=== PATIENT | female | born 1940 | race Caucasian/White ===

== ENCOUNTER 2018-12-16 15:41 | Emergency (ER) | payer MEDICARE, OTHER, SELFPAY ==
[2018-12-16 16:06] VITALS: BP 145/57; PULSE 69; RESP 20; TEMP 36.3; O2SAT 97
[2018-12-16 16:14] LABS: Appearance Urine UA SL CLOUDY; Bilirubin Urine UA NEGATIVE (NEGATIVE); Color Urine UA YELLOW; Glucose Urine UA 2+ g/dL (Negative); Ketones Urine UA NEGATIVE (NEGATIVE); Leukocyte Esterase Urine UA 1+ (NEGATIVE); Nitrite Urine UA NEGATIVE (Negative); Occult Blood Urine UA 2+ (Negative); Protein Urine UA NEGATIVE (Negative); Specific Gravity Urine UA 1.015 (1.000-1.035); Urobilinogen Urine UA 0.2 E.U./dL (0.2); pH Urine UA 5.5 (4.5-8.0)
[2018-12-16 16:21] LABS: RBC Urine 1-5/HPF (0-5/HPF); Squamous Epithelial Cell Urine 1-5 /HPF (0-5/HPF); WBC Urine 10-30/HPF (0-5/HPF)
[2018-12-16 16:22] LABS: Amorphous Sediment Urine 1+; Bacteria Urine Many (>30); Culture Indicated Urine Specimen Cultured; Mucus Urine 1+ (Negative)
--- NOTE | 2018-12-16 20:04 | DI.CT.S_ITS ---
PROCEDURE: CT KIDNEY URETER BLADDER (KUB) INDICATIONS: flank pain TECHNIQUE: Noncontrast 5 mm thick sections acquired from the diaphragms to the symphysis. 5 mm thick coronal and sagittal reformats were then performed. For radiation dose reduction, the following was used: automated exposure control, adjustment of mA and/or kV according to patient size. COMPARISON: None. FINDINGS: Image quality: Suboptimal for the evaluation of soft tissues given lack of intravenous contrast. Lung bases: 4 mm noncalcified right lower lobe pulmonary nodule and axial image 6 of series 3. Urinary system: There is a 2 mm nonobstructing nephrolith within the right kidney. No hydronephrosis bilaterally. There is bilateral renal cortical atrophy. No obstructing nephrolithiasis. The distal left ureter inserts on the anterolateral aspect of the bladder, consistent with postsurgical change. The truncated original distal left ureter is identified posterolateral to the bladder with a surgical clip noted. Ureters are otherwise nondilated bilaterally. No bladder calculi are visualized. Other solid organs: There are punctate calcifications within the right hepatic lobe. Cholelithiasis noted. There is tortuosity of the cystic duct. There is asymmetric enlargement of the pancreatic head measuring up to 4 cm in diameter, with coarse internal calcifications. Additional smaller calcified soft tissue nodules are noted adjacent to the pancreatic head, possibly representing calcified lymph nodes. There is diffuse fatty atrophy of the pancreatic body and tail. Peritoneum and bowel: Unenhanced bowel loops demonstrate normal wall thickness and caliber. No free fluid or air. No evidence of bowel obstruction. Appendix is not visualized on this exam, but there are no right lower quadrant inflammatory findings to suggest acute appendicitis. Nodes and vessels: No retroperitoneal or mesenteric adenopathy by size criteria. Aorta and inferior vena cava are normal in caliber. Moderate calcified plaque of the abdominal aorta and branch vessels noted. Abdominal wall: There is an approximately 7.0 cm fat-containing umbilical hernia. Pelvis: No free pelvic fluid. Bones: No suspicious bony lesions. No vertebral body compression fractures. Moderate multilevel degenerative changes of the size IMPRESSION: 1. 2 mm nonobstructing nephrolith in the right kidney. No hydronephrosis bilaterally. Postsurgical changes of the distal left ureter, suboptimally evaluated due to lack of intravenous contrast. 2. Cholelithiasis. 3. Enlarged pancreatic head with coarse internal calcifications, suboptimally evaluated due to lack of intravenous contrast. Adjacent smaller calcified nodules are noted. No comparison exams are available for review at this time. A pancreatic head mass cannot be excluded. Consider MRI for further evaluation. 4. Approximately 7.0 cm fat-containing umbilical hernia. 5. 4 mm noncalcified right lower lobe pulmonary nodule. Consider followup CT of the chest in one year to demonstrate stability if the patient has risk factors for development of lung malignancy (such as a history of smoking). Dictated by: Bradly Lweis M.D. on 12/16/2018 at 22:36 Approved by: Bradly Lewis M.D. on 12/16/2018 at 22:50
[2018-12-16 20:20] LABS: Add Manual Diff / Slide Review NO; Basophils Absolute Auto 0 /uL (0-100); Basophils Percent Auto 0.7 % (0-2); Eosinophils Absolute Auto 100 /uL (0-450); Eosinophils Percent Auto 2.4 % (2-4); Hematocrit 38.4 % (36-46); Hemoglobin 12.9 g/dL (12.0-16.0); Lymphocytes Absolute Auto 1500 /uL (1100-4500); Lymphocytes Percent Auto 25.3 % (25-40); Mean Corpuscular HGB Conc 33.5 % (30-36); Mean Corpuscular Hemoglobin 30.7 PG (26-34); Mean Corpuscular Volume 91.6 fL (80-100); Monocytes Absolute Auto 500 /uL (0-900); Neutrophils Absolute Auto 3600 /uL (1500-7000); Neutrophils Percent Auto 62.6 % (50-75); Platelet Count 215 X10^3/uL (150-400); Red Blood Cell Count 4.19 X10^6/uL (4.0-5.2); White Blood Cell Count 5.8 X10^3/uL (4.5-11.0)
[2018-12-16 20:36] LABS: Lactate (Lactic Acid) 1.3 mmol/L (0.7-2.1)
--- NOTE | 2018-12-16 20:36 | ED.ABDPAIN ---
HPI - Abdominal Pain <LAKISHA Beaver - Last Filed: 12/16/18 23:25> General Chief Complaint: Abdominal Pain Stated Complaint: low back pain/burning with urination x4 weeks Time Seen by Provider: 12/16/18 19:47 Source: patient Mode of arrival: ambulatory Limitations: no limitations History of Present Illness HPI narrative: The patient is a 78-year-old female nonsmoker with history of kidney stones who presents with chief complaint of flank pain, lower abdominal pain as well as dysuria urgency and frequency. She states that she just finished antibiotics for UTI, but does not know what she took. [facility] in [place], who confirms she just finished a prescription of Augmentin. She states she had a CT done 2-3 weeks ago at an outside facility, which found a kidney stone. She states she has very severe history of kidney stones and has had to have surgery multiple times. She states that despite finishing her antibiotics, she continues to have dysuria urgency and frequency. She states she has flank pain on her left side. The patient denies any fevers. She states that since her pain is so bad she vomits. Related Data Previous Rx's Medication Instructions Recorded ciprofloxacin HCl [Cipro] 500 mg PO BID #20 tab 12/16/18 ondansetron 4 mg PO TID PRN 5 Days #20 tab 12/16/18 tamsulosin [Flomax] 0.4 mg PO DAILY #7 cap 12/16/18 Review of Systems <LAKISHA Beaver - Last Filed: 12/16/18 23:25> Review of Systems GENERAL: Denies chills, fatigue, malaise, fever, sweats. HEENT: Denies sinus pain, ear pain, sore throat, difficulty swallowing, dizziness. RESPIRATORY: Denies dyspnea, cough, wheezing, hemoptysis, sputum. CARDIOVASCULAR: Denies chest pain, palpitations, orthopnea, edema, GASTROINTESTINAL: HPI : See HPI MUSCULOSKELETAL: denies weakness, joint pain, or bony pain SKIN: Denies rash, skin lesions, or other NEUROLOGIC: Denies weakness, headache, numbness, change in speech, confusion, seizures, incoordination. PSYCHIATRIC: No concerning psychosocial issues. 12 point review of systems is negative except for those stated above Exam <LAKISHA Beaver - Last Filed: 12/16/18 23:25> Narrative Exam Narrative: GENERAL: This is a well-nourished, well-developed patient, in no acute distress HEAD: Atraumatic. Normocephalic. No temporal or scalp tenderness. EYES: Pupils equal round and reactive. Extraocular motions intact. No scleral icterus. No injection or drainage. ENT: Nose without bleeding, purulent drainage or septal hematoma. Throat without erythema, tonsillar hypertrophy or exudate. Uvula midline. Airway patent. NECK: Trachea midline. No JVD or lymphadenopathy. Supple, nontender, no meningeal signs. CARDIOVASCULAR: Regular rate and rhythm RESPIRATORY: Clear to auscultation. Breath sounds equal bilaterally. No wheezes, rales, or rhonchi. No coughing. No increased respiratory effort and no stridor. No accessory muscle use. GASTROINTESTINAL: Abdomen soft, diffusely tender right lower quadrant, nondistended. No hepato-splenomegaly, or palpable masses. No guarding. Active bowel sounds. EXTREMITIES: No clubbing, cyanosis, or edema. No joint tenderness, effusion, or edema noted. BACK: Nontender without deformity or crepitance. Flank tenderness noted right side Neuro alert and oriented x4 SKIN: No rash or erythema. Initial Vital Signs Initial Vital Signs: Vital Signs Temperature 97.4 F L 12/16/18 16:06 Pulse Rate 69 12/16/18 16:06 Respiratory Rate 20 12/16/18 16:06 Blood Pressure 145/57 H 12/16/18 16:06 Pulse Oximetry 97 12/16/18 16:06 <Jelani Babcock DO - Last Filed: 12/16/18 23:45> Initial Vital Signs Initial Vital Signs: Vital Signs Temperature 97.4 F L 12/16/18 16:06 Pulse Rate 69 12/16/18 16:06 Respiratory Rate 20 12/16/18 16:06 Blood Pressure 145/57 H 12/16/18 16:06 Pulse Oximetry 97 12/16/18 16:06 Course <LAKISHA Beaver - Last Filed: 12/16/18 23:25> Orders Ordered: ED Orders 12/16/18 16:05 Urinalysis and Microscopic Stat Urine Culture Stat 12/16/18 20:00 Amylase Stat Complete Blood Count AUTO DIFF Stat Comprehensive Metabolic Panel Stat Lactate (Lactic Acid) Stat Lipase Stat Procalcitonin Stat 12/16/18 20:04 CT kidney ureter bladder (KUB) Stat Discontinued Medications Ciprofloxacin (Cipro) 500 mg PO NOW ONE Stop: 12/16/18 22:27 Last Admin: 12/16/18 22:51 Dose: 500 mg Vital Signs - 8 hr 12/16/18 16:06 12/16/18 21:00 12/16/18 22:25 Temperature 97.4 F L Pulse Rate 69 62 63 Respiratory Rate 20 15 16 Blood Pressure 145/57 H Blood Pressure [Left Arm] 140/61 148/51 H Pulse Oximetry 97 100 100 <Jelani Babcock DO - Last Filed: 12/16/18 23:45> Orders Ordered: ED Orders 12/16/18 16:05 Urinalysis and Microscopic Stat Urine Culture Stat 12/16/18 20:00 Amylase Stat Complete Blood Count AUTO DIFF Stat Comprehensive Metabolic Panel Stat Lactate (Lactic Acid) Stat Lipase Stat Procalcitonin Stat 12/16/18 20:04 CT kidney ureter bladder (KUB) Stat Discontinued Medications Ciprofloxacin (Cipro) 500 mg PO NOW ONE Stop: 12/16/18 22:27 Last Admin: 12/16/18 22:51 Dose: 500 mg Vital Signs - 8 hr 12/16/18 16:06 12/16/18 21:00 12/16/18 22:25 Temperature 97.4 F L Pulse Rate 69 62 63 Respiratory Rate 20 15 16 Blood Pressure 145/57 H Blood Pressure [Left Arm] 140/61 148/51 H Pulse Oximetry 97 100 100 MDM - Abdominal Pain <LAKISHA Beaver - Last Filed: 12/16/18 23:25> Lab Data Result diagrams: 12/16/18 20:00 12/16/18 20:00 Lab Results 12/16/18 12/16/18 12/16/18 Range/Units 16:05 20:00 20:00 WBC 5.8 (4.5-11.0) X10^3/uL RBC 4.19 (4.0-5.2) X10^6/uL Hgb 12.9 (12.0-16.0) g/dL Hct 38.4 (36-46) % MCV 91.6 (80-100) fL MCH 30.7 (26-34) PG MCHC 33.5 (30-36) % RDW 14.0 (11.6-14.8) % Plt Count 215 (150-400) X10^3/uL Neut % (Auto) 62.6 (50-75) % Lymph % (Auto) 25.3 (25-40) % [place] % (Auto) 9.0 (3-14) % Eos % (Auto) 2.4 (2-4) % Baso % (Auto) 0.7 (0-2) % Neut # (Auto) 3600 (6192-6442) /uL Lymph # (Auto) 1500 (2438-9335) /uL [place] # (Auto) 500 (0-900) /uL Eos # (Auto) 100 (0-450) /uL Baso # (Auto) 0 (0-100) /uL Sodium (137-145) mmol/L Potassium (3.4-5.1) mmol/L Chloride (98-107) mmol/L Carbon Dioxide (22-32) mmol/L BUN (7-17) mg/dL Creatinine (0.52-1.04) mg/dL Estimated GFR (>60) mL/min BUN/Creatinine Ratio (6-22) Glucose (80-110) mg/dL Lactate (0.7-2.1) mmol/L Calcium (8.4-10.2) mg/dL Total Bilirubin (0.2-1.3) mg/dL AST (14-36) IU/L ALT (9-52) IU/L Alkaline Phosphatase (38-126) U/L Total Protein (6.3-8.2) g/dL Albumin (3.5-5.0) g/dL Globulin (1.7-4.1) g/dL Albumin/Globulin Ratio (1.0-2.8) Amylase (30-110) U/L Lipase (23-300) U/L Procalcitonin < 0.05 (<0.5) ng/mL Urine Color Yellow Urine Appearance Sl cloudy Urine pH 5.5 (4.5-8.0) Ur Specific [place] 1.015 (1.000-1.035) Urine Protein Negative (Negative) Urine Glucose (UA) 2+ H (Negative) g/dL Urine Ketones Negative (NEGATIVE) Urine Occult Blood 2+ H (Negative) Urine Nitrate Negative (Negative) Urine Bilirubin Negative (NEGATIVE) Urine Urobilinogen 0.2 (0.2) E.U./dL Ur Leukocyte Esterase 1+ H (NEGATIVE) Urine RBC 1-5/hpf (0-5/HPF) Urine WBC 10-30/hpf H (0-5/HPF) Ur Squamous Epith Cells 1-5 /hpf (0-5/HPF) Amorphous Sediment 1+ Urine Bacteria Many (>30) H (None) Urine Mucus 1+ H (Negative) Ur Culture Indicated? Specimen cultured 12/16/18 12/16/18 Range/Units 20:00 20:00 WBC (4.5-11.0) X10^3/uL RBC (4.0-5.2) X10^6/uL Hgb (12.0-16.0) g/dL Hct (36-46) % MCV (80-100) fL MCH (26-34) PG MCHC (30-36) % RDW (11.6-14.8) % Plt Count (150-400) X10^3/uL Neut % (Auto) (50-75) % Lymph % (Auto) (25-40) % [place] % (Auto) (3-14) % Eos % (Auto) (2-4) % Baso % (Auto) (0-2) % Neut # (Auto) (0904-4121) /uL Lymph # (Auto) (4322-5501) /uL [place] # (Auto) (0-900) /uL Eos # (Auto) (0-450) /uL Baso # (Auto) (0-100) /uL Sodium 139 (137-145) mmol/L Potassium 3.7 (3.4-5.1) mmol/L Chloride 103 (98-107) mmol/L Carbon Dioxide 29 (22-32) mmol/L BUN 25 H (7-17) mg/dL Creatinine 1.10 H (0.52-1.04) mg/dL Estimated GFR 48.2 L (>60) mL/min BUN/Creatinine Ratio 22.7 H (6-22) Glucose 218 H (80-110) mg/dL Lactate 1.3 (0.7-2.1) mmol/L Calcium 8.4 (8.4-10.2) mg/dL Total Bilirubin 0.6 (0.2-1.3) mg/dL AST 32 (14-36) IU/L ALT 34 (9-52) IU/L Alkaline Phosphatase 183 H (38-126) U/L Total Protein 6.6 (6.3-8.2) g/dL Albumin 3.7 (3.5-5.0) g/dL Globulin 2.9 (1.7-4.1) g/dL Albumin/Globulin Ratio 1.3 (1.0-2.8) Amylase 59 (30-110) U/L Lipase 29 (23-300) U/L Procalcitonin (<0.5) ng/mL Urine Color Urine Appearance Urine pH (4.5-8.0) Ur Specific [place] (1.000-1.035) Urine Protein (Negative) Urine Glucose (UA) (Negative) g/dL Urine Ketones (NEGATIVE) Urine Occult Blood (Negative) Urine Nitrate (Negative) Urine Bilirubin (NEGATIVE) Urine Urobilinogen (0.2) E.U./dL Ur Leukocyte Esterase (NEGATIVE) Urine RBC (0-5/HPF) Urine WBC (0-5/HPF) Ur Squamous Epith Cells (0-5/HPF) Amorphous Sediment Urine Bacteria (None) Urine Mucus (Negative) Ur Culture Indicated? MDM Narrative Medical decision making narrative: The patient is a 78-year-old female who presents with continued urinary symptoms. She also has recent history of kidney stones. I did obtain a CT KUB to ensure that she did have any obstructing stones. It appears she did pass her previous 5 mm stone. I did obtain her previous CT records from outside facility. She does not have a white count, does not have an elevated lactate and procalcitonin. She does have a 2 mm stone in her right kidney which should not be causing her distress. Her creatinine is 1.1. I did speak with Dr. Andrew from [facility] regarding the patient given her continued stones, elevated creatinine, and concerns for infection. I did place the patient on Cipro and give her prescriptions of Flomax as well as Zofran. She declined any pain medication. Of note on the patient's CT scan, a pulmonary nodules noted. I discussed this with the patient encourage her to follow up with her primary care provider as soon as possible. She does have a scheduled appointment in the next few days. The patient stated understanding of return precautions including inability keep down fluids, high fever chest pain shortness of breath etc. Discussed at length following up with primary care provider as well as Urology if needed. Patient does not want contact information for [facility] urology as it is too far away. She is hemodynamically stable and afebrile throughout her stay in the emergency department. Discussed monitoring for tendon pain on Cipro. No questions or concerns upon discharge. <Jelani Babcock, DO - Last Filed: 12/16/18 23:45> Lab Data Lab Results 12/16/18 12/16/18 12/16/18 Range/Units 16:05 20:00 20:00 WBC 5.8 (4.5-11.0) X10^3/uL RBC 4.19 (4.0-5.2) X10^6/uL Hgb 12.9 (12.0-16.0) g/dL Hct 38.4 (36-46) % MCV 91.6 (80-100) fL MCH 30.7 (26-34) PG MCHC 33.5 (30-36) % RDW 14.0 (11.6-14.8) % Plt Count 215 (150-400) X10^3/uL Neut % (Auto) 62.6 (50-75) % Lymph % (Auto) 25.3 (25-40) % [place] % (Auto) 9.0 (3-14) % Eos % (Auto) 2.4 (2-4) % Baso % (Auto) 0.7 (0-2) % Neut # (Auto) 3600 (3024-4780) /uL Lymph # (Auto) 1500 (5525-9531) /uL [place] # (Auto) 500 (0-900) /uL Eos # (Auto) 100 (0-450) /uL Baso # (Auto) 0 (0-100) /uL Sodium (137-145) mmol/L Potassium (3.4-5.1) mmol/L Chloride (98-107) mmol/L Carbon Dioxide (22-32) mmol/L BUN (7-17) mg/dL Creatinine (0.52-1.04) mg/dL Estimated GFR (>60) mL/min BUN/Creatinine Ratio (6-22) Glucose (80-110) mg/dL Lactate (0.7-2.1) mmol/L Calcium (8.4-10.2) mg/dL Total Bilirubin (0.2-1.3) mg/dL AST (14-36) IU/L ALT (9-52) IU/L Alkaline Phosphatase (38-126) U/L Total Protein (6.3-8.2) g/dL Albumin (3.5-5.0) g/dL Globulin (1.7-4.1) g/dL Albumin/Globulin Ratio (1.0-2.8) Amylase (30-110) U/L Lipase (23-300) U/L Procalcitonin < 0.05 (<0.5) ng/mL Urine Color Yellow Urine Appearance Sl cloudy Urine pH 5.5 (4.5-8.0) Ur Specific [place] 1.015 (1.000-1.035) Urine Protein Negative (Negative) Urine Glucose (UA) 2+ H (Negative) g/dL Urine Ketones Negative (NEGATIVE) Urine Occult Blood 2+ H (Negative) Urine Nitrate Negative (Negative) Urine Bilirubin Negative (NEGATIVE) Urine Urobilinogen 0.2 (0.2) E.U./dL Ur Leukocyte Esterase 1+ H (NEGATIVE) Urine RBC 1-5/hpf (0-5/HPF) Urine WBC 10-30/hpf H (0-5/HPF) Ur Squamous Epith Cells 1-5 /hpf (0-5/HPF) Amorphous Sediment 1+ Urine Bacteria Many (>30) H (None) Urine Mucus 1+ H (Negative) Ur Culture Indicated? Specimen cultured 12/16/18 12/16/18 Range/Units 20:00 20:00 WBC (4.5-11.0) X10^3/uL RBC (4.0-5.2) X10^6/uL Hgb (12.0-16.0) g/dL Hct (36-46) % MCV (80-100) fL MCH (26-34) PG MCHC (30-36) % RDW (11.6-14.8) % Plt Count (150-400) X10^3/uL Neut % (Auto) (50-75) % Lymph % (Auto) (25-40) % [place] % (Auto) (3-14) % Eos % (Auto) (2-4) % Baso % (Auto) (0-2) % Neut # (Auto) (7992-7327) /uL Lymph # (Auto) (1640-3286) /uL [place] # (Auto) (0-900) /uL Eos # (Auto) (0-450) /uL Baso # (Auto) (0-100) /uL Sodium 139 (137-145) mmol/L Potassium 3.7 (3.4-5.1) mmol/L Chloride 103 (98-107) mmol/L Carbon Dioxide 29 (22-32) mmol/L BUN 25 H (7-17) mg/dL Creatinine 1.10 H (0.52-1.04) mg/dL Estimated GFR 48.2 L (>60) mL/min BUN/Creatinine Ratio 22.7 H (6-22) Glucose 218 H (80-110) mg/dL Lactate 1.3 (0.7-2.1) mmol/L Calcium 8.4 (8.4-10.2) mg/dL Total Bilirubin 0.6 (0.2-1.3) mg/dL AST 32 (14-36) IU/L ALT 34 (9-52) IU/L Alkaline Phosphatase 183 H (38-126) U/L Total Protein 6.6 (6.3-8.2) g/dL Albumin 3.7 (3.5-5.0) g/dL Globulin 2.9 (1.7-4.1) g/dL Albumin/Globulin Ratio 1.3 (1.0-2.8) Amylase 59 (30-110) U/L Lipase 29 (23-300) U/L Procalcitonin (<0.5) ng/mL Urine Color Urine Appearance Urine pH (4.5-8.0) Ur Specific [place] (1.000-1.035) Urine Protein (Negative) Urine Glucose (UA) (Negative) g/dL Urine Ketones (NEGATIVE) Urine Occult Blood (Negative) Urine Nitrate (Negative) Urine Bilirubin (NEGATIVE) Urine Urobilinogen (0.2) E.U./dL Ur Leukocyte Esterase (NEGATIVE) Urine RBC (0-5/HPF) Urine WBC (0-5/HPF) Ur Squamous Epith Cells (0-5/HPF) Amorphous Sediment Urine Bacteria (None) Urine Mucus (Negative) Ur Culture Indicated? Discharge Plan Departure Patient Disposition: Home Clinical Impression: Kidney stone on right side, Acute UTI Discharge Date/Time: 12/16/18 23:20 Interventions: ED Discharge Assessment Last Done: 12/16/18 23:20 Instructions: Kidney Stones -- Adult, DI for Kidney Stones, DI for Urinary Tract Infection (UTI) Activity Restrictions/Additional Instructions: Your urine is infected. I am starting on Cipro which is an antibiotic. We are doing a urine culture to make sure that this takes care of your infection Your 5 mm kidney stone looks like it has passed. You have a small stone in your right kidney, which should not be causing any pain. Your CT also picked up a right lower lobe pulmonary nodule. Please follow up with primary care provider about this finding You can feel free to follow up with the urologist regarding her kidney stones. Please follow up with primary care provider soon as possible. Monitor for fever, inability keep down fluids or any acute concerns come back to the emergency department if necessary Prescriptions: New ciprofloxacin HCl [Cipro] 500 mg tablet 500 mg PO BID Qty: 20 RF: 0 tamsulosin [Flomax] 0.4 mg capsule 0.4 mg PO DAILY Qty: 7 RF: 0 ondansetron 4 mg tablet,disintegrating 4 mg PO TID PRN (Reason: nausea and vomiting) 5 Days Qty: 20 RF: 0 Referrals: Tammie Baum MD [Primary Care Provider] - <Jelani Babcock DO - Last Filed: 12/16/18 23:45> Cosign ED Attending [place] Attestation: I was available for consultation during this patient's emergency department encounter
[2018-12-16 20:37] LABS: Alanine Aminotransferase 34 IU/L (9-52); Albumin 3.7 g/dL (3.5-5.0); Albumin Globulin Ratio 1.3 (1.0-2.8); Alkaline Phosphatase 183 U/L (38-126); Amylase 59 U/L (30-110); Aspartate Aminotransferase 32 IU/L (14-36); BUN Creatinine Ratio 22.7 (6-22); Bilirubin Total 0.6 mg/dL (0.2-1.3); Blood Urea Nitrogen 25 mg/dL (7-17); Calcium 8.4 mg/dL (8.4-10.2); Carbon Dioxide 29 mmol/L (22-32); Chloride 103 mmol/L (98-107); Estimated Glomerular Filt Rate 48.2 mL/min (>60); Globulin 2.9 g/dL (1.7-4.1); Glucose 218 mg/dL (80-110); HEMOLYSIS < 15 (0-50); Lipase 29 U/L (23-300); Potassium 3.7 mmol/L (3.4-5.1); Sodium 139 mmol/L (137-145); Total Protein 6.6 g/dL (6.3-8.2)
[2018-12-16 20:54] LABS: Procalcitonin < 0.05 ng/mL (<0.5)
[2018-12-16 21:00] VITALS: BP 140/61; PULSE 62; RESP 15; O2SAT 100
[2018-12-16 22:25] VITALS: BP 148/51; PULSE 63; RESP 16; O2SAT 100
[2018-12-16] MEDS: CIPROFLOXACIN 500 MG TABLET PO (22:51)
== END 2018-12-16 23:20 | disposition home or self-care (01) ==
PROVIDERS: Emergency Medicine; Emergency Provider Nurse Practitioner Family; PCP Family Medicine
DX: N20.0 Calculus of kidney (principal); N39.0 Urinary tract infection, site not specified
CPT/HCPCS: 36591; 74176; 80053; 81001; 82150; 83605; 83690; 84145; 85025; 87077; 87086; 87186; 99282; 99284

== ENCOUNTER 2020-11-18 16:05 | Emergency (ER) | payer MEDICARE, OTHER, SELFPAY ==
[2020-11-18] VITALS (20 sets, daily range): BP systolic 117–216; BP diastolic 46–82; PULSE 69–102; RESP 0–33; TEMP 37.1; O2SAT 79–99; BMI 37.0
--- NOTE | 2020-11-18 16:10 | DI.RAD.S_ITS ---
PROCEDURE: XR CHEST 1V INDICATIONS: chest pain TECHNIQUE: One view of the chest was acquired. COMPARISON: None. FINDINGS: Surgical changes and devices: Overlying EKG wires. Exam is somewhat limited given patient positioning and body habitus. Lungs and pleura: There is slight hyperinflation. No focal consolidation, pneumothorax, or pleural effusion. Mediastinum: Mediastinal contours appear normal. Heart size is normal. Bones and chest wall: No suspicious bony lesions. Overlying soft tissues appear unremarkable. IMPRESSION: No evidence of an acute cardiopulmonary abnormality within limits of this exam. Dictated by: Kyrie Holliday D.O. on 11/18/2020 at 15:36 Approved by: Kyrie Holliday D.O. on 11/18/2020 at 15:37
--- NOTE | 2020-11-18 17:11 | ED.CHESTPAIN ---
HPI - Chest Pain General Chief Complaint: Abdominal Pain Stated Complaint: Chest pain Time Seen by Provider: 11/18/20 16:10 Source: patient Mode of arrival: Ambulatory Limitations: no limitations Related Data Previous Rx's Medication Instructions Recorded ciprofloxacin HCl [Cipro] 500 mg PO BID #20 tab 12/16/18 tamsulosin [Flomax] 0.4 mg PO DAILY #7 cap 12/16/18 Allergies Allergy/AdvReac Type Severity Reaction Status Date / Time No Known Drug Allergies Allergy Verified 11/18/20 16:24 Patient History Social History Smoking Status: Former smoker Smoking Status: Former smoker alcohol intake frequency: a few times a month Substance Use Type: does not use Exam Initial Vital Signs Initial Vital Signs: Vital Signs Pulse Rate 69 11/18/20 16:24 Respiratory Rate 18 11/18/20 16:24 Blood Pressure 181/76 H 11/18/20 16:24 Pulse Oximetry 99 11/18/20 16:24 Course Orders Ordered: ED Orders 11/18/20 16:10 XR chest 1V Stat Complete Blood Count AUTO DIFF Stat Comprehensive Metabolic Panel Stat Lipase Stat Magnesium Stat Partial Thromboplastin Time Stat Prothrombin Time INR Stat Troponin & CK Cardiac Panel Stat EKG-12 Lead Stat 11/18/20 16:35 Urine Microscopic Stat 11/18/20 16:45 Blood Culture Stat Lactate (Lactic Acid) Stat Vital Signs Vital signs: Vital Signs - 8 hr 11/18/20 16:24 Pulse Rate 69 Respiratory Rate 18 Blood Pressure 181/76 H Pulse Oximetry 99 MDM - Chest Pain Lab Data Attestation: I reviewed the patient's lab results. Labs: Urine Dip Bedside Urine Glucose Negative Bedside Urine Bilirubin - Negative Bedside Urine Ketone - Negative Urine Specific [place] 1.030 Bedside Urine Occult Blood + Bedside Urine pH 6 Bedside Urine Protein + 30 Bedside Urine Urobilinogen 1+ 2mg Bedside Urine Nitrite - Negative Bedside Urine Leukocytes ++ 125 Esterase Imaging Data Chest x-ray: Radiologist's Impression: [address] [id number] ReportSigned Patient: Nelida Mena MMR#: [id number]: [id number]:[id number]/Sex: 80 / FDate of Service: 11/18/20Loc: EDAccession Number: [id number] Procedure: XR chest 1V Ordering Provider: Jesus Lares D.O. PROCEDURE: XR CHEST 1V INDICATIONS: chest pain TECHNIQUE: One view of the chest was acquired. COMPARISON: None. FINDINGS: Surgical changes and devices: Overlying EKG wires. Exam is somewhat limited given patient positioning and body habitus. Lungs and pleura: There is slight hyperinflation. No focal consolidation, pneumothorax, or pleural effusion. Mediastinum: Mediastinal contours appear normal. Heart size is normal. Bones and chest wall: No suspicious bony lesions. Overlying soft tissues appear unremarkable. IMPRESSION: No evidence of an acute cardiopulmonary abnormality within limits of this exam. Dictated by: Kyrie Holliday D.O. on 11/18/2020 at 15:36 Approved by: Kyrie Holliday D.O. on 11/18/2020 at 15:37 ECG Data Attestation: I personally reviewed and interpreted this ECG as follows: Interpretation: Likely sinus rhythm although difficult to discern P waves. Rate 82, P are 146 QRS [address] change. Patient has what appears to be motion artifact obscuring. No prior EKG for comparison. Discharge Plan Departure Prescriptions: No Action ciprofloxacin HCl [Cipro] 500 mg tablet 500 mg PO BID Qty: 20 RF: 0 tamsulosin [Flomax] 0.4 mg capsule 0.4 mg PO DAILY Qty: 7 RF: 0
[2020-11-18 17:32] LABS: Lactate (Lactic Acid) 3.7 mmol/L (0.7-2.1)
[2020-11-18 17:34] LABS: Alanine Aminotransferase 112 IU/L (<35); Albumin 4.4 g/dL (3.5-5.0); Albumin Globulin Ratio 1.2 (1.0-2.8); Alkaline Phosphatase 596 U/L (38-126); Aspartate Aminotransferase 304 IU/L (14-36); BUN Creatinine Ratio 24.1 (6-22); Blood Urea Nitrogen 26 mg/dL (7-17); Calcium 9.3 mg/dL (8.4-10.2); Carbon Dioxide 24 mmol/L (22-32); Chloride 100 mmol/L (98-107); Creatine Kinase 95 U/L (30-135); Estimated Glomerular Filt Rate 48.9 mL/min (>60); Globulin 3.6 g/dL (1.7-4.1); Glucose 181 mg/dL (80-110); HEMOLYSIS 45 (0-50); Magnesium 1.7 mg/dL (1.6-2.3); Potassium 3.8 mmol/L (3.4-5.1); Sodium 138 mmol/L (137-145)
[2020-11-18 17:42] LABS: Lipase 2860 U/L (23-300)
[2020-11-18 17:45] LABS: Troponin I < 0.012 ng/mL (0.01-0.034)
[2020-11-18 17:47] LABS: RBC Urine 5-10/HPF (0-5/HPF); WBC Urine 10-30/HPF (0-5/HPF)
[2020-11-18 17:48] LABS: Bacteria Urine Many (>30); Culture Indicated Urine Specimen Cultured; Mucus Urine 1+ (Negative); Squamous Epithelial Cell Urine 1-5 /HPF (0-5/HPF)
--- NOTE | 2020-11-18 17:51 | DI.CT.S_ITS ---
PROCEDURE: CT ABDOMEN PELVIS W CON INDICATIONS: abdominal pain, elevated LFTs. TECHNIQUE: After the administration of intravenous contrast, 5 mm thick sections acquired from the diaphragm to the symphysis. 5 mm coronal and sagittal reformats were acquired. For radiation dose reduction, the following was used: automated exposure control, adjustment of mA and/or kV according to patient size. COMPARISON: , , ABDOMEN LIMITED, 11/18/2020, 18:06. FINDINGS: Image quality: Reduced by absence of oral contrast.. ABDOMEN: Lung bases: Lung bases are clear. Heart size is normal. Solid organs: Liver is normal in size and enhancement but there is moderate intrahepatic biliary distension.. Gallbladder is mildly distended as noted during ultrasound scanning earlier today, and there are 2 small calcified gallstones within the gallbladder lumen that are nonobstructive. The common bile duct extends inferiorly towards the duodenal lumen, but is impinged upon by a partially calcified pancreatic head mass which measures up to 4.0 cm AP and 3.9 cm transverse. The common duct itself measures up to 1.6 cm. Partially calcified adjacent lymph nodes are noted just at the midline anterior to the aorta level, mid renal anatomic localization. There may be noncalcified nodes extending anteriorly towards the ligament of Treitz, but these may represent unopacified bowel loops given the absence of oral contrast. A small calcified lymph node lies immediately anterior to the inferior vena cava seen on series 2, image 25. The epicenter of the pancreatic mass is series 2, image 31. Biliary system is non dilated. Pancreas enhances abnormally from the pancreatic head mass leftward, hypoenhancing, with an appearance of generalized pancreatic body and tail atrophy.. Spleen is normal in size and enhancement. No adrenal nodules. Kidneys demonstrate normal size and enhancement, without hydronephrosis. Peritoneum and bowel: Bowel loops demonstrate normal wall thickness and caliber. No free fluid or air. Nodes and vessels: No retroperitoneal or mesenteric adenopathy by size criteria. Aorta and inferior vena cava are normal in size. Miscellaneous: No ventral hernias. PELVIS: Genitourinary: Bladder wall thickness is normal. Miscellaneous: No inguinal hernias or adenopathy. Bones: No suspicious bony lesions. No vertebral body compression fractures. IMPRESSION: Abnormal distension of the common bile duct is secondary to a pancreatic head mass with internal calcifications. Several small lymph nodes contain calcifications also immediately adjacent. What may be unopacified small bowel loops extend forward from the mass area to the ligament of Treitz area, and the absence of oral contrast disallows differentiating between unopacified bowel loops and noncalcified lymph nodes in that area. Intrahepatic biliary distension is present, associated with the obstructive influence by the pancreatic head mass. The pancreatic parenchyma is relatively atrophic from the pancreatic head mass area leftward. Dictated by: Rick Alvarenga M.D. on 11/18/2020 at 19:13 Approved by: Rick lAvarenga M.D. on 11/18/2020 at 19:37
--- NOTE | 2020-11-18 17:56 | DI.US.S_ITS ---
PROCEDURE: US ABDOMEN LIMITED INDICATIONS: RIGHT UPPER QUADRANT PAIN TECHNIQUE: Real-time focused scanning was performed of the abdomen, with image documentation. COMPARISON: CT KUB 12/16/18. FINDINGS: The liver is normal in size and echotexture, and demonstrates no intrahepatic biliary distension. The gallbladder contains stones measuring approximately 8 mm in diameter, and the gallbladder is abnormally enlarged at 2.8 x 3.4 x 8.2 cm. The common hepatic duct is abnormally dilated at 10.1 cm and the common bile duct more distally measures 13.9 cm. Pancreas is poorly visualized due to bowel gas. IMPRESSION: Gallstones within the gallbladder lumen. Abnormal biliary ductal distension. MR cholangiogram may be warranted for accurate assessment of distal common duct stone. Dictated by: Rick Alvarenga M.D. on 11/18/2020 at 18:44 Approved by: Rick Alvarenga M.D. on 11/18/2020 at 18:46
[2020-11-18] MEDS: ONDANSETRON 4 MG/2 ML INJ IV (18:05)
[2020-11-18] MEDS: MORPHINE 4 MG/ML INJ IV ×2 (18:05→22:09)
[2020-11-18] MEDS: SODIUM CHLORIDE 0.9% 1,000 ML 1000 ML IV (18:06)
--- NOTE | 2020-11-18 18:25 | ED_ITS ---
HPI - Abdominal Pain General Chief Complaint: Abdominal Pain Stated Complaint: Chest pain Time Seen by Provider: 11/18/20 18:25 Source: patient Mode of arrival: Ambulatory Limitations: no limitations History of Present Illness HPI narrative: Patient is a 80-year-old female with history of pancreatic cancer presenting with abdominal pain and chest pain. She says it started last evening around 9:00 p.m. but got worse after she had lunch today of aches. She is quite tender in her right upper quadrant. She does have radiation into her chest at times. She feels nauseous. She is being treated for pancreatic cancer in [place]. She denies a fever but is having quite a lot of chills and can not seem to get warm. MD complaint: abdominal pain Onset (ago): day(s) (1) Pain Consistency: constant Location: RUQ and epigastric Severity: moderate Severity scale (1-10): 7 Quality: sharp Related Data Home Medications Medication Instructions Recorded Confirmed atorvastatin 40 mg PO DAILY 11/18/20 11/18/20 cholecalciferol (vitamin D3) 1,250 mcg PO QWEEK 11/18/20 11/18/20 diphenoxylate-atropine tab 11/18/20 11/18/20 hydrochlorothiazide 25 mg 11/18/20 insulin aspart U-100 unit SUBCUT 11/18/20 11/18/20 insulin aspart U-100 [Novolog unit SUBCUT 11/18/20 11/18/20 Flexpen U-100 Insulin] lisinopril 20 mg 11/18/20 omeprazole 40 mg PO BID 11/18/20 11/18/20 sertraline 100 mg PO DAILY 11/18/20 11/18/20 solifenacin 10 mg PO 11/18/20 Allergies Allergy/AdvReac Type Severity Reaction Status Date / Time No Known Drug Allergies Allergy Verified 11/18/20 16:24 Review of Systems Review of Systems ROS Unobtainable: All systems reviewed & are unremarkable except as noted in HPI and below Constitutional Constitutional: Reports chills, Denies fever(s), Denies frequent falls and Denies poor appetite ENT Ears, Nose, Mouth, and Throat: Denies change in voice, Denies dizziness, Denies neck pain and Denies sore throat Cardiovascular Cardiovascular: Reports chest pain, Denies irregular heart rhythm, Denies lightheadedness, Denies palpitations, Denies dyspnea, Denies dyspnea on exertion and Denies orthopnea Respiratory Respiratory: Denies cough, Denies dyspnea, Denies dyspnea on exertion and Denies wheezing Gastrointestinal Gastrointestinal: Reports as per HPI, Reports abdominal pain and Reports nausea Genitourinary Genitourinary: Denies urinary hesitancy and Denies urinary incontinence Genitourinary: Denies urinary incontinence and Denies urinary hesitancy Musculoskeletal Musculoskeletal: Denies back pain, Denies myalgias, Denies neck pain and Denies numbness Integumentary/Breasts Skin/Breast: Denies pruritus, Denies erythema, Denies rash and Denies wounds Neurologic Neurologic: Denies behavioral changes, Denies confusion, Denies dizziness, Denies frequent falls and Denies numbness Psychiatric Psychiatric: Denies behavioral changes and Denies confusion Endocrine Endocrine: Denies palpitations Allergic/Immunologic Allergic/Immunologic: Denies wheezing Patient History Medical History (Updated 11/18/20 @ 21:48 by Megan Almanza DO) Kidney stone on left side Pancreatic cancer Social History Smoking Status: Former smoker Smoking Status: Former smoker alcohol intake frequency: a few times a month Substance Use Type: does not use Exam Initial Vital Signs Initial Vital Signs: Vital Signs Pulse Rate 72 11/18/20 16:21 Respiratory Rate 14 11/18/20 16:21 Pulse Oximetry 94 11/18/20 16:21 GENERAL: Alert 80-year-old female BMI 37 appears uncomfortable HEENT: Head atraumatic,EOMI, pupils reactive, face symmetric, moist mucous membranes CARDIOVASCULAR: Regular rate and rhythm without murmurs, rubs or gallops. RESPIRATORY: Breath sounds equal bilaterally, no wheezes rales or rhonchi. ABDOMEN: Soft, tender right upper quadrant epigastric positive Thomas sign EXTREMITIES: Normal range of motion, no clubbing or edema. Neurovascularly intact NEUROLOGICAL: Alert and oriented x4.Normal gait and speech. Cranial nerves II through XII grossly intact. SKIN: Warm, dry, no laceration, no petechiae, no rashes or lesions. Course Orders Ordered: ED Orders 11/18/20 17:51 CT abdomen pelvis w con Stat 11/18/20 17:56 US abdomen limited Stat 11/18/20 18:35 Complete Blood Count AUTO DIFF Stat Partial Thromboplastin Time Stat Prothrombin Time INR Stat Discontinued Medications Sodium Chloride (Normal Saline 0.9%) 1,000 mls @ 1,000 mls/hr IV BOLUS ONE Stop: 11/18/20 18:50 Last Infusion: 11/18/20 19:54 Dose: 0 mls/hr Documented by: Admin: 11/18/20 18:06 Dose: 1,000 mls/hr Documented by: TE Piperacillin/Tazobactam/Dextrose (Zosyn) 4.5 gm in 100 mls @ 200 mls/hr IV NOW AYSHA Piperacillin/Tazobactam/Dextrose (Zosyn) 4.5 gm in 100 mls @ 200 mls/hr IV NOW AYSHA Piperacillin Sod/Tazobactam (Sod 4.5 gm/ Sodium Chloride) 100 mls @ 100 mls/hr IV NOW ONE Stop: 11/18/20 21:44 Last Infusion: 11/18/20 22:10 Dose: 0 mls/hr Documented by: Admin: 11/18/20 21:16 Dose: 100 mls/hr Documented by: TE Morphine Sulfate (Morphine 4 Mg/Ml Inj) 4 mg IV NOW ONE Stop: 11/18/20 17:52 Last Admin: 11/18/20 18:05 Dose: 4 mg Documented by: TE Morphine Sulfate (Morphine 4 Mg/Ml Inj) 4 mg IV NOW ONE Stop: 11/18/20 22:07 Last Admin: 11/18/20 22:09 Dose: 4 mg Documented by: TE Ondansetron HCl (Ondansetron 4 Mg/2 Ml Inj) 4 mg IV NOW ONE Stop: 11/18/20 17:52 Last Admin: 11/18/20 18:05 Dose: 4 mg Documented by: TE Vital Signs Vital signs: Vital Signs - 8 hr 11/18/20 19:11 11/18/20 19:13 11/18/20 19:30 Pulse Rate 102 H 101 H 101 H Respiratory Rate 21 20 24 Blood Pressure 197/75 H 184/79 H Pulse Oximetry 92 11/18/20 20:00 11/18/20 20:30 11/18/20 20:31 Pulse Rate 100 H 97 H 97 H Respiratory Rate 21 19 15 Blood Pressure 184/75 H 169/67 H Pulse Oximetry 93 94 91 11/18/20 21:06 11/18/20 21:09 11/18/20 21:30 Pulse Rate 99 H 98 H 99 H Respiratory Rate 18 17 Blood Pressure 117/46 L 118/48 L Pulse Oximetry 95 93 96 11/18/20 22:00 Pulse Rate 97 H Respiratory Rate 18 Blood Pressure 133/60 Pulse Oximetry 94 MDM - Abdominal Pain Lab Data Attestation: I reviewed the patient's lab results. Result diagrams: 11/18/20 18:35 11/18/20 17:00 Labs: Lab Results 11/18/20 11/18/20 11/18/20 Range/Units 16:22 17:00 17:00 WBC (4.5-11.0) X10^3/uL RBC (4.0-5.2) X10^6/uL Hgb (12.0-16.0) g/dL Hct (36-46) % MCV (80-100) fL MCH (26-34) PG MCHC (30-36) % RDW (11.6-14.8) % Plt Count (150-400) X10^3/uL Neut % (Auto) (50-75) % Lymph % (Auto) (25-40) % [place] % (Auto) (3-14) % Eos % (Auto) (2-4) % Baso % (Auto) (0-2) % Neut # (Auto) (2659-5891) /uL Lymph # (Auto) (4144-1743) /uL [place] # (Auto) (0-900) /uL Eos # (Auto) (0-450) /uL Baso # (Auto) (0-100) /uL PT (10.1-12.7) SECONDS INR (0.9-1.3) APTT (26.4-36.2) SECONDS Sodium 138 (137-145) mmol/L Potassium 3.8 (3.4-5.1) mmol/L Chloride 100 (98-107) mmol/L Carbon Dioxide 24 (22-32) mmol/L BUN 26 H (7-17) mg/dL Creatinine 1.08 H (0.52-1.04) mg/dL Estimated GFR 48.9 L (>60) mL/min BUN/Creatinine Ratio 24.1 H (6-22) Glucose 181 H (80-110) mg/dL Lactate 3.7 H (0.7-2.1) mmol/L Calcium 9.3 (8.4-10.2) mg/dL Magnesium 1.7 (1.6-2.3) mg/dL Total Bilirubin 3.0 H (0.2-1.3) mg/dL AST 304 H (14-36) IU/L ALT 112 H (<35) IU/L Alkaline Phosphatase 596 H (38-126) U/L Total Creatine Kinase 95 (30-135) U/L CK-MB (CK-2) TNP CK-MB (CK-2) Rel Index TNP Troponin I < 0.012 (0.01-0.034) ng/mL Total Protein 8.0 (6.3-8.2) g/dL Albumin 4.4 (3.5-5.0) g/dL Globulin 3.6 (1.7-4.1) g/dL Albumin/Globulin Ratio 1.2 (1.0-2.8) Lipase 2860 H (23-300) U/L Urine RBC 5-10/hpf H (0-5/HPF) Urine WBC 10-30/hpf H (0-5/HPF) Ur Squamous Epith Cells 1-5 /hpf (0-5/HPF) Urine Bacteria Many (>30) H (None) Urine Mucus 1+ H (Negative) Ur Culture Indicated? Specimen cultured SARS-CoV-2 (PCR) (Negative) 11/18/20 11/18/20 11/18/20 Range/Units 17:08 18:35 18:35 WBC 10.4 (4.5-11.0) X10^3/uL RBC 4.16 (4.0-5.2) X10^6/uL Hgb 13.1 (12.0-16.0) g/dL Hct 39.3 (36-46) % MCV 94.5 (80-100) fL MCH 31.5 (26-34) PG MCHC 33.4 (30-36) % RDW 14.4 (11.6-14.8) % Plt Count 176 (150-400) X10^3/uL Neut % (Auto) 95.9 H (50-75) % Lymph % (Auto) 2.3 L (25-40) % [place] % (Auto) 1.6 L (3-14) % Eos % (Auto) 0.1 L (2-4) % Baso % (Auto) 0.1 (0-2) % Neut # (Auto) 58848 H (2312-2540) /uL Lymph # (Auto) 200 L (2470-5149) /uL [place] # (Auto) 200 (0-900) /uL Eos # (Auto) 0 (0-450) /uL Baso # (Auto) 0 (0-100) /uL PT 12.7 (10.1-12.7) SECONDS INR 1.1 (0.9-1.3) APTT 29 (26.4-36.2) SECONDS Sodium (137-145) mmol/L Potassium (3.4-5.1) mmol/L Chloride (98-107) mmol/L Carbon Dioxide (22-32) mmol/L BUN (7-17) mg/dL Creatinine (0.52-1.04) mg/dL Estimated GFR (>60) mL/min BUN/Creatinine Ratio (6-22) Glucose (80-110) mg/dL Lactate (0.7-2.1) mmol/L Calcium (8.4-10.2) mg/dL Magnesium (1.6-2.3) mg/dL Total Bilirubin (0.2-1.3) mg/dL AST (14-36) IU/L ALT (<35) IU/L Alkaline Phosphatase (38-126) U/L Total Creatine Kinase (30-135) U/L CK-MB (CK-2) CK-MB (CK-2) Rel Index Troponin I (0.01-0.034) ng/mL Total Protein (6.3-8.2) g/dL Albumin (3.5-5.0) g/dL Globulin (1.7-4.1) g/dL Albumin/Globulin Ratio (1.0-2.8) Lipase (23-300) U/L Urine RBC (0-5/HPF) Urine WBC (0-5/HPF) Ur Squamous Epith Cells (0-5/HPF) Urine Bacteria (None) Urine Mucus (Negative) Ur Culture Indicated? SARS-CoV-2 (PCR) Negative (Negative) 11/18/20 Range/Units 19:40 WBC (4.5-11.0) X10^3/uL RBC (4.0-5.2) X10^6/uL Hgb (12.0-16.0) g/dL Hct (36-46) % MCV (80-100) fL MCH (26-34) PG MCHC (30-36) % RDW (11.6-14.8) % Plt Count (150-400) X10^3/uL Neut % (Auto) (50-75) % Lymph % (Auto) (25-40) % [place] % (Auto) (3-14) % Eos % (Auto) (2-4) % Baso % (Auto) (0-2) % Neut # (Auto) (6010-0772) /uL Lymph # (Auto) (5131-6235) /uL [place] # (Auto) (0-900) /uL Eos # (Auto) (0-450) /uL Baso # (Auto) (0-100) /uL PT (10.1-12.7) SECONDS INR (0.9-1.3) APTT (26.4-36.2) SECONDS Sodium (137-145) mmol/L Potassium (3.4-5.1) mmol/L Chloride (98-107) mmol/L Carbon Dioxide (22-32) mmol/L BUN (7-17) mg/dL Creatinine (0.52-1.04) mg/dL Estimated GFR (>60) mL/min BUN/Creatinine Ratio (6-22) Glucose (80-110) mg/dL Lactate 2.1 (0.7-2.1) mmol/L Calcium (8.4-10.2) mg/dL Magnesium (1.6-2.3) mg/dL Total Bilirubin (0.2-1.3) mg/dL AST (14-36) IU/L ALT (<35) IU/L Alkaline Phosphatase (38-126) U/L Total Creatine Kinase (30-135) U/L CK-MB (CK-2) CK-MB (CK-2) Rel Index Troponin I (0.01-0.034) ng/mL Total Protein (6.3-8.2) g/dL Albumin (3.5-5.0) g/dL Globulin (1.7-4.1) g/dL Albumin/Globulin Ratio (1.0-2.8) Lipase (23-300) U/L Urine RBC (0-5/HPF) Urine WBC (0-5/HPF) Ur Squamous Epith Cells (0-5/HPF) Urine Bacteria (None) Urine Mucus (Negative) Ur Culture Indicated? SARS-CoV-2 (PCR) (Negative) Point of care testing: Urine Dip Bedside Urine Glucose Negative Bedside Urine Bilirubin - Negative Bedside Urine Ketone - Negative Urine Specific [place] 1.030 Bedside Urine Occult Blood + Bedside Urine pH 6 Bedside Urine Protein + 30 Bedside Urine Urobilinogen 1+ 2mg Bedside Urine Nitrite - Negative Bedside Urine Leukocytes ++ [address] scan - abdomen/pelvis: Radiologist's Impression: PROCEDURE: CT ABDOMEN PELVIS W CON INDICATIONS: abdominal pain, elevated LFTs. TECHNIQUE: After the administration of intravenous contrast, 5 mm thick sections acquired from the diaphragm to the symphysis. 5 mm coronal and sagittal reformats were acquired. For radiation dose reduction, the following was used: automated exposure control, adjustment of mA and/or kV according to patient size. COMPARISON: [facility], , ABDOMEN LIMITED, 11/18/2020, 18:06. FINDINGS: Image quality: Reduced by absence of oral contrast.. ABDOMEN: Lung bases: Lung bases are clear. Heart size is normal. Solid organs: Liver is normal in size and enhancement but there is moderate intrahepatic biliary distension.. Gallbladder is mildly distended as noted during ultrasound scanning earlier today, and there are 2 small calcified gallstones within the gallbladder lumen that are nonobstructive. The common bile duct extends inferiorly towards the duodenal lumen, but is impinged upon by a partially calcified pancreatic head mass which measures up to 4.0 cm AP and 3.9 cm transverse. The common duct itself measures up to 1.6 cm. Partially calcified adjacent lymph nodes are noted just at the midline anterior to the aorta level, mid renal anatomic localization. There may be noncalcified nodes extending anteriorly towards the ligament of Treitz, but these may represent unopacified bowel loops given the absence of oral contrast. A small calcified lymph node lies immediately anterior to the inferior vena cava seen on series 2, image 25. The epicenter of the pancreatic mass is series 2, image 31. Biliary system is non dilated. Pancreas enhances abnormally from the pancreatic head mass leftward, hypoenhancing, with an appearance of generalized pancreatic body and tail atrophy.. Spleen is normal in size and enhancement. No adrenal nodules. Kidneys demonstrate normal size and enhancement, without hydronephrosis. Peritoneum and bowel: Bowel loops demonstrate normal wall thickness and caliber. No free fluid or air. Nodes and vessels: No retroperitoneal or mesenteric adenopathy by size criteria. Aorta and inferior vena cava are normal in size. Miscellaneous: No ventral hernias. PELVIS: Genitourinary: Bladder wall thickness is normal. Miscellaneous: No inguinal hernias or adenopathy. Bones: No suspicious bony lesions. No vertebral body compression fractures. IMPRESSION: Abnormal distension of the common bile duct is secondary to a pancreatic head mass with internal calcifications. Several small lymph nodes contain calcifications also immediately adjacent. What may be unopacified small bowel loops extend forward from the mass area to the ligament of Treitz area, and the absence of oral contrast disallows differentiating between unopacified bowel loops and noncalcified lymph nodes in that area. Intrahepatic biliary distension is present, associated with the obstructive influence by the pancreatic head mass. The pancreatic parenchyma is relatively atrophic from the pancreatic head mass area leftward. Dictated by: Rick Alvarenga M.D. on 11/18/2020 at 19:13 US - abdomen: Radiologist's Impression: PROCEDURE: US ABDOMEN LIMITED INDICATIONS: RIGHT UPPER QUADRANT PAIN TECHNIQUE: Real-time focused scanning was performed of the abdomen, with image documentation. COMPARISON: CT KUB 12/16/18. FINDINGS: The liver is normal in size and echotexture, and demonstrates no intrahepatic biliary distension. The gallbladder contains stones measuring approximately 8 mm in diameter, and the gallbladder is abnormally enlarged at 2.8 x 3.4 x 8.2 cm. The common hepatic duct is abnormally dilated at 10.1 cm and the common bile duct more distally measures 13.9 cm. Pancreas is poorly visualized due to bowel gas. IMPRESSION: Gallstones within the gallbladder lumen. Abnormal biliary ductal distension. MR cholangiogram may be warranted for accurate assessment of distal common duct stone. Dictated by: Rick Alvarenga M.D. on 11/18/2020 at 18:44 ECG Data Attestation: I personally reviewed and interpreted this ECG as follows: Prior ECG tracings: not available for review Interpretation: Normal sinus rhythm rate [address] changes MDM Narrative Medical decision making narrative: Patient has elevated lipase and bilirubin concern for choledocholithiasis. Ultrasound does show dilated common bile duct at 13.9 at its maximum with golf. She is afebrile without leukocytosis but does have elevated lactic acid she is given Zosyn empirically. She is followed at [facility] for her pancreatic cancer 2009-Dr. Scott hospitalist at [place] happily accepts patient for transfer [id number] Dr. Gloria has been updated patient's symptoms test results and agrees with admission to hospitalist Discharge Plan Departure Patient Disposition: [facility] Clinical Impression: Choledocholithiasis Prescriptions: No Action atorvastatin 40 mg tablet 40 mg PO DAILY RF: 0 lisinopril 20 mg Tablet 20 mg RF: 0 sertraline 100 mg Tablet 100 mg PO DAILY RF: 0 diphenoxylate-atropine 2.5-0.025 mg tablet RF: 0 omeprazole 20 mg capsule,delayed release(DR/EC) 40 mg PO BID RF: 0 hydrochlorothiazide 25 mg tablet 25 mg RF: 0 insulin aspart U-100 [Novolog Flexpen U-100 Insulin] 100 unit/mL (3 mL) insulin pen SUBCUT RF: 0 insulin aspart U-100 100 unit/mL (3 mL) insulin pen SUBCUT RF: 0 solifenacin 10 mg tablet 10 mg PO RF: 0 cholecalciferol (vitamin D3) 1,250 mcg (50,000 unit) Tablet 1,250 mcg PO QWEEK RF: 0 Referrals: Tammie Baum MD [Primary Care Provider] -
[2020-11-18 19:00] LABS: Add Manual Diff / Slide Review NO; Basophils Absolute Auto 0 /uL (0-100); Basophils Percent Auto 0.1 % (0-2); Eosinophils Absolute Auto 0 /uL (0-450); Eosinophils Percent Auto 0.1 % (2-4); Hematocrit 39.3 % (36-46); Hemoglobin 13.1 g/dL (12.0-16.0); INR 1.1 (0.9-1.3); Lymphocytes Absolute Auto 200 /uL (1100-4500); Lymphocytes Percent Auto 2.3 % (25-40); Mean Corpuscular HGB Conc 33.4 % (30-36); Mean Corpuscular Hemoglobin 31.5 PG (26-34); Mean Corpuscular Volume 94.5 fL (80-100); Monocytes Absolute Auto 200 /uL (0-900); Monocytes Percent Auto 1.6 % (3-14); Neutrophils Absolute Auto 10000 /uL (1500-7000); Neutrophils Percent Auto 95.9 % (50-75); Platelet Count 176 X10^3/uL (150-400); Prothrombin Time 12.7 SECONDS (10.1-12.7); Red Blood Cell Count 4.16 X10^6/uL (4.0-5.2); Red Cell Distribution Width 14.4 % (11.6-14.8); White Blood Cell Count 10.4 X10^3/uL (4.5-11.0)
[2020-11-18 19:03] LABS: PTT Partial Thromboplastin Tim 29 SECONDS (26.4-36.2)
[2020-11-18 19:10] LABS: COVID19 - ADMIT (NP swab/PCR) Negative (Negative)
[2020-11-18 19:24] LABS: Reflexed Lactate in 2 Hours Y
[2020-11-18 20:00] LABS: Lactate 2HR (Lactic Acid Rflx) 2.1 mmol/L (0.7-2.1)
[2020-11-18] MEDS: PIPERACILLIN/TAZO 4.5 GM in SODIUM CHLORIDE 0.9% 100 ML IV (21:16)
== END 2020-11-18 22:24 | disposition short-term general hospital (02) ==
PROVIDERS: Emergency Medicine; Emergency Provider Emergency Medicine; PCP Family Medicine
DX: K80.50 Calculus of bile duct without cholangitis or cholecystitis without obstruction (principal); R10.9 Unspecified abdominal pain; Z20.822 Contact with and (suspected) exposure to COVID-19
CPT/HCPCS: 36415; 71045; 74177; 76705; 80053; 81003; 81015; 82550; 83605; 83690; 83735; 84484; 85025; 85610; 85730; 87040; 87077; 87086; 87186; 87635; 93005; 96361; 96365; 96375; 96376; 99284; C9803; J2270; J2405; J2543; Q9967

== ENCOUNTER → 2021-02-14 11:54 | Outpatient (CLI) | payer MEDICARE, OTHER, SELFPAY ==
--- NOTE | 2021-02-14 13:36 | DI.MRI.S_ITS ---
PROCEDURE: MR ABDOMEN WO CON INDICATIONS: Abnormal levels of other serum enzymes TECHNIQUE: Coronal HASTE through the abdomen, axial 2-D FLASH in- and [id number], and breath-hold T2 FSE with fat saturation through the biliary system and pancreas. Oblique coronal and axial thin-slice HASTE, radial thick-slab HASTE centered on the extrahepatic bile ducts. Intravenous secretin: Not requested. COMPARISON: [facility], CT, CT ABDOMEN PELVIS W CON, 11/18/2020, 18:47. FINDINGS: Image quality: Excellent. Pancreas and biliary system: Mild dilatation of the left lobe intrahepatic bile ducts centrally. There appear to be a few strictures in the segment III duct. The gallbladder is surgically absent. The extrahepatic common duct is smoothly prominent measuring about 9 mm. It tapers gradually in the pancreatic head. No intrinsic filling defects are present. Body and tail of the pancreas are diminutive demonstrating occasional cystic prominence of few side branch ducts. The pancreatic head and uncinate process are enlarged secondary to a heterogeneous solid mass with central cystic components/dilated ducts measuring about 3.4 x 3.6 x 3.8 cm. . The main pancreatic duct in the neck is normal caliber at 3 mm. There is one short segment of pancreatic duct which appears to be slightly compressed by the mass, however the distal pancreatic duct near the ampulla is seen and is of normal caliber. Other solid organs: Liver is normal in size. Spleen is normal in size. No adrenal nodules. Moderate irregular cortical thinning of the left kidney. Cortical cyst in the lower pole. Mild dilatation of the left extrarenal pelvis and proximal ureter. Right kidney demonstrates mild overall cortical thinning and slight extrarenal prominence. Nodes and vessels: No retroperitoneal or mesenteric adenopathy by size criteria. Aorta and inferior vena cava are normal in size. Bowel and peritoneum: Unenhanced bowel loops are normal in caliber. No free fluid. Lung bases: No basal pleural effusions. Heart size is normal. Bones and soft tissues: No ventral hernias. Bone marrow is of normal overall signal. IMPRESSION: 1. Mild intra and extrahepatic biliary prominence, within the rim of normal post cholecystectomy. 2. Mild irregular left intrahepatic ductal dilatation with stricture in may be scarring secondary to history of cholangitis. 3. Heterogeneous solid pancreatic head and uncinate process mass without significant obstruction of the pancreatic duct. 4. Mild left hydroureteronephrosis and moderate cortical atrophy. Dictated by: Hannah Geller M.D. on 02/14/2021 at 14:44 Approved by: Hannah Geller M.D. on 02/14/2021 at 15:03
== END ==
PROVIDERS: PCP Internal Medicine; Referring Provider Internal Medicine; Visit Provider Internal Medicine
DX: R74.8 Abnormal levels of other serum enzymes (principal); K86.9 Disease of pancreas, unspecified; K83.8 Other specified diseases of biliary tract; N13.30 Unspecified hydronephrosis; Z90.49 Acquired absence of other specified parts of digestive tract
CPT/HCPCS: 74181

== ENCOUNTER 2023-11-19 21:23 | Emergency (ER) | payer MEDICARE, OTHER, SELFPAY ==
[2023-11-19] VITALS (7 sets, daily range): BP systolic 135–171; BP diastolic 60–69; PULSE 64–78; RESP 16–44; TEMP 36.3; O2SAT 98–99; BMI 35.2
[2023-11-19 22:06] LABS: Add Manual Diff / Slide Review NO; Basophils Absolute Auto 0 /uL (0-100); Basophils Percent Auto 0.5 % (0-2); Eosinophils Absolute Auto 100 /uL (0-450); Eosinophils Percent Auto 0.9 % (2-4); Hematocrit 35.3 % (36-46); Hemoglobin 11.8 g/dL (12.0-16.0); Lymphocytes Absolute Auto 600 /uL (1100-4500); Lymphocytes Percent Auto 10.5 % (25-40); Mean Corpuscular HGB Conc 33.5 % (30-36); Mean Corpuscular Hemoglobin 31.7 PG (26-34); Mean Corpuscular Volume 94.8 fL (80-100); Monocytes Absolute Auto 400 /uL (0-900); Monocytes Percent Auto 8.1 % (3-14); Neutrophils Absolute Auto 4300 /uL (1500-7000); Platelet Count 159 X10^3/uL (150-400); Red Blood Cell Count 3.72 X10^6/uL (4.0-5.2); Red Cell Distribution Width 14.3 % (11.6-14.8); White Blood Cell Count 5.4 X10^3/uL (4.5-11.0)
[2023-11-19 22:20] LABS: Alanine Aminotransferase 37 IU/L (<35); Albumin 3.6 g/dL (3.5-5.0); Albumin Globulin Ratio 1.4 (1.0-2.8); Alkaline Phosphatase 133 U/L (38-126); Aspartate Aminotransferase 46 IU/L (14-36); BUN Creatinine Ratio 21.2 (6-22); Bilirubin Total 0.5 mg/dL (0.2-1.3); Blood Urea Nitrogen 25 mg/dL (7-17); Calcium 8.2 mg/dL (8.4-10.2); Carbon Dioxide 29 mmol/L (22-32); Chloride 103 mmol/L (98-107); Estimated Glomerular Filt Rate 46 mL/min (>60); Globulin 2.5 g/dL (1.7-4.1); Glucose 71 mg/dL (80-110); HEMOLYSIS < 15 (0-50); Sodium 136 mmol/L (137-145); Total Protein 6.1 g/dL (6.3-8.2)
--- NOTE | 2023-11-19 22:28 | ED_ITS ---
HPI - Recheck/Abnormal Lab/Rx General Chief Complaint: Recheck/Abnormal Lab/Rx Stated Complaint: low blood sugar Time Seen by Provider: 11/19/23 21:48 Source: family Mode of arrival: Wheelchair History of Present Illness HPI narrative: 83-year-old female with history of insulin-dependent diabetes, pancreas tumor (stable for years), presents for low blood glucose at home. Family states that patient seemed to be ?loopy? at dinner but they did not think very much of it. While watching TV later in the evening she continued to seem out of it and so they checked her blood sugar. They found that it was in the low 50s. They gave her glucose tablets and fed her additional snacks, but when they rechecked it it was only 69. She continued to seem somewhat loopy and they decided to bring her in for evaluation. Patient states she took her usual amount of insulin today. She has been on a stable dose of insulin for many years. Family states that a similar incident happened several months ago where the patient's son came to check on her and she was slumped over in the bed with low glucose. They were able to correct her sugars quickly, however, and did not bring her in for evaluation at that time. Related Data Home Medications Medication Instructions Recorded Confirmed atorvastatin 40 mg tablet 40 mg PO DAILY 11/18/20 11/18/20 cholecalciferol (vitamin D3) 1,250 1,250 mcg PO QWEEK 11/18/20 11/18/20 mcg (50,000 unit) tablet diphenoxylate-atropine 2.5 tab 11/18/20 11/18/20 mg-0.025 mg tablet hydrochlorothiazide 25 mg tablet 25 mg 11/18/20 insulin aspart U-100 100 unit/mL unit SUBCUT 11/18/20 11/18/20 (3 mL) subcutaneous pen insulin aspart U-100 100 unit/mL unit SUBCUT 11/18/20 11/18/20 (3 mL) subcutaneous pen (Novolog FlexPen U-100 Insulin aspart) lisinopril 20 mg tablet 20 mg 11/18/20 omeprazole 20 mg capsule,delayed 40 mg PO BID 11/18/20 11/18/20 release sertraline 100 mg tablet 100 mg PO DAILY 11/18/20 11/18/20 solifenacin 10 mg tablet 10 mg PO 11/18/20 Previous Rx's Medication Instructions Recorded cefpodoxime 200 mg tablet 200 mg PO Q12H #14 tabs 11/20/23 Allergies Allergy/AdvReac Type Severity Reaction Status Date / Time No Known Drug Allergies Allergy Verified 11/18/20 16:24 Review of Systems Review of Systems Narrative: See HPI Patient History Medical History Kidney stone on left side Pancreatic cancer Social History Smoking Status: Former smoker Smoking Status: Former smoker alcohol intake frequency: a few times a month Substance Use Type: does not use Exam Initial Vital Signs Initial Vital Signs: Vital Signs Temperature 97.4 F L 11/19/23 21:30 Pulse Rate 74 11/19/23 21:30 Respiratory Rate 16 11/19/23 21:30 Blood Pressure 135/62 11/19/23 21:30 Pulse Oximetry 99 11/19/23 21:30 Oxygen Delivery Method Room Air 11/19/23 21:30 Const: Awake, alert, no acute distress, nontoxic appearing Cardiac: regular rate, regular rhythm RESP: unlabored, clear bilaterally, no wheezing GI: Soft, nontender, nondistended, no rebound, no guarding Skin: Warm, Dry, intact, no rashes Neuro: AO x3, CN II-XII grossly intact, moves all extremities Course Orders Ordered: ED Orders 11/19/23 21:57 CBC Auto Diff [Complete Blood Count AUTO DIFF] Stat CMP [Comprehensive Metabolic Panel] Stat 11/19/23 22:36 UA Complete [Urinalysis and Microscopic] Stat Urine Culture Stat Vital Signs Vital signs: Vital Signs - 8 hr 11/19/23 22:00 11/19/23 22:00 11/19/23 22:40 Pulse Rate 68 78 Respiratory Rate 16 44 H Blood Pressure 143/63 H Pulse Oximetry 99 98 Oxygen Delivery Method Room Air 11/19/23 23:00 11/19/23 23:00 11/19/23 23:30 Pulse Rate 64 Respiratory Rate 16 Blood Pressure 139/60 152/67 H Pulse Oximetry 98 Oxygen Delivery Method 11/19/23 23:30 11/20/23 00:00 11/20/23 00:00 Pulse Rate 66 67 Respiratory Rate 17 17 Blood Pressure 156/65 H Pulse Oximetry 98 97 Oxygen Delivery Method 11/20/23 00:30 11/20/23 00:30 11/20/23 01:00 Pulse Rate 68 69 Respiratory Rate Blood Pressure 162/70 H Pulse Oximetry 97 98 Oxygen Delivery Method 11/20/23 01:00 11/20/23 01:10 Pulse Rate 70 Respiratory Rate 16 Blood Pressure 175/71 H 175/71 H Pulse Oximetry 97 Oxygen Delivery Method Room Air MDM - Recheck/Abnormal Lab/Rx Differential Diagnosis Differential diagnosis: Likely encounter for medication refill, encounter for wound recheck and encounter for recheck of burn Lab Data 11/19/23 21:57 11/19/23 21:57 Labs: Lab Results 11/19/23 11/19/23 Range/Units 21:57 22:36 WBC 5.4 (4.5-11.0) X10^3/uL RBC 3.72 L (4.0-5.2) X10^6/uL Hgb 11.8 L (12.0-16.0) g/dL Hct 35.3 L (36-46) % MCV 94.8 (80-100) fL MCH 31.7 (26-34) PG MCHC 33.5 (30-36) % RDW 14.3 (11.6-14.8) % Plt Count 159 (150-400) X10^3/uL Neut % (Auto) 80.0 H (50-75) % Lymph % (Auto) 10.5 L (25-40) % [place] % (Auto) 8.1 (3-14) % Eos % (Auto) 0.9 L (2-4) % Baso % (Auto) 0.5 (0-2) % Neut # (Auto) 4300 (5138-8278) /uL Lymph # (Auto) 600 L (1561-8400) /uL [place] # (Auto) 400 (0-900) /uL Eos # (Auto) 100 (0-450) /uL Baso # (Auto) 0 (0-100) /uL Sodium 136 L (137-145) mmol/L Potassium 4.0 (3.4-5.1) mmol/L Chloride 103 (98-107) mmol/L Carbon Dioxide 29 (22-32) mmol/L BUN 25 H (7-17) mg/dL Creatinine 1.18 H (0.52-1.04) mg/dL Estimated GFR 46 L (>60) mL/min BUN/Creatinine Ratio 21.2 (6-22) Glucose 71 L (80-110) mg/dL Calcium 8.2 L (8.4-10.2) mg/dL Total Bilirubin 0.5 (0.2-1.3) mg/dL AST 46 H (14-36) IU/L ALT 37 H (<35) IU/L Alkaline Phosphatase 133 H (38-126) U/L Total Protein 6.1 L (6.3-8.2) g/dL Albumin 3.6 (3.5-5.0) g/dL Globulin 2.5 (1.7-4.1) g/dL Albumin/Globulin Ratio 1.4 (1.0-2.8) Urine Color Yellow Urine Appearance Clear Urine pH 6.0 (4.5-8.0) Ur Specific [place] <=1.005 (1.000-1.035) Urine Protein Negative (Negative) Urine Glucose (UA) Negative (Negative) g/dL Urine Ketones Negative (NEGATIVE) Urine Occult Blood Negative (Negative) Urine Nitrate Negative (Negative) Urine Bilirubin Negative (NEGATIVE) Urine Urobilinogen 0.2 (0.2) E.U./dL Ur Leukocyte Esterase 1+ H (NEGATIVE) Urine RBC None seen (0-5/HPF) Urine WBC 5-10/hpf H (0-5/HPF) Ur Squamous Epith Cells 1-5 /hpf (0-5/HPF) Urine Bacteria Few (2-10) H (None) Ur Culture Indicated? Specimen cultured Vol Urine Centrifuged 10ml (spun) Point of Care Testing Glucose POC 105 MDM Narrative Medical decision making narrative: Hypoglycemia at home leading to altered mental status. Patient is currently awake, alert, oriented, resting comfortably in bed, back to her baseline mental status confirmed by daughter at bedside. Patient states that she ate much less than usual today, starting by accidentally skipping breakfast in order to make a morning appointment, which she did not tell her family about until just now. This is quite likely the source of her hypoglycemia. Since she has been in the emergency department her glucoses has been stable. We will order blood work, urinalysis, and we will monitor glucoses. Patient has had multiple glucose checks that are within normal limits. She has no additional complaints and continues to be at her baseline mental status. Laboratory work shows WBC count 5.4, hemoglobin 11.8, platelets a 159, sodium 136, potassium 4.0, creatinine 1.18 (baseline). Daughter requested that a urinalysis be obtained because patient has a history of urinary tract infections and has begun to complain of burning with urination and frequency. Urinalysis shows WBCs and bacteria present with leukocyte esterase and culture sent to lab. Last culture on record is from 2020 that showed pansensitive E coli. Family states they are comfortable taking patient home and we will continue to monitor the patient for signs of low glucose. I recommended talking with the patient's primary care physician about potentially adjusting her insulin regimen since this is the 2nd event in a short amount of time where patient's blood glucoses have dropped. Antibiotic sent to pharmacy of choice. Discharge Plan Departure Patient Disposition: Home Clinical Impression: Hypoglycemia, Acute UTI Instructions: DI for Urinary Tract Infection (UTI), DI for Hypoglycemia Activity Restrictions/Additional Instructions: Follow up with your doctor as you may need your insulin readjusted. Continue to monitor your glucoses closely and make sure that you eat meals to avoid drops in your glucose. Antibiotics have been sent to your pharmacy, please take them as prescribed and follow up with your primary care physician. Prescriptions: New cefpodoxime 200 mg tablet 200 mg PO Q12H Qty: 14 0RF Rx Instructions: must administer with a meal/food No Action atorvastatin 40 mg tablet 40 mg PO DAILY lisinopril 20 mg Tablet 20 mg sertraline 100 mg Tablet 100 mg PO DAILY diphenoxylate-atropine 2.5-0.025 mg tablet Patient Comments: TAKE TWO TABLETS BY MOUTH EVERY FOUR HOURS NEEDED FOR DIARRHEA, UPTO 8 TABLETS PER DAY omeprazole 20 mg capsule,delayed release(DR/EC) 40 mg PO BID hydrochlorothiazide 25 mg tablet 25 mg insulin aspart U-100 [Novolog FlexPen U-100 Insulin] 100 unit/mL (3 mL) insulin pen SUBCUT insulin aspart U-100 100 unit/mL (3 mL) insulin pen SUBCUT solifenacin 10 mg tablet 10 mg PO cholecalciferol (vitamin D3) 1,250 mcg (50,000 unit) Tablet 1,250 mcg PO QWEEK Referrals: Juan Ren MD [Primary Care Provider] - Stand Alone Forms: Patient Portal/API
--- NOTE | 2023-11-19 22:33 | PC.NURSE ---
Pt given 4 oz juice and 2 packets of bianka crackers
--- NOTE | 2023-11-19 22:45 | PC.NURSE ---
4 oz oj, cheese given at this time
[2023-11-19 22:57] LABS: Appearance Urine UA CLEAR; Bilirubin Urine UA NEGATIVE (NEGATIVE); Color Urine UA YELLOW; Glucose Urine UA NEGATIVE (Negative); Ketones Urine UA NEGATIVE (NEGATIVE); Leukocyte Esterase Urine UA 1+ (NEGATIVE); Nitrite Urine UA NEGATIVE (Negative); Occult Blood Urine UA NEGATIVE (Negative); Protein Urine UA NEGATIVE (Negative); Specific Gravity Urine UA <=1.005 (1.000-1.035); Urobilinogen Urine UA 0.2 E.U./dL (0.2)
[2023-11-19 23:04] LABS: Bacteria Urine Few (2-10); RBC Urine None Seen (0-5/HPF); Squamous Epithelial Cell Urine 1-5 /HPF (0-5/HPF); Urine Volume 10mL (spun); WBC Urine 5-10/HPF (0-5/HPF)
[2023-11-19 23:05] LABS: Culture Indicated Urine Specimen Cultured
[2023-11-20] VITALS: BP 156/65; PULSE 67; RESP 17; O2SAT 97
[2023-11-20 00:30] VITALS: BP 162/70; PULSE 68; O2SAT 97
[2023-11-20 01:00] VITALS: BP 175/71; PULSE 69; O2SAT 98
[2023-11-20 01:10] VITALS: BP 175/71; PULSE 70; RESP 16; O2SAT 97
== END 2023-11-20 01:13 | disposition home or self-care (01) ==
PROVIDERS: Emergency Provider Emergency Medicine; PCP Internal Medicine
DX: E16.2 Hypoglycemia, unspecified (principal); N39.0 Urinary tract infection, site not specified
CPT/HCPCS: 36415; 80053; 81001; 82962; 85025; 87086; 99283; 99284

== ENCOUNTER 2024-04-01 08:27 | Emergency (ER) | payer MEDICARE, OTHER, SELFPAY ==
[2024-04-01 08:47] VITALS: BP 151/67; PULSE 81; RESP 17; TEMP 36.9; O2SAT 95
--- NOTE | 2024-04-01 09:00 | ED.BACK ---
HPI - Back Pain/Injury General Chief Complaint: Back Pain/Injury Stated Complaint: Back Pain, [place] a pop Time Seen by Provider: 04/01/24 08:50 Source: patient History of Present Illness HPI Narrative: Patient is a 83-year-old female history of pancreatic cancer which has been stable for 60 year she gets a shot every few weeks, reports that she is followed closely at [facility] and she gets a scan every 3 months, she also has history of insulin-dependent diabetes and hypertension presenting today with back pain. She reports 3 days ago she twisted and turned heard a pop and has felt right-sided back pain ever since. She has been taking some arthritis Tylenol pain medication without significant relief. It is on her right side radiating down to her right leg. She has needed a walker to get around instead of her usual cane. She does have some urine and stool incontinence which is not new for her. She was previously diagnosed with a UTI in November. She denies any fever or chills. Having any other current symptoms Related Data Home Medications Medication Instructions Recorded Confirmed atorvastatin 40 mg tablet 40 mg PO DAILY 11/18/20 11/18/20 cholecalciferol (vitamin D3) 1,250 1,250 mcg PO QWEEK 11/18/20 11/18/20 mcg (50,000 unit) tablet diphenoxylate-atropine 2.5 tab 11/18/20 11/18/20 mg-0.025 mg tablet hydrochlorothiazide 25 mg tablet 25 mg 11/18/20 insulin aspart U-100 100 unit/mL unit SUBCUT 11/18/20 11/18/20 (3 mL) subcutaneous pen insulin aspart U-100 100 unit/mL unit SUBCUT 11/18/20 11/18/20 (3 mL) subcutaneous pen (Novolog FlexPen U-100 Insulin aspart) lisinopril 20 mg tablet 20 mg 11/18/20 omeprazole 20 mg capsule,delayed 40 mg PO BID 11/18/20 11/18/20 release sertraline 100 mg tablet 100 mg PO DAILY 11/18/20 11/18/20 solifenacin 10 mg tablet 10 mg PO 11/18/20 Previous Rx's Medication Instructions Recorded cefpodoxime 200 mg tablet 200 mg PO Q12H #14 tabs 11/20/23 acetaminophen 300 mg-codeine 15 mg 1 tab PO QID PRN pain #14 tabs 04/01/24 tablet Allergies Allergy/AdvReac Type Severity Reaction Status Date / Time No Known Drug Allergies Allergy Verified 11/18/20 16:24 Patient History Medical History Kidney stone on left side Pancreatic cancer Social History Smoking Status: Former smoker Smoking Status: Former smoker tobacco type: cigarettes alcohol intake frequency: a few times a month Substance Use Type: does not use Exam Initial Vital Signs Initial Vital Signs: Vital Signs Temperature 98.4 F 04/01/24 08:47 Pulse Rate 81 04/01/24 08:47 Respiratory Rate 17 04/01/24 08:47 Blood Pressure 151/67 H 04/01/24 08:47 Pulse Oximetry 95 04/01/24 08:47 Oxygen Delivery Method Room Air 04/01/24 08:47 GENERAL: Alert pleasant 83-year-old female HEENT: Head atraumatic,EOMI, pupils reactive, face symmetric, moist mucous membranes CARDIOVASCULAR: Regular rate and rhythm without murmurs, rubs or gallops. RESPIRATORY: Breath sounds equal bilaterally, no wheezes rales or rhonchi. ABDOMEN: Soft, nontender. Normoactive bowel sounds all 4 quadrants. No guarding or rebound. BACK: No vertebral tenderness no step-offs right paraspinal tenderness and flank pain reproducible with palpation : No CVA tenderness EXTREMITIES: Normal range of motion, no clubbing or edema. Neurovascularly intact NEUROLOGICAL: Alert and oriented x4. Decreased soft touch sensation of the right versus the left, both extremities are warm SKIN: Warm, dry, no laceration, no petechiae, no rashes or lesions. Course Orders Ordered: ED Orders 04/01/24 09:29 Urine Microscopic Stat 04/01/24 09:37 CT abdomen pelvis w con Stat 04/01/24 09:50 CBC Auto Diff [Complete Blood Count AUTO DIFF] Stat CMP [Comprehensive Metabolic Panel] Stat Lipase Stat Discontinued Medications Sodium Chloride (Normal Saline 0.9%) 1,000 mls @ 1,000 mls/hr IV BOLUS ONE Stop: 04/01/24 11:51 Last Admin: 04/01/24 11:07 Dose: 1,000 mls/hr Documented By: YISSEL Ketorolac Tromethamine (Ketorolac 30 Mg/Ml Vial) 30 mg IM NOW ONE Stop: 04/01/24 09:00 Last Admin: 04/01/24 09:10 Dose: 30 mg Documented By: YISSEL Ondansetron HCl (Ondansetron 4 Mg/2 Ml Inj) 4 mg IV NOW PRN PRN Reason: Nausea And Vomiting Ondansetron HCl (Ondansetron 4 Mg Odt) 4 mg SL NOW PRN PRN Reason: Nausea And Vomiting Vital Signs Vital signs: Vital Signs - 8 hr 04/01/24 08:47 04/01/24 12:20 Temperature 98.4 F Pulse Rate 81 58 L Respiratory Rate 17 14 Blood Pressure 151/67 H 159/109 H Pulse Oximetry 95 98 Oxygen Delivery Method Room Air Room Air MDM - Back Pain/Injury Lab Data 04/01/24 09:50 04/01/24 09:50 Labs: Lab Results 04/01/24 04/01/24 Range/Units 09:29 09:50 WBC 3.6 L (4.5-11.0) X10^3/uL RBC 3.66 L (4.0-5.2) X10^6/uL Hgb 11.9 L (12.0-16.0) g/dL Hct 36.0 (36-46) % MCV 98.4 (80-100) fL MCH 32.6 (26-34) PG MCHC 33.2 (30-36) % RDW 13.6 (11.6-14.8) % Plt Count 127 L (150-400) X10^3/uL Neut % (Auto) 69.9 (50-75) % Lymph % (Auto) 19.8 L (25-40) % Door % (Auto) 6.9 (3-14) % Eos % (Auto) 2.8 (2-4) % Baso % (Auto) 0.6 (0-2) % Neut # (Auto) 2500 (0213-6956) /uL Lymph # (Auto) 700 L (8492-0442) /uL Door # (Auto) 200 (0-900) /uL Eos # (Auto) 100 (0-450) /uL Baso # (Auto) 0 (0-100) /uL Sodium 131 L (137-145) mmol/L Potassium 5.4 H (3.4-5.1) mmol/L Chloride 98 (98-107) mmol/L Carbon Dioxide 27 (22-32) mmol/L BUN 35 H (7-17) mg/dL Creatinine 1.47 H (0.52-1.04) mg/dL Estimated GFR 35 L (>60) mL/min BUN/Creatinine Ratio 23.8 H (6-22) Glucose 316 H (80-110) mg/dL Calcium 8.4 (8.4-10.2) mg/dL Total Bilirubin 0.8 (0.2-1.3) mg/dL AST 88 H (14-36) IU/L ALT 69 H (<35) IU/L Alkaline Phosphatase 170 H (38-126) U/L Total Protein 5.7 L (6.3-8.2) g/dL Albumin 3.3 L (3.5-5.0) g/dL Globulin 2.4 (1.7-4.1) g/dL Albumin/Globulin Ratio 1.4 (1.0-2.8) Lipase 44 (23-300) U/L Urine RBC None seen (0-5/HPF) Urine WBC 0-1/hpf (0-5/HPF) Ur Squamous Epith Cells 0-1 /hpf (0-5/HPF) Urine Bacteria Few (2-10) H (None) Ur Culture Indicated? Cult not indicated Vol Urine Centrifuged 10ml (spun) Urine Dip Bedside Urine Glucose Negative Bedside Urine Bilirubin - Negative Bedside Urine Ketone - Negative Urine Specific [place] 1.015 Bedside Urine Occult Blood - Negative Bedside Urine pH 6.0 Bedside Urine Protein - Negative Bedside Urine Urobilinogen - Negative Bedside Urine Nitrite - Negative Bedside Urine Leukocytes +/- [address] scan - abdomen/pelvis: Radiologist's Impression: PROCEDURE: CT ABDOMEN PELVIS W CON INDICATIONS: Right flank pain hx pancreatic cancer, per notes TECHNIQUE: After the administration of intravenous contrast, axial sections acquired from the lung bases to the pubic symphysis. Coronal and sagittal reformats were performed. For radiation dose reduction, the following was used: automated exposure control, adjustment of mA and/or kV according to patient size. COMPARISON: [facility], CT, CT ABDOMEN PELVIS W CON, 11/18/2020, 18:47. FINDINGS: Image quality: Diagnostic. There is increased heterogeneous subcutaneous edema right anterolateral abdomen (axial images 26-35 of 104) in an area spanning approximately 6.5 cm transverse by 1.6 cm AP by 4.2 cm cc maximal dimensions. Commonly this may represent ecchymosis or sequela of subcutaneous injections. Cellulitis or rarely soft tissue mass could have a similar appearance. New mild right hydronephrosis, hydroureter with possible 1 mm distal right ureteral calculus axial image 65/104. Otherwise findings may be related to passed stone, urinary tract infection or other process. 2 mm non-obstructing right renal calculus is unchanged. The left ureter is normal. Previously reported pancreatic head mass suspected neoplasm which on the prior exam measured approximately 4.0 x 3.9 by 3.7 cm is minimally increased now measures approximately 4.4 cm AP by 4.2 cm transverse by 4.1 cm cc maximal dimensions. Associated calcifications mildly increased. Previously noted intra and extrahepatic biliary ductal dilatation is decreased. The common bile duct now measures up to 8 mm within normal limits for patient's age. Approximately 7 cm periumbilical anterior midline abdominal wall hernia containing fat is relatively unchanged. Mild soft tissue subcutaneous edema and edema in the gluteus muscles and just posterior to the ischial tuberosities is non-specific may be related to cellulitis or decubitus ulcers left greater than right without focal loculated fluid collection to suggest abscess. Moderate pelvic floor prolapse and nonspecific soft tissue edema of the distal rectum/anus commonly related to proctitis, hemorrhoids or other anal rectal lesion mildly increased. Severe calcifications of the abdominal aorta without CT evidence of aneurysm or dissection. Mild nonspecific wall thickening of the stomach and duodenum some of which commonly artifact from partial nondistention although gastritis, duodenitis could have a similar appearance increased. Surgical clips status post cholecystectomy. Moderate degenerate changes lower thoracic, lumbar spine most notably at L4-5 with suspected severe central stenosis progressed. No CT evidence of acute fracture or subluxation. Moderate degenerate changes bilateral hips progressed. Lower Chest: No significant findings. ABDOMEN: Liver: Micronodular contour of the liver with hypertrophied caudate lobe suggests early findings of cirrhotic change progressed. Spleen: Size is within normal limits. Adrenal Glands: No adrenal nodules. Bowel: Normal colonic caliber, without wall thickening, no obstruction. Peritoneum: No abnormal intraperitoneal fluid. No free air. Abdominal Nodes: No retroperitoneal or mesenteric adenopathy by size criteria. Vessels: Aorta and inferior vena cava are normal in size. PELVIS: Pelvic Organs: Unremarkable. Bladder: No bladder wall thickening, accounting for underdistention. IMPRESSION: Increased subcutaneous edema right anterolateral abdomen as discussed above. New mild right hydronephrosis, hydroureter with possible 1 mm distal right ureteral calculus. Otherwise findings may be related to passed stone, urinary tract infection or other process. 2 mm non-obstructing right renal calculus is unchanged. Previously reported pancreatic head mass suspected neoplasm minimally increased. Previously noted intra and extrahepatic biliary ductal dilatation is decreased. 7 cm periumbilical anterior midline abdominal wall hernia containing fat is unchanged. Mild soft tissue subcutaneous edema and gluteus muscles may be related to cellulitis or decubitus ulcers progressed. Moderate pelvic floor prolapse and soft tissue edema of the distal rectum/anus increased. Mild nonspecific wall thickening of the stomach and duodenum increased. Moderate degenerate changes most notably at L4-5 with severe central stenosis progressed. Micronodular contour of the liver suggests cirrhotic change progressed. Continued follow-up suggested. Dictated by: Lionel Bunch M.D. on 04/01/2024 at 11:04 MDM Narrative Medical decision making narrative: Patient 83-year-old female history of pancreatic cancer which has been stable for years surveillance with frequent CT scans at who fell attempting to get recent CT scan, presents today with back pain. She is tender right flank and paraspinal area not tender over the vertebrae definitely is reproducible radiating down to her right leg. She has given a shot of Toradol for pain Prior CT results reviewed last CT was done on 11/03/2023 which did show a slightly increased pancreatic head from the previous exam along with peripancreatic lymphadenopathy. Blood work has been reviewed WBC 3.6 hemoglobin 11.9 hematocrit 36 platelets 127, sodium 131 potassium 5.4 BUN 35 creatinine 1.47 previously 1.1 glucose 316 bilirubin 0.8 AST 88 ALT 69 alk-phos [address] today shows possible 1 mm distal right ureteral stone which correlates with side of pain in possibly if recent passed stone. She also has a 2 mm nonobstructing right renal calculus. Also shows continued increased pancreatic mass previously 4 x 0 x 3.9 x 3.7cm now 4.4 x 4.2 x 4.1cm Patient's pain is more controlled she also received a L of fluid. Discussed with her that mass is enlarging recommend she follow up with Oncology. Also I suspect right-sided back pain secondary to possible musculoskeletal and right kidney stone. Although it does look like she passed a stone. Urinalysis does not show any evidence of infection and no need for antibiotics. She is previously tolerated Tylenol with codeine and requesting that for pain at home. Discharge Plan Departure Patient Disposition: Home Clinical Impression: Kidney stones, Back strain Instructions: DI for Kidney Stones Activity Restrictions/Additional Instructions: *You have been diagnosed with kidney stone *What to do: At this time you do have a kidney stone which I anticipate you will pass. I think her back pain is combination of kidney stone and musculoskeletal muscle strain. Try heating pad. *Continue to take medications as directed Tylenol with codeine every 6 hours only if needed for severe pain *Follow up with your primary care provider in 2-3 days or call [phone] *Return to ER if you should have increasing pain leg weakness or any new, worsening or concerning symptoms CONTROLLED SUBSTANCE DISCHARGE (Narcotoic/benzodiazepine/Flexeril/Phenergan) 1. You have been prescribed narcotic medications, it does have acetaminophen/Tylenol/paracetamol in it, DO NOT TAKE MORE THAN 4,00mg in 24 hours of Tylenol. TRAMADOL DOES NOT CONTAIN TYLENOL 2. Please understand that we cannot provide further refills of narcotics, benzodiazepines or controlled substances through the ED and her pain management will need to be through your provider. 3. While on these medications you cannot drive or operate heavy machinery. 4. You cannot sign legal documents or perform any duties such as this. 5. As long as you're taking opiate pain medications he should also be taking a stool softener such as Colace, Dulcolax, MiraLAX or prune juice, to help avoid constipation. Prescriptions: New acetaminophen-codeine 300-15 mg tablet 1 tab PO QID PRN (Reason: pain) Qty: 14 0RF No Action atorvastatin 40 mg tablet 40 mg PO DAILY lisinopril 20 mg Tablet 20 mg sertraline 100 mg Tablet 100 mg PO DAILY diphenoxylate-atropine 2.5-0.025 mg tablet Patient Comments: TAKE TWO TABLETS BY MOUTH EVERY FOUR HOURS NEEDED FOR DIARRHEA, UPTO 8 TABLETS PER DAY omeprazole 20 mg capsule,delayed release(DR/EC) 40 mg PO BID hydrochlorothiazide 25 mg tablet 25 mg insulin aspart U-100 [Novolog FlexPen U-100 Insulin] 100 unit/mL (3 mL) insulin pen SUBCUT insulin aspart U-100 100 unit/mL (3 mL) insulin pen SUBCUT solifenacin 10 mg tablet 10 mg PO cholecalciferol (vitamin D3) 1,250 mcg (50,000 unit) Tablet 1,250 mcg PO QWEEK cefpodoxime 200 mg tablet 200 mg PO Q12H Qty: 14 0RF Rx Instructions: must administer with a meal/food Referrals: Juan Ren MD [Primary Care Provider] - Stand Alone Forms: Patient Portal/API
[2024-04-01] MEDS: KETOROLAC 30 MG/ML VIAL IM (09:10)
--- NOTE | 2024-04-01 09:37 | DI.CT.S_ITS ---
PROCEDURE: CT ABDOMEN PELVIS W CON INDICATIONS: Right flank pain hx pancreatic cancer, per notes TECHNIQUE: After the administration of intravenous contrast, axial sections acquired from the lung bases to the pubic symphysis. Coronal and sagittal reformats were performed. For radiation dose reduction, the following was used: automated exposure control, adjustment of mA and/or kV according to patient size. COMPARISON: [facility], CT, CT ABDOMEN PELVIS W CON, 11/18/2020, 18:47. FINDINGS: Image quality: Diagnostic. There is increased heterogeneous subcutaneous edema right anterolateral abdomen (axial images 26-35 of 104) in an area spanning approximately 6.5 cm transverse by 1.6 cm AP by 4.2 cm cc maximal dimensions. Commonly this may represent ecchymosis or sequela of subcutaneous injections. Cellulitis or rarely soft tissue mass could have a similar appearance. New mild right hydronephrosis, hydroureter with possible 1 mm distal right ureteral calculus axial image 65/104. Otherwise findings may be related to passed stone, urinary tract infection or other process. 2 mm non-obstructing right renal calculus is unchanged. The left ureter is normal. Previously reported pancreatic head mass suspected neoplasm which on the prior exam measured approximately 4.0 x 3.9 by 3.7 cm is minimally increased now measures approximately 4.4 cm AP by 4.2 cm transverse by 4.1 cm cc maximal dimensions. Associated calcifications mildly increased. Previously noted intra and extrahepatic biliary ductal dilatation is decreased. The common bile duct now measures up to 8 mm within normal limits for patient's age. Approximately 7 cm periumbilical anterior midline abdominal wall hernia containing fat is relatively unchanged. Mild soft tissue subcutaneous edema and edema in the gluteus muscles and just posterior to the ischial tuberosities is non-specific may be related to cellulitis or decubitus ulcers left greater than right without focal loculated fluid collection to suggest abscess. Moderate pelvic floor prolapse and nonspecific soft tissue edema of the distal rectum/anus commonly related to proctitis, hemorrhoids or other anal rectal lesion mildly increased. Severe calcifications of the abdominal aorta without CT evidence of aneurysm or dissection. Mild nonspecific wall thickening of the stomach and duodenum some of which commonly artifact from partial nondistention although gastritis, duodenitis could have a similar appearance increased. Surgical clips status post cholecystectomy. Moderate degenerate changes lower thoracic, lumbar spine most notably at L4-5 with suspected severe central stenosis progressed. No CT evidence of acute fracture or subluxation. Moderate degenerate changes bilateral hips progressed. Lower Chest: No significant findings. ABDOMEN: Liver: Micronodular contour of the liver with hypertrophied caudate lobe suggests early findings of cirrhotic change progressed. Spleen: Size is within normal limits. Adrenal Glands: No adrenal nodules. Bowel: Normal colonic caliber, without wall thickening, no obstruction. Peritoneum: No abnormal intraperitoneal fluid. No free air. Abdominal Nodes: No retroperitoneal or mesenteric adenopathy by size criteria. Vessels: Aorta and inferior vena cava are normal in size. PELVIS: Pelvic Organs: Unremarkable. Bladder: No bladder wall thickening, accounting for underdistention. IMPRESSION: Increased subcutaneous edema right anterolateral abdomen as discussed above. New mild right hydronephrosis, hydroureter with possible 1 mm distal right ureteral calculus. Otherwise findings may be related to passed stone, urinary tract infection or other process. 2 mm non-obstructing right renal calculus is unchanged. Previously reported pancreatic head mass suspected neoplasm minimally increased. Previously noted intra and extrahepatic biliary ductal dilatation is decreased. 7 cm periumbilical anterior midline abdominal wall hernia containing fat is unchanged. Mild soft tissue subcutaneous edema and gluteus muscles may be related to cellulitis or decubitus ulcers progressed. Moderate pelvic floor prolapse and soft tissue edema of the distal rectum/anus increased. Mild nonspecific wall thickening of the stomach and duodenum increased. Moderate degenerate changes most notably at L4-5 with severe central stenosis progressed. Micronodular contour of the liver suggests cirrhotic change progressed. Continued follow-up suggested. Dictated by: Lionel Bunch M.D. on 04/01/2024 at 11:04 Approved by: Lionel Bunch M.D. on 04/01/2024 at 11:37
[2024-04-01 09:50] LABS: Urine Volume 10mL (spun)
[2024-04-01 09:52] LABS: Bacteria Urine Few (2-10); RBC Urine None Seen (0-5/HPF); Squamous Epithelial Cell Urine 0-1 /HPF (0-5/HPF); WBC Urine 0-1/HPF (0-5/HPF)
[2024-04-01 09:53] LABS: Culture Indicated Urine Cult Not Indicated
[2024-04-01 10:02] LABS: Add Manual Diff / Slide Review NO; Basophils Absolute Auto 0 /uL (0-100); Basophils Percent Auto 0.6 % (0-2); Eosinophils Absolute Auto 100 /uL (0-450); Eosinophils Percent Auto 2.8 % (2-4); Hemoglobin 11.9 g/dL (12.0-16.0); Lymphocytes Absolute Auto 700 /uL (1100-4500); Lymphocytes Percent Auto 19.8 % (25-40); Mean Corpuscular HGB Conc 33.2 % (30-36); Mean Corpuscular Hemoglobin 32.6 PG (26-34); Mean Corpuscular Volume 98.4 fL (80-100); Monocytes Absolute Auto 200 /uL (0-900); Monocytes Percent Auto 6.9 % (3-14); Neutrophils Absolute Auto 2500 /uL (1500-7000); Neutrophils Percent Auto 69.9 % (50-75); Platelet Count 127 X10^3/uL (150-400); Red Blood Cell Count 3.66 X10^6/uL (4.0-5.2); Red Cell Distribution Width 13.6 % (11.6-14.8); White Blood Cell Count 3.6 X10^3/uL (4.5-11.0)
[2024-04-01 10:22] LABS: Alanine Aminotransferase 69 IU/L (<35); Albumin 3.3 g/dL (3.5-5.0); Albumin Globulin Ratio 1.4 (1.0-2.8); Alkaline Phosphatase 170 U/L (38-126); Aspartate Aminotransferase 88 IU/L (14-36); BUN Creatinine Ratio 23.8 (6-22); Bilirubin Total 0.8 mg/dL (0.2-1.3); Blood Urea Nitrogen 35 mg/dL (7-17); Carbon Dioxide 27 mmol/L (22-32); Chloride 98 mmol/L (98-107); Estimated Glomerular Filt Rate 35 mL/min (>60); Globulin 2.4 g/dL (1.7-4.1); Lipase 44 U/L (23-300); Sodium 131 mmol/L (137-145); Total Protein 5.7 g/dL (6.3-8.2)
[2024-04-01 10:38] LABS: Calcium 8.4 mg/dL (8.4-10.2); Glucose 316 mg/dL (80-110)
[2024-04-01 10:39] LABS: HEMOLYSIS 53 (0-50); Potassium 5.4 mmol/L (3.4-5.1)
[2024-04-01] MEDS: SODIUM CHLORIDE 0.9% 1,000 ML 1000 ML IV (11:07)
--- NOTE | 2024-04-01 11:11 | PC.NURSE ---
States she was picking up a 12 pack of soda when she felt a pop. Pt states she has a hx of pancreatic tumor which she is treated for. Pt denies other symptoms.
[2024-04-01 12:20] VITALS: BP 159/109; PULSE 58; RESP 14; O2SAT 98
== END 2024-04-01 12:22 | disposition home or self-care (01) ==
PROVIDERS: Emergency Provider Emergency Medicine; PCP Internal Medicine
DX: N20.0 Calculus of kidney (principal); S39.012A Strain of muscle, fascia and tendon of lower back, initial encounter; X50.1XXA Overexertion from prolonged static or awkward postures, initial encounter; E11.9 Type 2 diabetes mellitus without complications; Z79.4 Long term (current) use of insulin; I10 Essential (primary) hypertension; Z79.899 Other long term (current) drug therapy; Z85.07 Personal history of malignant neoplasm of pancreas
CPT/HCPCS: 36415; 74177; 80053; 81003; 81015; 83690; 85025; 96360; 96372; 99284; J1885; Q9967

== ENCOUNTER 2024-06-24 22:51 | Inpatient (IN) | payer MEDICARE, OTHER, SELFPAY ==
[2024-06-24 23:01] VITALS: BP 184/101; PULSE 77; RESP 16; TEMP 36.6; O2SAT 97; BMI 34.2
--- NOTE | 2024-06-24 23:10 | DI.RAD.S_ITS ---
PROCEDURE: XR HIP W PEL IF DONE LT 2V INDICATIONS: Fall two days ago, pain with bearing weight TECHNIQUE: AP pelvis with lateral view(s) of the left hip(s). COMPARISON: None. FINDINGS: Bones: No fractures or dislocations. Pelvic ring appears intact. No suspicious bony lesions. Soft tissues: The visualized bowel gas pattern is normal. No suspicious soft tissue calcifications. Surgical clips projecting over the left pelvis. IMPRESSION: No acute osseous abnormality. If pain persists with conservative management, consider repeat x-ray in 10-14 days or cross-sectional imaging. Dictated by: Gray Titus M.D. on 06/24/2024 at 23:45 Approved by: Gray Titus M.D. on 06/24/2024 at 23:45
--- NOTE | 2024-06-24 23:49 | DI.CT.S_ITS ---
PROCEDURE: CT PEL WO CON INDICATIONS: Left SI joint pain after fall TECHNIQUE: Noncontrast 3 mm axial sections acquired through the bony pelvis, with coronal and sagittal reformatting. COMPARISON: [facility], CT, CT ABDOMEN PELVIS W CON, 04/01/2024, 10:47. [facility], CR, XR HIP W PEL IF DONE LT 2V, 06/24/2024, 23:11. FINDINGS: Image quality: Excellent. Bones: Decreased osseous mineralization. No acute fractures are seen. Degenerative changes of the sacroiliac joints. L5 compression deformity as described on dedicated lumbar spine CT. Soft tissues: Lower anterior abdominal hernia containing fat. Atherosclerotic vascular calcifications. IMPRESSION: No acute pelvic fractures. Redemonstration of L5 compression deformity as described on dedicated lumbar spine CT. Dictated by: Gray Titus M.D. on 06/25/2024 at 1:00 Approved by: Gray Titus M.D. on 06/25/2024 at 1:04
--- NOTE | 2024-06-24 23:51 | ED_ITS ---
HPI - Fall General Chief Complaint: Fall Stated Complaint: lt sided fall. unable to walk Time Seen by Provider: 06/24/24 22:57 Source: patient and family Mode of arrival: Ambulatory History of Present Illness HPI Narrative: Patient is an 84-year-old female. Not on anticoagulation. Is a insulin- dependent diabetic. Has neuropathy at baseline. A couple days ago was trying to get out of bed. She states that her left leg? would not cooperate? she stated that she slid down onto the floor. She did hit her head but no loss of consciousness. No other injuries from the event. She stated that since the event she was had difficulty standing and walking. Went to go see her primary doctor. There were orders for her to have a CT lumbar spine and CT pelvis as an outpatient. Patient and son who is at bedside states that her discomfort was so bad this evening they decided to seek evaluation this evening. She denies any urinary symptoms change. Discomfort occurs when she was standing. She was not having to use a walker which is not normal for her. She normally uses a cane at bedside. She was getting ?shocks? and pain down her left leg. No other injuries from the event. Related Data Home Medications Medication Instructions Recorded Confirmed atorvastatin 40 mg tablet 40 mg PO DAILY 11/18/20 11/18/20 cholecalciferol (vitamin D3) 1,250 1,250 mcg PO QWEEK 11/18/20 11/18/20 mcg (50,000 unit) tablet diphenoxylate-atropine 2.5 tab 11/18/20 11/18/20 mg-0.025 mg tablet hydrochlorothiazide 25 mg tablet 25 mg 11/18/20 insulin aspart U-100 100 unit/mL unit SUBCUT 11/18/20 11/18/20 (3 mL) subcutaneous pen insulin aspart U-100 100 unit/mL unit SUBCUT 11/18/20 11/18/20 (3 mL) subcutaneous pen (Novolog FlexPen U-100 Insulin aspart) lisinopril 20 mg tablet 20 mg 11/18/20 omeprazole 20 mg capsule,delayed 40 mg PO BID 11/18/20 11/18/20 release sertraline 100 mg tablet 100 mg PO DAILY 11/18/20 11/18/20 solifenacin 10 mg tablet 10 mg PO 11/18/20 Previous Rx's Medication Instructions Recorded cefpodoxime 200 mg tablet 200 mg PO Q12H #14 tabs 11/20/23 acetaminophen 300 mg-codeine 15 mg 1 tab PO QID PRN pain #14 tabs 04/01/24 tablet Allergies Allergy/AdvReac Type Severity Reaction Status Date / Time No Known Drug Allergies Allergy Verified 06/24/24 23:09 Review of Systems Review of Systems Narrative: See HPI Patient History Medical History Kidney stone on left side Pancreatic cancer Social History Smoking Status: Former smoker Smoking Status: Former smoker tobacco type: cigarettes alcohol intake frequency: a few times a month Exam Initial Vital Signs Initial Vital Signs: Vital Signs Temperature 98 F 06/24/24 23:01 Pulse Rate 77 06/24/24 23:01 Respiratory Rate 16 06/24/24 23:01 Blood Pressure 184/101 H 06/24/24 23:01 Pulse Oximetry 97 06/24/24 23:01 Oxygen Delivery Method Room Air 06/24/24 23:01 Const General: cooperative, comfortable and No ill appearing HENMT Head: normal to inspection and normocephalic Resp Effort & Inspection: normal respiratory effort Cardio Rate: regular rate GI Inspection: normal to inspection and non-distended Palpation: soft and No tender Back/Spine/Pelvis Thoracic/Lumbar Spine: No thoraco-lumbar spasm, No thoracic spinal tenderness and lumbar spinal tenderness Sacroiliac Joints: tender to palpation left Skin General: no rashes or lesions noted Neuro General: patient alert and patient awake Extrem Other: No discomfort with movement of the left ankle or left knee. Internal and external rotation of the left hip is unremarkable. Flexion-extension left hip is unremarkable. Course Orders Ordered: ED Orders 06/24/24 23:10 XR hip w pel if done LT 2V Stat 06/24/24 23:49 CT lumbar spine wo con Stat CT pelvis wo con Stat 06/24/24 23:59 Urine Culture Stat Urine Microscopic Stat 06/25/24 01:23 Basic Metabolic Panel Stat Complete Blood Count AUTO DIFF Stat 06/25/24 01:30 Consult to Orthopedic Surgery Stat Discontinued Medications Hydrocodone Bitart/Acetaminophen (Hydrocodone/Acet 5/325 Tablet) 1 tab PO NOW ONE Stop: 06/25/24 00:12 Last Admin: 06/25/24 00:22 Dose: 1 tab Documented By: TOI Morphine Sulfate (Morphine 4 Mg/Ml Inj) 4 mg IV NOW ONE Stop: 06/25/24 01:24 Last Admin: 06/25/24 01:29 Dose: 4 mg Documented By: YENI Vital Signs Vital signs: Vital Signs - 8 hr 06/24/24 23:01 Temperature 98 F Pulse Rate 77 Respiratory Rate 16 Blood Pressure 184/101 H Pulse Oximetry 97 Oxygen Delivery Method Room Air MDM - Fall Lab Data Attestation: I reviewed the patient's lab results. Labs: Lab Results 06/24/24 Range/Units 23:59 Urine RBC None seen (0-5/HPF) Urine WBC 1-5/hpf (0-5/HPF) Ur Squamous Epith Cells 0-1 /hpf (0-5/HPF) Urine Bacteria Many (>30) H (None) Ur Culture Indicated? Specimen cultured Vol Urine Centrifuged 10ml (spun) Urine Dip Bedside Urine Glucose Negative Bedside Urine Bilirubin - Negative Bedside Urine Ketone + 15 Urine Specific [place] 1.015 Bedside Urine Occult Blood +/- Bedside Urine pH 6.0 Bedside Urine Protein + 30 Bedside Urine Urobilinogen - Negative Bedside Urine Nitrite - Negative Bedside Urine Leukocytes + 70 Esterase Imaging Data Lumbar spine CT: Radiologist's Impression: PROCEDURE: CT LUMBAR SPINE WO CON INDICATIONS: Low back pain after fall TECHNIQUE: Noncontrast 3 mm thick sections acquired from the T12 level to the sacrum. Sagittal and coronal reformats were constructed. For radiation dose reduction, the following was used: automated exposure control. COMPARISON: [facility], CT, CT ABDOMEN PELVIS W CON, 04/01/2024, 10:47. FINDINGS: Image quality: Excellent. Bones: There is normal bony alignment. Compression deformity of the L5 vertebral body with approximately 50 percent height loss. There is mild retropulsion resulting in at least mild central canal stenosis. Multilevel degenerative changes the lumbar spine, most pronounced in the lower lumbar spine. At least moderate left neural foraminal stenosis at L4-5. More mild neural foraminal stenosis is noted at other le vels.. No suspicious lytic or blastic bony lesions. No pars defects. Soft tissues: Redemonstration of pancreatic head mass which is not well evaluated on this noncontrast exam. No retroperitoneal masses or hematomas. Visualized aorta is normal in caliber. Atherosclerotic vascular calcifications. Status post cholecystectomy. Left kidney is relatively atrophic. Nonobstructing right renal stone measuring 4 millimeters. IMPRESSION: Compression deformity of the L5 vertebral body with approximately 50 percent height loss is new compared to 04/01/2024. There is mild retropulsion resulting in at least mild central canal stenosis. Redemonstration of pancreatic head mass which is not well evaluated on this noncontrast exam. Please see above for additional findings. X-ray hip: Radiologist's Impression: PROCEDURE: XR HIP W PEL IF DONE LT 2V INDICATIONS: Fall two days ago, pain with bearing weight TECHNIQUE: AP pelvis with lateral view(s) of the left hip(s). COMPARISON: None. FINDINGS: Bones: No fractures or dislocations. Pelvic ring appears intact. No suspicious bony lesions. Soft tissues: The visualized bowel gas pattern is normal. No suspicious soft tissue calcifications. Surgical clips projecting over the left pelvis. IMPRESSION: No acute osseous abnormality. If pain persists with conservative management, consider repeat x-ray in 10-14 days or cross-sectional imaging. CT pelvis: Radiologist's Impression: PROCEDURE: CT PEL WO CON INDICATIONS: Left SI joint pain after fall TECHNIQUE: Noncontrast 3 mm axial sections acquired through the bony pelvis, with coronal and sagittal reformatting. COMPARISON: [facility], CT, CT ABDOMEN PELVIS W CON, 04/01/2024, 10:47. [facility], CR, XR HIP W PEL IF DONE LT 2V, 06/24/2024, 23:11. FINDINGS: Image quality: Excellent. Bones: Decreased osseous mineralization. No acute fractures are seen. Degenerative changes of the sacroiliac joints. L5 compression deformity as described on dedicated lumbar spine CT. Soft tissues: Lower anterior abdominal hernia containing fat. Atherosclerotic vascular calcifications. IMPRESSION: No acute pelvic fractures. Redemonstration of L5 compression deformity as described on dedicated lumbar spine CT. MDM Narrative Medical decision making narrative: Patient had what appears to be a mechanical fall. CT scan today shows what appears to be a new L5 compression fracture. When she stands she occasionally gets radicular symptoms to her left leg. It was not bilateral. It does c orrespond to the L5-S1 nerve distribution. No other injuries from the event. After medication here in the ER patient still has quite a bit of discomfort with standing. I did discuss the case with Dr. Bedolla on-call for Orthopedic surgery who recommended conservative measures to begin with to include an MRI and pain medication and physical therapy and potentially a brace. If symptoms are not controlled with this or if any new symptoms develop or worsening findings on MRI she may need transferred for spine surgery as we do not have that available at this facility. Discussed the need for admission with the patient and son. They expressed understanding. There is a pancreatic mass that the patient is aware of. She was followed by oncology and gets shots every several weeks for treatment of this. She denies any urinary symptoms. Discharge Plan Departure Patient Disposition: Admitted as Observation Clinical Impression: Compression fracture of C5 vertebra Admit Date/Time: 06/25/24 01:42 Admit Provider: Jelani Corcoran
[2024-06-25] VITALS (19 sets, daily range): BP systolic 122–194; BP diastolic 46–79; PULSE 70–89; RESP 12–33; TEMP 36.3–36.4; O2SAT 93–99; BMI 34.2; BMI 41.9
[2024-06-25 00:15] LABS: Bacteria Urine Many (>30); Culture Indicated Urine Specimen Cultured; RBC Urine None Seen (0-5/HPF); Squamous Epithelial Cell Urine 0-1 /HPF (0-5/HPF); Urine Volume 10mL (spun); WBC Urine 1-5/HPF (0-5/HPF)
[2024-06-25] MEDS: HYDROCODONE/ACET 5/325 TABLET 1 TAB PO ×4 (00:22→20:49)
[2024-06-25] MEDS: MORPHINE 4 MG/ML INJ IV (01:29)
--- NOTE | 2024-06-25 01:59 | DI.MRI.S_ITS ---
PROCEDURE: MR LUMBAR SPINE WO CON INDICATIONS: compression fracture L5 TECHNIQUE: Noncontrast sagittal T1 spin echo and T2 fast echo, sagittal STIR, and T2 fast spin echo through the lumbar spine. In cases with scoliosis, additional coronal T2 fast spin echo may be performed. COMPARISON: [facility], CT, CT LUMBAR SPINE WO CON, 06/24/2024, 23:58. FINDINGS: Image quality: Excellent. Alignment and Curvature: There is minimal to mild levoconvex lumbar scoliotic curvature. Bone Marrow: Marrow is of normal overall signal. There is an L5 compression deformity seen, with 40% loss of height centrally. There is posterior displacement fracture fragments of 3-4 mm. The posterior displacement of the bony fragments is better demonstrated on the recent prior CT study. Spinal Cord: Conus medullaris terminates at the L1 level. Visualized cord demonstrates normal signal and size. Paraspinous Soft Tissues: No paravertebral masses. T12-L1: Normal appearance. L1-L2: Normal appearance. L2-L3: Mild loss of disc height is seen. Loss of disc signal is seen. Mild to moderate disc bulge is seen, which is eccentric to the right. Mild facet joint hypertrophy is seen. Moderate bilateral neural foraminal narrowing is seen, right worse than left. Minimal central canal narrowing is seen. L3-L4: The disc height is well-preserved. Loss of disc signal is seen at this level. Mild to moderate disc bulge is seen, with a central disc protrusion. Moderate facet joint hypertrophy is seen. There is [id number] right-sided and moderate left-sided neural foraminal narrowing. Mild central canal narrowing is seen. L4-L5: The disc height is well-preserved. Loss of disc signal is seen at this level. Moderate disc bulge is seen, with a mild central disc protrusion. Prominent facet hypertrophy is seen, left worse than right. There is moderate right-sided and moderate to severe left-sided neural foraminal narrowing. There is a degree of compression seen upon the exiting left L4 nerve root. At least moderate central canal narrowing is seen. L5-S1: The disc height is well-preserved. Loss of disc signal is seen at this level. Mild generalized disc bulge is seen. Moderate facet joint hypertrophy is seen. There is moderate left-sided and no significant right-sided neural foraminal narrowing. No significant central canal narrowing is seen. IMPRESSION: As previously demonstrated, there is an acute L5 fracture, with posterior displacement of fracture fragments. Multiple levels of underlying degenerative change are seen, which are overall worst at the L4-L5 level. Dictated by: Daniel Carmona M.D. on 06/25/2024 at 11:00 Approved by: Daniel Carmona M.D. on 06/25/2024 at 11:06
[2024-06-25 02:03] LABS: Add Manual Diff / Slide Review NO; Basophils Absolute Auto 0 /uL (0-100); Basophils Percent Auto 0.5 % (0-2); Eosinophils Absolute Auto 0 /uL (0-450); Eosinophils Percent Auto 0.2 % (2-4); Hematocrit 36.3 % (36-46); Hemoglobin 12.2 g/dL (12.0-16.0); Lymphocytes Absolute Auto 600 /uL (1100-4500); Lymphocytes Percent Auto 11.2 % (25-40); Mean Corpuscular HGB Conc 33.6 % (30-36); Mean Corpuscular Hemoglobin 32.8 PG (26-34); Mean Corpuscular Volume 97.6 fL (80-100); Monocytes Absolute Auto 400 /uL (0-900); Monocytes Percent Auto 6.5 % (3-14); Neutrophils Absolute Auto 4700 /uL (1500-7000); Neutrophils Percent Auto 81.6 % (50-75); Platelet Count 184 X10^3/uL (150-400); Red Blood Cell Count 3.71 X10^6/uL (4.0-5.2); Red Cell Distribution Width 14.2 % (11.6-14.8); White Blood Cell Count 5.7 X10^3/uL (4.5-11.0)
--- NOTE | 2024-06-25 02:10 | ED.FALL ---
HPI - Fall General Chief Complaint: Fall Stated Complaint: lt sided fall. unable to walk Time Seen by Provider: 06/24/24 22:57 Source: patient and family Mode of arrival: Ambulatory History of Present Illness HPI Narrative: The pt is a 84 yo who Related Data Home Medications Medication Instructions Recorded Confirmed atorvastatin 40 mg tablet 40 mg PO DAILY 11/18/20 06/25/24 cholecalciferol (vitamin D3) 1,250 1,250 mcg PO QWEEK 11/18/20 11/18/20 mcg (50,000 unit) tablet diphenoxylate-atropine 2.5 2 tab Q4HR PRN Diarrhea 11/18/20 06/25/24 mg-0.025 mg tablet insulin aspart U-100 100 unit/mL See Rx Instructions .Route .COMPLEX 11/18/20 06/25/24 (3 mL) subcutaneous pen (Novolog FlexPen U-100 Insulin aspart) lisinopril 20 mg tablet 20 mg DAILY 11/18/20 06/25/24 omeprazole 20 mg capsule,delayed 20 mg PO BID 11/18/20 06/25/24 release sertraline 100 mg tablet 100 mg PO DAILY 11/18/20 06/25/24 solifenacin 10 mg tablet 10 mg PO DAILY 11/18/20 06/25/24 colchicine 0.6 mg tablet 0.6 mg PO DAILY 06/25/24 06/25/24 gabapentin 100 mg capsule 100 mg PO ONCE PM 06/25/24 06/25/24 potassium chloride 8 mEq 8 meq PO DAILY 06/25/24 06/25/24 capsule,extended release torsemide 10 mg tablet 10 mg PO DAILY 06/25/24 06/25/24 Allergies Allergy/AdvReac Type Severity Reaction Status Date / Time No Known Drug Allergies Allergy Verified 06/24/24 23:09 Patient History Medical History Kidney stone on left side Pancreatic cancer Social History Smoking Status: Former smoker Smoking Status: Former smoker tobacco type: cigarettes alcohol intake frequency: a few times a month Exam Initial Vital Signs Initial Vital Signs: Vital Signs Temperature 98 F 06/24/24 23:01 Pulse Rate 77 06/24/24 23:01 Respiratory Rate 16 06/24/24 23:01 Blood Pressure 184/101 H 12/05/24 23:01 Pulse Oximetry 97 06/24/24 23:01 Oxygen Delivery Method Room Air 06/24/24 23:01 Course Orders Ordered: ED Orders 06/24/24 23:10 XR hip w pel if done LT 2V Stat 06/24/24 23:49 CT lumbar spine wo con Stat CT pelvis wo con Stat 06/24/24 23:59 Urine Culture Stat Urine Microscopic Stat 06/25/24 01:30 Consult to Orthopedic Surgery Stat 06/25/24 01:40 Basic Metabolic Panel Stat Complete Blood Count AUTO DIFF Stat Acetaminophen (Acetaminophen 325 Mg Tablet) 650 mg PO Q6H PRN PRN Reason: Fever/Mild Pain (1-3) Hydrocodone Bitart/Acetaminophen (Hydrocodone/Acet 5/325 Tablet) 1 tab PO Q4H PRN PRN Reason: Pain, Moderate (4-6) Calcium Carbonate (Calcium Carbonate 500 Mg Tab) 1,000 mg PO Q4HR PRN PRN Reason: Dyspepsia Enoxaparin Sodium (Enoxaparin 40 Mg/0.4 Ml Syringe) 40 mg SUBCUT DAILY [facility] Ketorolac Tromethamine (Ketorolac 30 Mg/Ml Vial) 15 mg IV Q6H PRN PRN Reason: Pain, Moderate (4-6) Stop: 06/30/24 02:02 Lidocaine (Lidocaine 5% Patch) 1 each TOP DAILY [facility] Naloxone HCl (Naloxone 0.4 Mg/Ml Vial) 0.2 mg IV Q2MIN PRN PRN Reason: Opiate Reversal Ondansetron HCl (Ondansetron 4 Mg/2 Ml Inj) 4 mg IV Q8HR PRN PRN Reason: Nausea And Vomiting Sennosides (Sennosides 8.6 Mg Tablet) 17.2 mg PO BEDTIME AYSHA Discontinued Medications Hydrocodone Bitart/Acetaminophen (Hydrocodone/Acet 5/325 Tablet) 1 tab PO NOW ONE Stop: 06/25/24 00:12 Last Admin: 06/25/24 00:22 Dose: 1 tab Documented By: TOI Morphine Sulfate (Morphine 4 Mg/Ml Inj) 4 mg IV NOW ONE Stop: 06/25/24 01:24 Last Admin: 06/25/24 01:29 Dose: 4 mg Documented By: YENI Vital Signs Vital signs: Vital Signs - 8 hr 06/24/24 23:01 Temperature 98 F Pulse Rate 77 Respiratory Rate 16 Blood Pressure 184/101 H Pulse Oximetry 97 Oxygen Delivery Method Room Air MDM - Fall Lab Data 06/25/24 01:40 06/25/24 01:40 Labs: Lab Results 06/24/24 06/25/24 Range/Units 23:59 01:40 WBC 5.7 (4.5-11.0) X10^3/uL RBC 3.71 L (4.0-5.2) X10^6/uL Hgb 12.2 (12.0-16.0) g/dL Hct 36.3 (36-46) % MCV 97.6 (80-100) fL MCH 32.8 (26-34) PG MCHC 33.6 (30-36) % RDW 14.2 (11.6-14.8) % Plt Count 184 (150-400) X10^3/uL Neut % (Auto) 81.6 H (50-75) % Lymph % (Auto) 11.2 L (25-40) % [place] % (Auto) 6.5 (3-14) % Eos % (Auto) 0.2 L (2-4) % Baso % (Auto) 0.5 (0-2) % Neut # (Auto) 4700 (0024-9507) /uL Lymph # (Auto) 600 L (9900-7859) /uL [place] # (Auto) 400 (0-900) /uL Eos # (Auto) 0 (0-450) /uL Baso # (Auto) 0 (0-100) /uL Urine RBC None seen (0-5/HPF) Urine WBC 1-5/hpf (0-5/HPF) Ur Squamous Epith Cells 0-1 /hpf (0-5/HPF) Urine Bacteria Many (>30) H (None) Ur Culture Indicated? Specimen cultured Vol Urine Centrifuged 10ml (spun) Urine Dip Bedside Urine Glucose Negative Bedside Urine Bilirubin - Negative Bedside Urine Ketone + 15 Urine Specific [place] 1.015 Bedside Urine Occult Blood +/- Bedside Urine pH 6.0 Bedside Urine Protein + 30 Bedside Urine Urobilinogen - Negative Bedside Urine Nitrite - Negative Bedside Urine Leukocytes + 70 Esterase Discharge Plan Departure Patient Disposition: Admitted as Observation Clinical Impression: Compression fracture of C5 vertebra
[2024-06-25 02:13] LABS: BUN Creatinine Ratio 22.6 (6-22); Blood Urea Nitrogen 28 mg/dL (7-17); Calcium 8.6 mg/dL (8.4-10.2); Carbon Dioxide 26 mmol/L (22-32); Chloride 103 mmol/L (98-107); Estimated Glomerular Filt Rate 43 mL/min (>60); Glucose 271 mg/dL (80-110); HEMOLYSIS < 15 (0-50); Potassium 3.9 mmol/L (3.4-5.1); Sodium 136 mmol/L (137-145)
--- NOTE | 2024-06-25 02:19 | P.HP_ITS ---
History of Present Illness History of Present Illness Date Patient Seen: 06/25/24 Time Patient Seen: 02:19 Chief complaint: lt sided fall. unable to walk Narrative: The pt is a 84 yo with a known hx of pancreatic cancer and receives immunotherapy for the past 3 years who presents to the ER after a fall 3 days ago when she slid off her bed onto the floor, afterwards she has had severe pain in her lower back with occation radiation of the pain down her legs. Her left leg is weakness and more painful than the right. [facility] Medical History Kidney stone on left side Pancreatic cancer Social History Smoking Status: Former smoker Meds Home Medications and Allergies Home Medications Medication Instructions Recorded Confirmed Type atorvastatin 40 mg tablet 40 mg PO DAILY 11/18/20 06/25/24 History cholecalciferol (vitamin D3) 1,250 1,250 mcg PO QWEEK 11/18/20 11/18/20 History mcg (50,000 unit) tablet diphenoxylate-atropine 2.5 2 tab Q4HR PRN Diarrhea 11/18/20 06/25/24 History mg-0.025 mg tablet insulin aspart U-100 100 unit/mL See Rx Instructions .Route .COMPLEX 11/18/20 06/25/24 History (3 mL) subcutaneous pen (Novolog FlexPen U-100 Insulin aspart) lisinopril 20 mg tablet 20 mg DAILY 11/18/20 06/25/24 History omeprazole 20 mg capsule,delayed 20 mg PO BID 11/18/20 06/25/24 History release sertraline 100 mg tablet 100 mg PO DAILY 11/18/20 06/25/24 History solifenacin 10 mg tablet 10 mg PO DAILY 11/18/20 06/25/24 History colchicine 0.6 mg tablet 0.6 mg PO DAILY 06/25/24 06/25/24 History gabapentin 100 mg capsule 100 mg PO ONCE PM 06/25/24 06/25/24 History insulin glargine 100 unit/mL (3 See Rx Instructions .Route .COMPLEX 06/25/24 06/25/24 History mL) subcutaneous pen (Lantus Solostar U-100 Insulin) potassium chloride 8 mEq 8 meq PO DAILY 06/25/24 06/25/24 History capsule,extended release torsemide 10 mg tablet 10 mg PO DAILY 06/25/24 06/25/24 History Allergies Allergy/AdvReac Type Severity Reaction Status Date / Time No Known Drug Allergies Allergy Verified 06/24/24 23:09 Exam Vital Signs (past 8 hours): - 06/24/24 23:01 Temperature 98 F Pulse Rate 77 Respiratory Rate 16 Blood Pressure 184/101 H Pulse Oximetry 97 Oxygen Delivery Method Room Air Oxygen Delivery Method Room Air Resp Auscultation: clear to auscultation bilaterally Extrem General: normal to inspection and pedal edema Objective Labs 06/25/24 01:40 06/25/24 01:40 Labs: Laboratory Results - last 24 hr 06/24/24 06/25/24 23:59 01:40 WBC 5.7 RBC 3.71 L Hgb 12.2 Hct 36.3 MCV 97.6 MCH 32.8 MCHC 33.6 RDW 14.2 Plt Count 184 Neut % (Auto) 81.6 H Lymph % (Auto) 11.2 L [place] % (Auto) 6.5 Eos % (Auto) 0.2 L Baso % (Auto) 0.5 Neut # (Auto) 4700 Lymph # (Auto) 600 L [place] # (Auto) 400 Eos # (Auto) 0 Baso # (Auto) 0 Sodium 136 L Potassium 3.9 Chloride 103 Carbon Dioxide 26 BUN 28 H Creatinine 1.24 H Estimated GFR 43 L BUN/Creatinine Ratio 22.6 H Glucose 271 H Calcium 8.6 Urine RBC None seen Urine WBC 1-5/hpf Ur Squamous Epith Cells 0-1 /hpf Urine Bacteria Many (>30) H Ur Culture Indicated? Specimen cultured Vol Urine Centrifuged 10ml (spun) Assessment & Plan Assessment & Plan narrative: 1. L5 compression fracture- I have discussed the pts condition with the ER provider including imaging and agree with the decision for admission. I have reviewed the labs showing the Na of 136 with a Cr of 1.2, xray showing the fracture. ER provider has consulted and discussed the pt's fracture with the rehab director occupational therapist ortho, Dr. Bedolla who is recommending a MRI of the lumbar spine. Pain meds have been ordered, PT/OT consulted, lidoderm patch, toradol, might need short term placement Time-Based Coding :: [TOTAL MINUTES] spent with patient and on the chart (including review of chart, obtaining history, exam, reviewing outside data, placing orders, documenting exam and treatment plan, and counseling patient) on [DATE].
[2024-06-25] MEDS: KETOROLAC 30 MG/ML VIAL 15 MG IV (04:36)
--- NOTE | 2024-06-25 07:22 | P.HP_ITS ---
History of Present Illness History of Present Illness Date Patient Seen: 06/25/24 Chief complaint: lt sided fall. unable to walk Narrative: From night doctor: The pt is a 84 yo with a known hx of pancreatic cancer and receives immunotherapy for the past 3 years who presents to the ER after a fall 3 days ago when she slid off her bed onto the floor, afterwards she has had severe pain in her lower back with occation radiation of the pain down her legs. Her left leg is weakness and more painful than the right. Found to have a compression fracture. S: She fell on Friday and has been struggling with lower lumbar pain and left foot burning as well as left leg weakness since Friday. She finally came in because of progressive severe pain and inability to ambulate. In the ED she was found to have an L5 compression on plain imaging. An MRI was obtained which reveals a L5 compression fracture with some retropulsion and nerve impingement. Orthopedics recommended a review by spine surgery. I reviewed her images with Dr. Gonzalez, spine surgery at [facility]. He feels the spine is stable with regard to the fracture but does recommended TLSO brace for the next several weeks. [facility] Medical History Kidney stone on left side Pancreatic cancer Social History household members: family Smoking Status: Former smoker Meds Home Medications and Allergies Home Medications Medication Instructions Recorded Confirmed Type atorvastatin 40 mg tablet 40 mg PO DAILY 11/18/20 06/25/24 History diphenoxylate-atropine 2.5 2 tab Q4HR PRN Diarrhea 11/18/20 06/25/24 History mg-0.025 mg tablet insulin aspart U-100 100 unit/mL See Rx Instructions .Route .COMPLEX 11/18/20 06/25/24 History (3 mL) subcutaneous pen (Novolog FlexPen U-100 Insulin aspart) lisinopril 20 mg tablet 20 mg PO DAILY 11/18/20 06/25/24 History omeprazole 20 mg capsule,delayed 20 mg PO BID 11/18/20 06/25/24 History release sertraline 100 mg tablet 100 mg PO DAILY 11/18/20 06/25/24 History solifenacin 10 mg tablet 10 mg PO DAILY 11/18/20 06/25/24 History colchicine 0.6 mg tablet 0.6 mg PO DAILY 06/25/24 06/25/24 History gabapentin 100 mg capsule 100 mg PO ONCE PM 06/25/24 06/25/24 History insulin glargine 100 unit/mL (3 See Rx Instructions .Route .COMPLEX 06/25/24 06/25/24 History mL) subcutaneous pen (Lantus Solostar U-100 Insulin) potassium chloride 8 mEq 8 meq PO DAILY 06/25/24 06/25/24 History capsule,extended release torsemide 10 mg tablet 10 mg PO DAILY 06/25/24 06/25/24 History Allergies Allergy/AdvReac Type Severity Reaction Status Date / Time No Known Drug Allergies Allergy Verified 06/24/24 23:09 Review of Systems Review of Systems Narrative: All else reviewed and otherwise unremarkable except as noted in the history and physical. Exam Vital Signs (past 8 hours): - 06/25/24 04:53 Pulse Rate 77 Respiratory Rate 20 Blood Pressure 186/76 H Pulse Oximetry 97 Oxygen Delivery Method Room Air Oxygen Delivery Method Room Air Narrative Exam Narrative: NAD, alert and oriented, fluent speech, calm. Normocephalic skull, EOMI, anicteric sclera, symmetric pupils. Oropharynx unremarkable, no droop. Neck supple, midline trachea, no adenopathy. Lungs clear, normal rate and effort. Heart regular, no murmur gallop or rub. Abdomen is soft, non distended and non tender. Extremities are free of edema. Skin is free of rash or lesions. Joints are not swollen or deformed. Judgment appears to be normal. She was severe pain occasionally when moving. She can lift the left leg off from the bed in a mostly straight fashion. There was some difficulty completely extending to 180? at the knee. Objective Imaging Multiple studies:: Radiologist's impression: Pelvis CT: No acute pelvic fractures. Redemonstration of L5 compression deformity as described on dedicated lumbar spine CT. LS spine CT: Compression deformity of the L5 vertebral body with approximately 50 percent height loss is new compared to 04/01/2024. There is mild retropulsion resulting in at least mild central canal stenosis. Redemonstration of pancreatic head mass which is not well evaluated on this noncontrast exam. Please see above for additional findings. Hip x-ray: No acute osseous abnormality. If pain persists with conservative management, consider repeat x-ray in 10-14 days or cross-sectional imaging. MRI LS: Paraspinous Soft Tissues: No paravertebral masses. T12-L1: Normal appearance. L1-L2: Normal appearance. L2-L3: Mild loss of disc height is seen. Loss of disc signal is seen. Mild to moderate disc bulge is seen, which is eccentric to the right. Mild facet joint hypertrophy is seen. Moderate bilateral neural foraminal narrowing is seen, right worse than left. Minimal central canal narrowing is seen. L3-L4: The disc height is well-preserved. Loss of disc signal is seen at this level. Mild to moderate disc bulge is seen, with a central disc protrusion. Moderate facet joint hypertrophy is seen. There is [id number] right-sided and moderate left-sided neural foraminal narrowing. Mild central canal narrowing is seen. L4-L5: The disc height is well-preserved. Loss of disc signal is seen at this level. Moderate disc bulge is seen, with a mild central disc protrusion. Prominent facet hypertrophy is seen, left worse than right. There is moderate right-sided and moderate to severe left-sided neural foraminal narrowing. There is a degree of compression seen upon the exiting left L4 nerve root. At least moderate central canal narrowing is seen. L5-S1: The disc height is well-preserved. Loss of disc signal is seen at this level. Mild generalized disc bulge is seen. Moderate facet joint hypertrophy is seen. There is moderate left-sided and no significant right-sided neural foraminal narrowing. No significant central canal narrowing is seen. IMPRESSION: As previously demonstrated, there is an acute L5 fracture, with posterior displacement of fracture fragments. Multiple levels of underlying degenerative change are seen, which are overall worst at the L4-L5 level. Labs 06/25/24 01:40 06/25/24 01:40 Labs: Laboratory Results - last 24 hr 06/24/24 06/25/24 23:59 01:40 WBC 5.7 RBC 3.71 L Hgb 12.2 Hct 36.3 MCV 97.6 MCH 32.8 MCHC 33.6 RDW 14.2 Plt Count 184 Neut % (Auto) 81.6 H Lymph % (Auto) 11.2 L [place] % (Auto) 6.5 Eos % (Auto) 0.2 L Baso % (Auto) 0.5 Neut # (Auto) 4700 Lymph # (Auto) 600 L [place] # (Auto) 400 Eos # (Auto) 0 Baso # (Auto) 0 Sodium 136 L Potassium 3.9 Chloride 103 Carbon Dioxide 26 BUN 28 H Creatinine 1.24 H Estimated GFR 43 L BUN/Creatinine Ratio 22.6 H Glucose 271 H Calcium 8.6 Urine RBC None seen Urine WBC 1-5/hpf Ur Squamous Epith Cells 0-1 /hpf Urine Bacteria Many (>30) H Ur Culture Indicated? Specimen cultured Vol Urine Centrifuged 10ml (spun) Assessment & Plan Assessment & Plan narrative: 1. L5 compression fracture, present on admission and active. - I have discussed the pts condition with the ER provider including imaging and agree with the decision for admission. I have reviewed the labs showing the Na of 136 with a Cr of 1.2, xray showing the fracture. ER provider has consulted and discussed the pt's fracture with the sales administration manager ortho, Dr. Bedolla who is recommending a MRI of the lumbar spine. Pain meds have been ordered, PT/OT consulted, lidoderm patch, toradol, might need short term placement 2. Dm 2, present on admission and stable. 3. Hypertension, present on admission and active. 4. Pancreas cancer which has been controlled since 2016 with monthly treatments. She gets these and would be Oncology. She was getting the [facility] prior to a recent change to would be. PLAN: -pain control with IV morphine and oral Vicodin. -we will probably wait an additional day for physical therapy given the degree of pain. -requesting a review of images by Dr. Gonzalez of spine surgery at [facility]. He feels this is stable, recommended non operative approach in a TLSO brace for the next several weeks. -met with the family and discuss the general plan and they understand. She will require an additional night of hospital care for severe pain and inability to move, much less stand due to severe pain. Her pain is currently uncontrolled. This supports inpatient status Time-Based Coding :: 35 min spent with patient and on the chart (including review of chart, obtaining history, exam, reviewing outside data, placing orders, documenting exam and treatment plan, and counseling patient) on 06/25. Quality MIPS - Admit I confirm the patient?s Advance Care Plan is present, Code status is documented, Surrogate decision maker is in patient?s record [If Yes, STOP here]: Yes MIPS - Meds 'Current medications' to include all prescriptions, ojtw-[id number] products, herbals, cannabis/cannabidiol products, and vitamin/mineral/dietary (nutritional) supplements. I have utilized all available resources to obtain, update, or review the patient?s current medications. [If Yes, STOP here]: Yes
[2024-06-25] MEDS: INSULIN LISPRO 100 UNIT/ML 3ML VIAL SUBCUT ×3 (08:13→16:57)
[2024-06-25] MEDS: INSULIN GLARGINE 100 UNIT/ML 3ML PEN 35 UNIT SUBCUT (08:13)
[2024-06-25] MEDS: ENOXAPARIN 40 MG/0.4 ML SYRINGE SUBCUT (08:14)
[2024-06-25] MEDS: ACETAMINOPHEN 325 MG TABLET 650 MG PO (08:14)
--- NOTE | 2024-06-25 08:34 | PC.NURSE ---
0740: rounding on patient, AAOx3. difficult for pt to sit up in bed due to back pain. Plan for 10am MRI. BS 269. insulin and meds given per SEP. sitting up in bed eating breakfast. PRN pain meds given for 9/10 back pain
--- NOTE | 2024-06-25 08:56 | P.CONS_ITS ---
History of Present Illness Consult details Date Patient Seen: 06/25/24 Time Patient Seen: 19:23 Chief complaint: lt sided fall. unable to walk Reason for consult: lumbar fracture Requesting provider: Jelani Babcock Narrative: called by ER for L5 fx-- was told compression fx with slight retropulsion but occasion LLE pain- shooting-- denied bowel/bladder dysfunction but pain uncontrolled -- reviewed CT scan -- i noted 2 column involvlement and would call this a burst fx --and concern for nerve root impingement given radicular symptoms -- rec MRI but also discussed with ER -- we do not have spine surgery coverage at this insitution so if instability (posterior element involvement or significant nerve root or canal impingement then pt would need transfer to facility with spine surgery. at minimum needs MRI pain control and TLSO. The patient is an 84-year-old female with a history of pancreatic cancer typically walks with a walker last Friday she went to stand up with a walker and it went out from under her and she fell onto her back. Since then she has had extreme difficulty walking and constant pain. She also notes intermittent shooting pain and numbness of her left lower extremity and that her left knee ?gives out?. She denies other injuries states constant back pain right at her low back lumbosacral junction. She states she has not had any relief until lying flat in the hospital. She had to use her alert button to call for help when she fell. States she finally had enough pain relief that she was able to eat something. Tells me she recently returned to bed from the bedside commode and was able to urinate. States her left lower extremity is not currently numb but the numbness comes and goes she along her leg along the backside and also down to the knee and again mentions the knee gives out when she tries to stand up. States it hurts more to move the left side. Meds Home Medications and Allergies Home Medications Medication Instructions Recorded Confirmed Type atorvastatin 40 mg tablet 40 mg PO DAILY 11/18/20 06/25/24 History diphenoxylate-atropine 2.5 2 tab Q4HR PRN Diarrhea 11/18/20 06/25/24 History mg-0.025 mg tablet insulin aspart U-100 100 unit/mL See Rx Instructions .Route .COMPLEX 11/18/20 06/25/24 History (3 mL) subcutaneous pen (Novolog FlexPen U-100 Insulin aspart) lisinopril 20 mg tablet 20 mg PO DAILY 11/18/20 06/25/24 History omeprazole 20 mg capsule,delayed 20 mg PO BID 11/18/20 06/25/24 History release sertraline 100 mg tablet 100 mg PO DAILY 11/18/20 06/25/24 History solifenacin 10 mg tablet 10 mg PO DAILY 11/18/20 06/25/24 History colchicine 0.6 mg tablet 0.6 mg PO DAILY 06/25/24 06/25/24 History gabapentin 100 mg capsule 100 mg PO ONCE PM 06/25/24 06/25/24 History insulin glargine 100 unit/mL (3 See Rx Instructions .Route .COMPLEX 06/25/24 06/25/24 History mL) subcutaneous pen (Lantus Solostar U-100 Insulin) potassium chloride 8 mEq 8 meq PO DAILY 06/25/24 06/25/24 History capsule,extended release torsemide 10 mg tablet 10 mg PO DAILY 06/25/24 06/25/24 History Allergies Allergy/AdvReac Type Severity Reaction Status Date / Time No Known Drug Allergies Allergy Verified 06/24/24 23:09 Review of Systems Review of Systems Narrative: Pancreatic cancer, diabetes. States typically walks with a walker Exam Vital Signs (past 8 hours): - 06/25/24 04:53 06/25/24 07:28 06/25/24 07:29 Pulse Rate 77 Respiratory Rate 20 Blood Pressure 186/76 H 181/72 H Pulse Oximetry 97 96 Oxygen Delivery Method Room Air 06/25/24 07:29 06/25/24 07:30 06/25/24 07:30 Pulse Rate 74 77 Respiratory Rate Blood Pressure 194/79 H Pulse Oximetry 98 99 Oxygen Delivery Method 06/25/24 08:00 Pulse Rate 89 Respiratory Rate 33 H Blood Pressure 194/79 H Pulse Oximetry Oxygen Delivery Method Oxygen Delivery Method Room Air Narrative Exam Narrative: Alert and oriented female in no acute distress lying in bed States she was recently up to a bedside commode and was able to urinate Notes she has comfortable for the 1st time lying flat but has been in constant pain since her injury on Friday. HEENT exam normocephalic atraumatic Respiratory unlabored on room air Heart regular rate and rhythm Abdomen soft nontender obese Moving bilateral upper extremities without limitation Bilateral lower extremities appropriate alignment no deformities demonstrates 5/5 dorsiflexion plantar flexion on the right 4/5 dorsiflexion and plantar flexion on the left secondary to pain-notes slight grimace with this. 5/5 EHL--sensation grossly intact to light touch superficial deep peroneal sural and saphenous nerves bilaterally. States numbness and left lower extremity comes and goes. Currently gone but states goes around the knee and back of leg. Complains of knee giving out when she tries to walk. There is no knee effusion. Calf and thigh are soft. No wounds. Palpable bilateral dorsalis pedis pulses. Complains of low back pain Objective Imaging MRI - lumbar: My impression: L5 burst fracture superior and inferior endplates some posterior retropulsion. Canal stenosis at that level and left greater than right foraminal stenosis Radiologist's impression: L4-L5: The disc height is well-preserved. Loss of disc signal is seen at this level. Moderate disc bulge is seen, with a mild central disc protrusion. Prominent facet hypertrophy is seen, left worse than right. There is moderate right-sided and moderate to severe left-sided neural foraminal narrowing. There is a degree of compression seen upon the exiting left L4 nerve root. At least moderate central canal narrowing is seen. L5-S1: The disc height is well-preserved. Loss of disc signal is seen at this level. Mild generalized disc bulge is seen. Moderate facet joint hypertrophy is seen. There is moderate left-sided and no significant right-sided neural foraminal narrowing. No significant central canal narrowing is seen. IMPRESSION: As previously demonstrated, there is an acute L5 fracture, with posterior displacement of fracture fragments. Multiple levels of underlying degenerative change are seen, which are overall worst at the L4-L5 level. Dictated by: Daniel Carmona M.D. on 06/25/2024 at 11:00 Approved by: Daniel Carmona M.D. on 06/25/2024 at 11:06 Labs 06/25/24 01:40 06/25/24 01:40 Labs: Laboratory Results - last 24 hr 06/24/24 06/25/24 23:59 01:40 WBC 5.7 RBC 3.71 L Hgb 12.2 Hct 36.3 MCV 97.6 MCH 32.8 MCHC 33.6 RDW 14.2 Plt Count 184 Neut % (Auto) 81.6 H Lymph % (Auto) 11.2 L [place] % (Auto) 6.5 Eos % (Auto) 0.2 L Baso % (Auto) 0.5 Neut # (Auto) 4700 Lymph # (Auto) 600 L [place] # (Auto) 400 Eos # (Auto) 0 Baso # (Auto) 0 Sodium 136 L Potassium 3.9 Chloride 103 Carbon Dioxide 26 BUN 28 H Creatinine 1.24 H Estimated GFR 43 L BUN/Creatinine Ratio 22.6 H Glucose 271 H Calcium 8.6 Urine RBC None seen Urine WBC 1-5/hpf Ur Squamous Epith Cells 0-1 /hpf Urine Bacteria Many (>30) H Ur Culture Indicated? Specimen cultured Vol Urine Centrifuged 10ml (spun) [facility] Medical History Kidney stone on left side Pancreatic cancer Tobacco & Substance Use Smoking Status: Former smoker Assessment & Plan Assessment and plan (1) Lumbar burst fracture: Qualifiers: Encounter type: initial encounter Fracture type: closed Qualified Code(s): S32.001A - Stable burst fracture of unspecified lumbar vertebra, initial encounter for closed fracture Status: Acute Plan reviewed L spine MRI and CT- called Hospitalist Dr. Rodríguez at 1337-- recommended pt transfer to facility with spine surgery (that is not longer a service at ) -- pt has L5 burst with some retropulsion and canal and formainal stenosis and nerve root compression-- and may be a candidate for decompression- defer to spine surgeon. also underlying degenerative changes. Dr. Rodríguez spoke with Dr. Gonzalez a spine surgeon at [facility] who made recommendations for the patients. Please see those recommendations which were TLSO and the patient was should follow up at [facility] with Dr. Gonzalez for additional follow up. Spoke to patient about her exam. Discussed importance of monitoring whether or not her nerve symptoms worsen. Right now she states the numbness to left lower extremity comes and goes. She is lying flat. Awaiting TLSO. I do not see any other extremity injuries. I am hopeful she will tolerate TLSO, but I do have some concerns this might be difficult with her habitus. I discussed with the patient if once she gets the TLSO --that if it is not tolerated it will be important for this to be communicated to the spine surgeon that was consulted (Dr. Gonzalez-)-and that she does need to follow up with [facility] regarding her injury. She complained of her knee giving out as well which could correlate with the L4 nerve root compression so this will need to be monitored at her follow up. She does have significant medical comorbidities including diabetes and pancreatic cancer and abdominal obesity, BMI 41 Time-Based Coding :: [60 min spent with patient and on the chart (including review of chart, obtaining history, exam, reviewing outside data, placing orders, documenting exam and treatment plan, and counseling patient) on [06/25/24].
[2024-06-25] MEDS: LIDOCAINE 5% PATCH 1 EACH TOP (09:11)
[2024-06-25] MEDS: SERTRALINE 50 MG TABLET 100 MG PO (09:14)
--- NOTE | 2024-06-25 11:53 | PT.IIE ---
Medical History (Last Reviewed 06/25/24 @ 07:23 by Onur Rodríguez MD) Kidney stone on left side Pancreatic cancer Physical Therapy Inpatient Evaluation/Re-Eval M1 PT/OT-IP Prior Functional Status Start: 06/25/24 11:40 Freq: NEEDED Status: Active Protocol: Document 06/25/24 11:40 KJ (Rec: 06/25/24 11:53 KJ [id number]) Medical Review Prior Functional Status Medical History Reviewed Yes Communication [place] Mobility and Gait Ambulated w/4ww indep. Occ drives. Activities of Daily Living and IADL's Indep with some ADLs. Lives in son + chace in law's house - they prepare meals and bring them to her. They also help with medications. She has a call button if she needs help. Prior Functional Level (Other details) Last friday was still able to go to the [employer] to play cards. Social History Household Members family Living Arrangements House Number of Floors (Floors) Two Floors Number of Stairs To Enter/Railing? Stays on ground floor. Family lives upstairs. Home Equipment Front Wheel Walker Employment Status Retired Additional Social History Comment Goes out to play cards with friends. M2 PT-IP Current Condition Start: 06/25/24 11:40 Freq: NEEDED Status: Active Protocol: Document 06/25/24 11:40 KJ (Rec: 06/25/24 11:53 KJ [id number]) Physical Therapy Current Condition Current Condition Evaluation Date 06/25/24 Treatment Diagnosis impaired mobility Onset Date 06/24/24 M3 PT-IP Subjective Start: 06/25/24 11:40 Freq: NEEDED Status: Active Protocol: Document 06/25/24 11:40 KJ (Rec: 06/25/24 11:53 KJ [id number]) Subjective Physical Therapy Visit Type Type Initial Evaluation Visit Start Time 10:51 Visit Stop Time 11:32 Physical Therapy Visit Comments Patient Comments Pt just returned from MRI, which was painful and difficult to transfer and lay still due to severe back pain. Pt reports she was up to BR at 3 am when her left leg started tingling and she fell, hurting her back. Patient Goals To be able to return to previous living situation with minimal assistance from family. Therapy Pain Assessment Pain When Pain Assessed During Mobility Pain Present Pain Present Pain Reported Location left hip Intensity 8 Scale Used Numeric (0 - 10) Description Acute Pain Behaviors Facial Grimacing Pain Management Techniques Distraction M4 PT-IP Mobility and Gait Start: 06/25/24 11:40 Freq: NEEDED Status: Active Protocol: Document 06/25/24 11:40 KJ (Rec: 06/25/24 11:53 KJ [id number]) PT-Bed Mobility Assessment Rolling Type of Rolling Log Rolling,Roll to Right Level of Assist Moderate Assistance Supine to Sit Supine to Sit Moderate Assistance Sit to Supine Sit to Supine Moderate Assistance Scooting Scooting to Edge of Bed Minimal Assistance Scooting Up and Down in Bed Moderate Assistance PT-Transfer Assessment Comments Mobility Comments Sat at eob w/mod assist. Did not attempt to stand due to increased pain with movement and weakness on manual muscle testing. PT-Balance Assessment Sitting Balance and Reactions Static Sitting Balance Ability Good Dynamic Sitting Balance Ability Good M5 PT-IP Objective Assessments Start: 06/25/24 11:40 Freq: NEEDED Status: Active Protocol: Document 06/25/24 11:40 KJ (Rec: 06/25/24 11:53 KJ [id number]) Orientation Orientation/Cognition Level of Alertness Alert Orientation Name,Age Language Function Ability Hard of Hearing Safety Awareness Understands Safety Issues Memory Description No Deficits Noted Gross Range of Motion Upper Extremity ROM Assessment Within Functional Limits Lower Extremity ROM Assessment Within Functional Limits Strength Upper Extremity Strength Assessment Bilaterally Impaired Shoulder 4/5 Elbow 3/5 Hand 2+/5 Lower Extremity Strength Assessment Bilaterally Impaired Hip 3/5 Knee 3/5 Ankle R 4/5, L 2/5 Coordination Assessment Gross Coordination Gross Coordination WNL M7 PT-IP Assessment and Plan Start: 06/25/24 11:40 Freq: NEEDED Status: Active Protocol: Document 06/25/24 11:40 KJ (Rec: 06/25/24 11:53 KJ [id number]) PT Summary Assessment and Plan Potential Rehabilitation Potential Good Status of Condition at Evaluation Evolving Summary Impairments Pain,Strength,Transfers,Gait, Activity Tolerance Assessment Summary Weakness all extremities + pain due to comp fx limit mobility; pt will need to have some level of indep mobility to be able to return home. Goals Bed Mobility Goal Standby Assistance Transfer Goal Standby Assistance Gait Goal Standby Assistance Gait Distance 25' Frequency of Treatment Frequency Of Treatment Once a Day Treatment Plan Physical Therapy Treatment Plan Bed Mobility Training,Transfer Training Other Recommendations and Next Treatment Recommend continuing rehab in [facility] setting to assist pt in returning to previous living situation Recommendations To Nursing Amount of Assist Needed 2 Person Assist Discharge Recommendations PT Discharge Recommendations SNF Rehab Transportation Needs at Discharge Wheelchair/Cabulance
--- NOTE | 2024-06-25 14:39 | PC.NURSE ---
Addendum entered by Nehal Jo R.N. 06/25/24 14:52: Patient given some vicodin for pain and she is resting now. Original Note: Patient admitted to room 210. She has a purewick placed as she is having a hard time getting out of bed due to much back pain from a fall. Her family is in the room and she is visiting with them.
--- NOTE | 2024-06-25 15:04 | OT.IPNOTE ---
Per hospitalist okay for OT eval as awaiting clarification, and orthro consult for orthopedic needs.
[2024-06-25] MEDS: ATORVASTATIN 20 MG TABLET 40 MG PO (20:49)
[2024-06-25] MEDS: GABAPENTIN 100 MG CAPSULE PO (20:49)
[2024-06-25] MEDS: SENNOSIDES 8.6 MG TABLET 17.2 MG PO (20:49)
[2024-06-26] MEDS: HYDROCODONE/ACET 5/325 TABLET 1 TAB PO ×5 (01:24→20:39)
[2024-06-26 04:00] VITALS: BP 155/61; PULSE 64; RESP 12; TEMP 36.2; O2SAT 95
[2024-06-26] MEDS: SERTRALINE 50 MG TABLET 100 MG PO (08:16)
[2024-06-26] MEDS: ACETAMINOPHEN 325 MG TABLET 650 MG PO ×2 (08:16→15:56)
[2024-06-26] MEDS: LIDOCAINE 5% PATCH 1 EACH TOP (08:16)
[2024-06-26] MEDS: ENOXAPARIN 40 MG/0.4 ML SYRINGE SUBCUT ×3 (08:16→20:38)
[2024-06-26] MEDS: INSULIN GLARGINE 100 UNIT/ML 3ML PEN 35 UNIT SUBCUT (08:16)
[2024-06-26] MEDS: cephALEXin 250 MG CAPSULE 500 MG PO ×3 (09:27→20:39)
[2024-06-26 09:39] VITALS: BP 156/60
[2024-06-26] MEDS: KETOROLAC 30 MG/ML VIAL 15 MG IV ×2 (11:56→23:52)
--- NOTE | 2024-06-26 11:59 | P.PN_ITS ---
Subjective Subjective Date Patient Seen: 06/26/24 Time Patient Seen: 10:40 Interval history: Narrative: The pt is a 84 yo with a known hx of pancreatic cancer and receives immunotherapy for the past 3 years who presents to the ER after a fall 3 days ago when she slid off her bed onto the floor, afterwards she has had severe pain in her lower back with occation radiation of the pain down her legs. Her left leg is weakness and more painful than the right. Found to have a compression fracture. She fell on Friday and has been struggling with lower lumbar pain and left foot burning as well as left leg weakness since Friday. She finally came in because of progressive severe pain and inability to ambulate. In the ED she was found to have an L5 compression on plain imaging. An MRI was obtained which reveals a L5 compression fracture with some retropulsion and nerve impingement. Orthopedics recommended a review by spine surgery. I reviewed her images with Dr. Gonzalez, spine surgery at [facility]. He feels the spine is stable with regard to the fracture but does recommended TLSO brace for the next several weeks. Interval history: The patient reports low back pain with movement, and left leg pain and weakness. She is seen today with her son Meet and [id number] Hilda who report that she tends to have about 3 hypoglycemic episodes weekly, typically between midnight and 4:00 a.m.. She states she does not eat many sweets or candies, but her son and [id number] state that she is a frequent consumer of numerous sugary treats throughout the day, and feel that this leads to her recurrent hypoglycemia which resulted in this fall. Her primary care provider reduced her insulin recently as result, recognizing that hyperglycemia is safer than hypoglycemia. Exam Vital Signs (past 8 hours): - 06/26/24 04:00 06/26/24 09:39 Temperature 97.2 F L Pulse Rate 64 Respiratory Rate 12 Blood Pressure 155/61 H 156/60 H Pulse Oximetry 95 Oxygen Flow Rate 0 Oxygen Delivery Method Room Air Oxygen Flow Rate 0 Narrative Exam Narrative: NAD, alert and oriented, fluent speech, calm, appears in severe pain with minimal movement in bed. Normocephalic skull, EOMI, anicteric sclera, symmetric pupils. Oropharynx unremarkable, no droop. Neck supple, midline trachea, no adenopathy. Lungs clear, normal rate and effort. Heart regular, no murmur gallop or rub. Abdomen is soft, non distended and non tender. Extremities are free of edema. Skin is free of rash or lesions. Joints are not swollen or deformed. Judgment appears to be normal except when it comes to her understatinng of her frequent consumption of sugary foods. Neurologic: Able lift the left leg off from the bed, 4/5 plantar/dorsiflexion. Objective Labs 06/25/24 01:40 06/25/24 01:40 [facility] Medical History Kidney stone on left side Pancreatic cancer Social History household members: family Smoking Status: Former smoker Assessment & Plan Assessment & Plan narrative: 1. L5 compression fracture, present on admission and active. - TLSO brace - Monitor L4 nerve root compression on the left with left leg weakness with progressive therapy, may require surgery if progressive or worsening weakness 2. DM type 2, present on admission and stable. Labile controlled due to poor dietary habits. 3. Hypertension, present on admission and active. 4. Pancreas cancer which has been controlled since 2016 with monthly treatments per Oncology. PLAN: -TLSO brace, physical therapy, non operative approach in a TLSO brace for the next several weeks unless worsening weakness -pain control with IV morphine and oral Vicodin. -dietary compliance with low-carbohydrate/sugar diet emphasized -met with the family and discuss the general plan and they expressed understanding. She will require an additional night of hospital care for severe pain and inability to move, much less stand due to severe pain. Her pain is currently uncontrolled. This supports inpatient status Quality VTE Deep Vein Thrombosis/Pulmonary Embolism Present on Admission: No PROFEE Charge codes Subsequent inpatient/observation care: [id number]
[2024-06-26] MEDS: INSULIN LISPRO 100 UNIT/ML 3ML VIAL SUBCUT (12:19)
--- NOTE | 2024-06-26 13:38 | PT.IPTN ---
Current Diagnoses Stable burst fracture of unspecified lumbar vertebra, initial encounter for closed fracture (06/25/24) Physical Therapy Treatment Note M2 PT-IP Current Condition Start: 06/25/24 11:40 Freq: NEEDED Status: Active Protocol: Document 06/25/24 11:40 KJ (Rec: 06/25/24 11:53 KJ [id number]) Physical Therapy Current Condition Current Condition Evaluation Date 06/25/24 Treatment Diagnosis impaired mobility Onset Date 06/24/24 M3 PT-IP Subjective Start: 06/25/24 11:40 Freq: NEEDED Status: Active Protocol: Document 06/26/24 14:49 TS (Rec: 06/26/24 14:53 TS [id number]) Subjective Physical Therapy Visit Type Type Treatment Note Visit Start Time 13:38 Visit Stop Time 14:18 Number of OFFICE MANAGER Visits 2 Physical Therapy Visit Comments Patient Comments Pt found resting in bed, agreeable to PT. Therapy Pain Assessment Pain When Pain Assessed During Mobility Pain Present Pain Present Pain Reported M4 PT-IP Mobility and Gait Start: 06/25/24 11:40 Freq: NEEDED Status: Active Protocol: Document 06/26/24 14:49 TS (Rec: 06/26/24 14:53 TS [id number]) PT-Bed Mobility Assessment Rolling Type of Rolling Log Rolling,Roll to Right Level of Assist Moderate Assistance Supine to Sit Supine to Sit Moderate Assistance Sit to Supine Sit to Supine Moderate Assistance Scooting Scooting to Edge of Bed Minimal Assistance Scooting Up and Down in Bed Moderate Assistance PT-Transfer Assessment Sit to and From Stand Sit to and from Stand Moderate Assistance Equipment Transfer Assistive Device Front Wheeled Walker Comments Mobility Comments TLSO brace fitted on pt sitting EOB. Logroll to R side ModA. Supine to sit MaxA for uprighting trunk. Brace fitted on pt. STS with FWW Moda. Pt ambulates ~15' in the room CGA with FWW. PT was left in the chair, all needs met. Gait Assessment Gait Gait Assistance Required: Contact Guard Assist Distance (Feet) 15 Assistive Devices Assistive Device Front Wheeled Walker Gait Deviations General Gait Pattern Decreased Stride Length, Decreased Feet Clearance Factors Limiting Gait Function Factors Limiting Gait Function Decreased Activity Tolerance, Decreased Strength,Pain,Poor Balance,Poor Safety Awareness PT-Balance Assessment Sitting Balance and Reactions Static Sitting Balance Ability Good Dynamic Sitting Balance Ability Good Standing Balance and Reactions Static Standing Balance Ability Fair Dynamic Standing Balance Ability Fair Device Used FWW M5 PT-IP Objective Assessments Start: 06/25/24 11:40 Freq: NEEDED Status: Active Protocol: Document 06/25/24 11:40 KJ (Rec: 06/25/24 11:53 KJ [id number]) Orientation Orientation/Cognition Level of Alertness Alert Orientation Name,Age Language Function Ability Hard of Hearing Safety Awareness Understands Safety Issues Memory Description No Deficits Noted Gross Range of Motion Upper Extremity ROM Assessment Within Functional Limits Lower Extremity ROM Assessment Within Functional Limits Strength Upper Extremity Strength Assessment Bilaterally Impaired Shoulder 4/5 Elbow 3/5 Hand 2+/5 Lower Extremity Strength Assessment Bilaterally Impaired Hip 3/5 Knee 3/5 Ankle R 4/5, L 2/5 Coordination Assessment Gross Coordination Gross Coordination WNL M7 PT-IP Assessment and Plan Start: 06/25/24 11:40 Freq: NEEDED Status: Active Protocol: Document 06/26/24 14:49 TS (Rec: 06/26/24 14:53 TS [id number]) PT Summary Assessment and Plan Potential Rehabilitation Potential Good Summary Impairments Pain,Strength,Transfers,Gait, Activity Tolerance Progress Towards Goals Slow Progress due to Pain Assessment Summary Pt is making slow progress with her mobility. She is requiring ModA-MaxA for most mobility. TLSO brace fitted on pt and is required while moving out of bed. She did progress to standing and gait this session. PT is recommending SNF. Goals Bed Mobility Goal Standby Assistance Transfer Goal Standby Assistance Gait Goal Standby Assistance Gait Distance 25' Frequency of Treatment Frequency Of Treatment Once a Day Treatment Plan Physical Therapy Treatment Plan Bed Mobility Training,Transfer Training Other Recommendations and Next Treatment Recommend continuing rehab in [facility] setting to assist pt in returning to previous living situation Recommendations To Nursing Amount of Assist Needed 2 Person Assist Discharge Recommendations PT Discharge Recommendations SNF Rehab Transportation Needs at Discharge Wheelchair/Cabulance
--- NOTE | 2024-06-26 15:33 | CM.DANOTE ---
DCP Assessment note pt is a 84yo F here after GLF resulted in non operable spine fracture. PCP Juan Ren Payer Medicare and [employer] FLAKER TENDER reviewed EMR. PT=SNF. 3rd midnight inpt=Friday. FLAKER TENDER entered room and introduced self and role. Met with pt in room and son Meet on speaker phone. pt lives in [place] with Meet and JOSEPHINE Zoey. Son/DIL help with meals/meds/chores at baseline. uses FWW at baseline. Pt strong preference for SNF, preferences 1) [facility] and 2) [facility]. FLAKER TENDER answered son/pt questions to best of ability. FLAKER TENDER emailed Charlene at [facility] and asked if she would be so kind as to review pt. Acceptance pending. PASRR needed. P: anticipate SNF dc once secured. If [facility] denial, [facility] ref needed. CM team will continue to follow close for coordination of DCP. YUE Jenkins Discharge Planning/Care Management CM Discharge Assessment Start: 06/26/24 15:32 Freq: Status: Active Protocol: Document 06/26/24 15:32 SL (Rec: 06/26/24 15:33 [id number]) Discharge Planning Assessment Assigned Engineering Manager Electronics YUE Randolph DPOA/Assigned Designee Name millie Dsouza Contact Information [phone] Advance Directives? Yes Advance Directives on File No History Provided By Patient,Family Member,Medical Record Prior Living Arrangements House Household Members family Independent with ADL's Yes Is patient alert and oriented? Yes Patient/Family Preference Half-Way Facility Discharge Plan Half-Way Facility Referrals Initiated Half-Way Additional Comment [facility] reviewing If patient plan is SNF: Has PASSR been No completed? SNF/HH Preference 1) [facility] 2) [facility] Has Agency SNF been contacted Yes Whiteboard Updated in Patient Room with Yes name and ext. # of Engineering Manager Electronics Review Status In Process Please Provide Date Initial DC 06/26/24 Assessment Was Performed Next Review Type Continued Stay Review
[2024-06-26 16:18] VITALS: BP 131/57; PULSE 54; RESP 18; TEMP 36.3; O2SAT 99
[2024-06-26] MEDS: ATORVASTATIN 20 MG TABLET 40 MG PO (20:39)
[2024-06-26] MEDS: GABAPENTIN 100 MG CAPSULE PO (20:39)
[2024-06-26] MEDS: SENNOSIDES 8.6 MG TABLET 17.2 MG PO (20:39)
[2024-06-27] VITALS: BP 147/60; PULSE 72; RESP 18; TEMP 36.2; O2SAT 96
[2024-06-27] MEDS: HYDROCODONE/ACET 5/325 TABLET 1 TAB PO ×3 (01:32→11:17)
[2024-06-27 07:38] VITALS: BP 170/61; PULSE 66; RESP 18; TEMP 36; O2SAT 98
[2024-06-27] MEDS: INSULIN GLARGINE 100 UNIT/ML 3ML PEN 35 UNIT SUBCUT (08:01)
[2024-06-27] MEDS: KETOROLAC 30 MG/ML VIAL 15 MG IV ×2 (08:02→19:55)
[2024-06-27] MEDS: LIDOCAINE 5% PATCH 1 EACH TOP (08:21)
[2024-06-27] MEDS: SERTRALINE 50 MG TABLET 100 MG PO (08:22)
[2024-06-27] MEDS: cephALEXin 250 MG CAPSULE 500 MG PO ×3 (08:22→19:54)
[2024-06-27] MEDS: ENOXAPARIN 40 MG/0.4 ML SYRINGE SUBCUT ×2 (08:22→19:53)
[2024-06-27] MEDS: INSULIN LISPRO 100 UNIT/ML 3ML VIAL SUBCUT ×3 (11:58→19:58)
--- NOTE | 2024-06-27 12:16 | P.PN_ITS ---
Subjective Subjective Date Patient Seen: 06/27/24 Time Patient Seen: 08:55 Interval history: Narrative: The pt is a 84 yo with a known hx of pancreatic cancer and receives immunotherapy for the past 3 years who presents to the ER after a fall 3 days ago when she slid off her bed onto the floor, afterwards she has had severe pain in her lower back with occation radiation of the pain down her legs. Her left leg is weakness and more painful than the right. Found to have a compression fracture. She fell on Friday and has been struggling with lower lumbar pain and left foot burning as well as left leg weakness since Friday. She finally came in because of progressive severe pain and inability to ambulate. In the ED she was found to have an L5 compression on plain imaging. An MRI was obtained which reveals a L5 compression fracture with some retropulsion and nerve impingement. Orthopedics recommended a review by spine surgery. I reviewed her images with Dr. Gonzalez, spine surgery at [facility]. He feels the spine is stable with regard to the fracture but does recommended TLSO brace for the next several weeks. Interval history: The patient reports low back pain is much improved with use of the TLSO brace, improved with movement, and decreased left leg pain but persistent mild weakness. Recall conversation yesterday with her son Meet and isqgyhca-rj-tze Hilda who report that she tends to have about 3 hypoglycemic episodes weekly, typically between midnight and 4:00 a.m.. She stated she does not eat many sweets or candies, but her son and kyiqmcwr-[id number] stated that she is a frequent consumer of numerous sugary treats throughout the day, and feel that this leads to her recurrent hypoglycemia which resulted in this fall. Her primary care provider reduced her Lantus insulin to 20 units nightly recently as result, recognizing that hyperglycemia is safer than hypoglycemia. BS 76 this morning after Lantus 35 units yesterday evening. Exam Vital Signs (past 8 hours): - 06/27/24 07:38 Temperature 96.8 F L Pulse Rate 66 Respiratory Rate 18 Blood Pressure 170/61 H Pulse Oximetry 98 Oxygen Flow Rate 0 Oxygen Delivery Method Room Air Oxygen Flow Rate 0 Objective Labs 06/25/24 01:40 06/25/24 01:40 [facility] Medical History Kidney stone on left side Pancreatic cancer Social History household members: family Smoking Status: Former smoker Assessment & Plan Assessment & Plan narrative: 1. L5 compression fracture, present on admission and active. - TLSO brace - Monitor L4 nerve root compression on the left with left leg weakness with progressive therapy, may require surgery if progressive or worsening weakness 2. DM type 2, present on admission and stable. Labile controlled due to poor dietary habits. Decrease Lantus to 30 units nightly noting mild hypoglycemia this morning. Emphasized low-sugar diet. 3. Hypertension, present on admission and active. 4. Pancreas cancer which has been controlled since 2016 with monthly treatments per Oncology. PLAN: -TLSO brace, physical therapy, non operative approach in a TLSO brace for the next several weeks unless worsening weakness -pain control with IV morphine and oral Vicodin. -dietary compliance with low-carbohydrate/sugar diet emphasized -decrease Lantus to 30 units nightly. -met with the family on 06/26 and discussed the general plan and they expressed understanding. She will require an additional night of hospital care for severe pain and inability to move, much less stand due to severe pain. Her pain is currently uncontrolled. This supports inpatient status [facility]: [facility] 06/28 Quality VTE Deep Vein Thrombosis/Pulmonary Embolism Present on Admission: No IH PROFEE Charge codes Subsequent inpatient/observation care: [id number]
--- NOTE | 2024-06-27 13:23 | PT.IPTN ---
Current Diagnoses Stable burst fracture of unspecified lumbar vertebra, initial encounter for closed fracture (06/25/24) Physical Therapy Treatment Note M2 PT-IP Current Condition Start: 06/25/24 11:40 Freq: NEEDED Status: Active Protocol: Document 06/25/24 11:40 KJ (Rec: 06/25/24 11:53 KJ [id number]) Physical Therapy Current Condition Current Condition Evaluation Date 06/25/24 Treatment Diagnosis impaired mobility Onset Date 06/24/24 M3 PT-IP Subjective Start: 06/25/24 11:40 Freq: NEEDED Status: Active Protocol: Document 06/27/24 12:41 MB (Rec: 06/27/24 13:23 MB [id number]) Subjective Physical Therapy Visit Type Type Treatment Note Visit Start Time 12:41 Visit Stop Time 13:04 Number of INSURANCE INVESTIGATOR Visits 3 Physical Therapy Visit Comments Patient Comments Pt supine in bed and wishing to use BSC for BM. MANAGER OF PLANNING and PT assist pt. Therapy Pain Assessment Pain When Pain Assessed During Mobility Pain Present Pain Present Pain Reported Location left hip Intensity 8 M4 PT-IP Mobility and Gait Start: 06/25/24 11:40 Freq: NEEDED Status: Active Protocol: Document 06/27/24 12:41 MB (Rec: 06/27/24 13:23 MB [id number]) PT-Bed Mobility Assessment Rolling Type of Rolling Log Rolling,Roll to Right Supine to Sit Supine to Sit Moderate Assistance Scooting Scooting to Edge of Bed Contact Guard Assistance PT-Transfer Assessment Sit to and From Stand Sit to and from Stand Minimal Assistance,1 Person Assistance,Use of Upper Extremities Equipment Transfer Assistive Device Gait Belt,Front Wheeled Walker Orthotic/Prosthetic Devices or Brace: No Transfers Transfer Destination Bedside Commode Transfer Technique Stepping Transfer Ability Level of Assist Minimal Assistance,1 Person Assistance,Use of Upper Extremities Comments Mobility Comments Cues for hand placement as pt tends to reach for walker. Did not don TLSO d/t need for BSC and BM and then donned once standing from BSC to gait to chair and left on in chair with shoulder straps unclipped . Pt requires dependent assistance to don TLSO. Pt requires dependent assistance from MANAGER OF PLANNING for hygiene after toileting. Gait Assessment Gait Gait Assistance Required: Contact Guard Assist,1 Person Assist Distance (Feet) 20 Assistive Devices Assistive Device Gait Belt,Front Wheeled Walker Gait Deviations General Gait Pattern Antalgic,Decreased Stride Length,Decreased Feet Clearance,Flexed Trunk,Wide Based Gait Factors Limiting Gait Function Factors Limiting Gait Function Decreased Activity Tolerance, Decreased Strength,Difficulty Following Directions,Limited Range of Motion,Pain,Poor Balance,Poor Safety Awareness PT-Balance Assessment Sitting Balance and Reactions Static Sitting Balance Ability Good Dynamic Sitting Balance Ability Good Standing Balance and Reactions Static Standing Balance Ability Fair Dynamic Standing Balance Ability Fair Device Used RW M5 PT-IP Objective Assessments Start: 06/25/24 11:40 Freq: NEEDED Status: Active Protocol: Document 06/25/24 11:40 KJ (Rec: 06/25/24 11:53 KJ [id number]) Orientation Orientation/Cognition Level of Alertness Alert Orientation Name,Age Language Function Ability Hard of Hearing Safety Awareness Understands Safety Issues Memory Description No Deficits Noted Gross Range of Motion Upper Extremity ROM Assessment Within Functional Limits Lower Extremity ROM Assessment Within Functional Limits Strength Upper Extremity Strength Assessment Bilaterally Impaired Shoulder 4/5 Elbow 3/5 Hand 2+/5 Lower Extremity Strength Assessment Bilaterally Impaired Hip 3/5 Knee 3/5 Ankle R 4/5, L 2/5 Coordination Assessment Gross Coordination Gross Coordination WNL M7 PT-IP Assessment and Plan Start: 06/25/24 11:40 Freq: NEEDED Status: Active Protocol: Document 06/27/24 12:41 MB (Rec: 06/27/24 13:23 MB [id number]) PT Summary Assessment and Plan Potential Rehabilitation Potential Good Status of Condition at Evaluation Evolving Summary Impairments Pain,ROM,Strength,Balance,Bed Mobility,Transfers,Gait, Activity Tolerance Progress Towards Goals Progressing Toward Goals Assessment Summary Pt requires encouragement and cues for log rolling, dependent assistance to don TLSO which does seem to help pain, and cues for hand placement for transfers. Pain is a barrier to mobility. Goals Bed Mobility Goal Independent Transfer Goal Independent,Front Wheeled Walker Gait Goal Independent,Front Wheel Walker Gait Distance 100 Other Goals Pt will recall 3/3 back precautions to protect L5 fracture. Pt will don TLSO with no more than min A. Days to Meet Goals 5 Frequency of Treatment Frequency Of Treatment Once a Day Treatment Plan Physical Therapy Treatment Plan Bed Mobility Training,Transfer Training,Gait Training, Therapeutic Exercise,Balance Retraining,Discharge Planning, Neuromuscular Re-ed, Coordination Retraining,Manual Therapy Precautions Lumbar Precautions Log Roll,No Twisting,Limit Bending,Lifting Restriction of 10 lbs,Gait Belt above Incisional Area Recommendations To Nursing Amount of Assist Needed 1 Person Assist Discharge Recommendations PT Discharge Recommendations SNF Rehab Transportation Needs at Discharge Wheelchair/Cabulance
--- NOTE | 2024-06-27 14:28 | CM.DPNOTE ---
DCP Cont SNF recommended at discharge and patient/family agreeable. [facility] accepts, however, in order to admit to SNF patient will need to miss her monthly immunotherapy infusion (roughly $18,000 per infusion according to DIL). Updated family with above info and DIL Jayde feels strongly that she needs to review this with patient's Oncologist Friday. CM team following closely for coordination of discharge plan with patient, her family and with [facility]. Hospital exempt PASRR completed and signed. JW
[2024-06-27] MEDS: OXYCODONE/ACETAMINOPHEN 5/325 TABLET 1 TAB PO (18:36)
[2024-06-27 19:13] VITALS: BP 143/49; PULSE 72; RESP 19; TEMP 36.2; O2SAT 99
[2024-06-27] MEDS: SENNOSIDES 8.6 MG TABLET 17.2 MG PO (19:54)
[2024-06-27] MEDS: GABAPENTIN 100 MG CAPSULE PO (19:54)
[2024-06-27] MEDS: ATORVASTATIN 20 MG TABLET 40 MG PO (19:54)
[2024-06-28] MEDS: OXYCODONE/ACETAMINOPHEN 5/325 TABLET 1 TAB PO ×5 (01:36→23:35)
[2024-06-28] MEDS: KETOROLAC 30 MG/ML VIAL 15 MG IV ×2 (03:00→20:09)
[2024-06-28 06:54] VITALS: BP 153/48; PULSE 62; RESP 18; TEMP 35.7; O2SAT 97
--- NOTE | 2024-06-28 07:44 | P.DS_ITS ---
History of Present Illness History of Present Illness Chief complaint: lt sided fall. unable to walk Narrative: From night doctor: The pt is a 84 yo with a known hx of pancreatic cancer and receives immunotherapy for the past 3 years who presents to the ER after a fall 3 days ago when she slid off her bed onto the floor, afterwards she has had severe pain in her lower back with occation radiation of the pain down her legs. Her left leg is weakness and more painful than the right. Found to have a compression fracture. S: She fell on Friday and has been struggling with lower lumbar pain and left foot burning as well as left leg weakness since Friday. She finally came in because of progressive severe pain and inability to ambulate. In the ED she was found to have an L5 compression on plain imaging. An MRI was obtained which reveals a L5 compression fracture with some retropulsion and nerve impingement. Orthopedics recommended a review by spine surgery. I reviewed her images with Dr. Gonzalez, spine surgery at [facility]. He feels the spine is stable with regard to the fracture but does recommended TLSO brace for the next several weeks. Discharge Providers Provider Date of admission: 06/25/24 01:42 Primary care physician: Juan Ren MD Consults: 06/25/24 01:30 Consult to Orthopedic Surgery Stat Comment: Consulting Provider: Reema Bedolla Reason for consultation: [id number] Has provider been notified: Yes 06/25/24 01:58 Consult to Occupational Therapy Evaluate & Treat Comment: Physician Instructions: Evaluate and treat Consult to Physical Therapy Evaluate & Treat Comment: Physician Instructions: Evaluate and Treat Discharge provider: Onur Rodríguez MD Summary Hospital Course Discharge Diagnosis: 1. L5 compression fracture, present on admission and active. - TLSO brace - Monitor L4 nerve root compression on the left with left leg weakness with progressive therapy, may require surgery if progressive or worsening weakness 2. DM type 2, present on admission and stable. Labile controlled due to poor dietary habits. Decrease Lantus to 30 units nightly noting mild hypoglycemia this morning. Emphasized low-sugar diet. 3. Hypertension, present on admission and active. 4. Pancreas cancer which has been controlled since 2016 with monthly treatments per Oncology. Hospital Course: Course: The patient reports low back pain is much improved with use of the TLSO brace, improved with movement, and decreased left leg pain but persistent mild weakness. Recall conversation yesterday with her son Meet and [id number] Hilda who report that she tends to have about 3 hypoglycemic episodes weekly, typically between midnight and 4:00 a.m.. She stated she does not eat many sweets or candies, but her son and [id number] stated that she is a frequent consumer of numerous sugary treats throughout the day, and feel that this leads to her recurrent hypoglycemia which resulted in this fall. Her primary care provider reduced her Lantus insulin to 20 units nightly recently as result, recognizing that hyperglycemia is safer than hypoglycemia. BS 76 this morning after Lantus 35 units yesterday evening. Status at Discharge Cognitive/behavioral status at discharge: oriented Functional status at discharge: uses cane/walker Overall status at discharge: patient is progressing back to baseline Time Spent with Patient Time spent: Greater than 30 minutes Exam Vital Signs (past 8 hours): - 06/28/24 06:54 Temperature 96.2 F L Pulse Rate 62 Respiratory Rate 18 Blood Pressure 153/48 H Pulse Oximetry 97 Oxygen Flow Rate 0 Oxygen Delivery Method Room Air Oxygen Flow Rate 0 Narrative Exam Narrative: NAD, alert and oriented. Fluent speech. Lungs are clear, normal rate and effort. Heart is regular, no murmur gallop or rub. Abdomen is soft, non distended. Extremities are free of edema. Objective Imaging Multiple studies:: Radiologist's impression: Pelvis CT: No acute pelvic fractures. Redemonstration of L5 compression deformity as described on dedicated lumbar spine CT. LS spine CT: Compression deformity of the L5 vertebral body with approximately 50 percent height loss is new compared to 04/01/2024. There is mild retropulsion resulting in at least mild central canal stenosis. Redemonstration of pancreatic head mass which is not well evaluated on this noncontrast exam. Please see above for additional findings. Hip x-ray: No acute osseous abnormality. If pain persists with conservative management, consider repeat x-ray in 10-14 days or cross-sectional imaging. MRI LS: Paraspinous Soft Tissues: No paravertebral masses. T12-L1: Normal appearance. L1-L2: Normal appearance. L2-L3: Mild loss of disc height is seen. Loss of disc signal is seen. Mild to moderate disc bulge is seen, which is eccentric to the right. Mild facet joint hypertrophy is seen. Moderate bilateral neural foraminal narrowing is seen, right worse than left. Minimal central canal narrowing is seen. L3-L4: The disc height is well-preserved. Loss of disc signal is seen at this level. Mild to moderate disc bulge is seen, with a central disc protrusion. Moderate facet joint hypertrophy is seen. There is [id number] right-sided and moderate left-sided neural foraminal narrowing. Mild central canal narrowing is seen. L4-L5: The disc height is well-preserved. Loss of disc signal is seen at this level. Moderate disc bulge is seen, with a mild central disc protrusion. Prominent facet hypertrophy is seen, left worse than right. There is moderate right-sided and moderate to severe left-sided neural foraminal narrowing. There is a degree of compression seen upon the exiting left L4 nerve root. At least moderate central canal narrowing is seen. L5-S1: The disc height is well-preserved. Loss of disc signal is seen at this level. Mild generalized disc bulge is seen. Moderate facet joint hypertrophy is seen. There is moderate left-sided and no significant right-sided neural foraminal narrowing. No significant central canal narrowing is seen. IMPRESSION: As previously demonstrated, there is an acute L5 fracture, with posterior displacement of fracture fragments. Multiple levels of underlying degenerative change are seen, which are overall worst at the L4-L5 level. Labs 06/25/24 01:40 06/25/24 01:40 [facility] Medical History Kidney stone on left side Pancreatic cancer Social History household members: family Smoking Status: Former smoker Discharge Assessment & Plan Assessment and Plan Assessment: 1. L5 compression fracture, present on admission and active. - TLSO brace - Monitor L4 nerve root compression on the left with left leg weakness with progressive therapy, may require surgery if progressive or worsening weakness Plan of Treatment: Discharge to shelter facility for ongoing rehabilitative efforts today. Discharge Plan Discharge Plan Patient Disposition: SNF Transfer to: [facility] and [facility] Discharge orders & Medications Prescriptions: No Action atorvastatin 40 mg tablet 40 mg PO DAILY lisinopril 20 mg Tablet 20 mg PO DAILY sertraline 100 mg Tablet 100 mg PO DAILY diphenoxylate-atropine 2.5-0.025 mg tablet 2 tab Q4HR MDD 8 PRN (Reason: Diarrhea) Patient Comments: TAKE TWO TABLETS BY MOUTH EVERY FOUR HOURS NEEDED FOR DIARRHEA, UPTO 8 TABLETS PER DAY omeprazole 20 mg capsule,delayed release(DR/EC) 20 mg PO BID insulin aspart U-100 [Novolog FlexPen U-100 Insulin] 100 unit/mL (3 mL) insulin pen See Rx Instructions .ROUTE .COMPLEX Rx Instructions: unit subcutaneously ;based on carbs 13-16 solifenacin 10 mg tablet 10 mg PO DAILY potassium chloride 8 mEq capsule, extended release 8 meq PO DAILY torsemide 10 mg tablet 10 mg PO DAILY gabapentin 100 mg capsule 100 mg PO ONCE PM colchicine 0.6 mg tablet 0.6 mg PO DAILY insulin glargine [Lantus Solostar U-100 Insulin] 100 unit/mL (3 mL) insulin pen See Rx Instructions .ROUTE .COMPLEX Patient Comments: Inject 46 units subcutaneously daily in the morning and inject 18 units nightly in the evening Rx Instructions: unit subcutaneously Follow up/Referrals: Juan Ren MD [Primary Care Provider] - Visit Report/Discharge Packet Stand Alone Forms: Patient Portal/API Discharge Data Primary Care Provider: Juan Ren Quality VTE Deep Vein Thrombosis/Pulmonary Embolism Present on Admission: No
[2024-06-28] MEDS: ENOXAPARIN 40 MG/0.4 ML SYRINGE SUBCUT ×2 (08:39→20:09)
[2024-06-28] MEDS: ACETAMINOPHEN 325 MG TABLET 650 MG PO (08:39)
[2024-06-28] MEDS: cephALEXin 250 MG CAPSULE 500 MG PO ×3 (08:39→20:08)
[2024-06-28] MEDS: SERTRALINE 50 MG TABLET 100 MG PO (08:39)
[2024-06-28] MEDS: INSULIN GLARGINE 100 UNIT/ML 3ML PEN 35 UNIT SUBCUT (08:40)
[2024-06-28] MEDS: INSULIN LISPRO 100 UNIT/ML 3ML VIAL SUBCUT ×3 (08:41→15:48)
[2024-06-28] MEDS: LIDOCAINE 5% PATCH 1 EACH TOP (08:42)
[2024-06-28 12:00] VITALS: BP 159/64; PULSE 71; RESP 24; TEMP 36; O2SAT 99
--- NOTE | 2024-06-28 13:34 | OT.IP.EVAL ---
Current Diagnoses Stable burst fracture of unspecified lumbar vertebra, initial encounter for closed fracture (06/25/24) Past Medical History (Last Reviewed 06/28/24 @ 07:46 by Onur Rodríguez MD) Kidney stone on left side Pancreatic cancer Occupational Therapy Inpatient Evaluation/Re-Eval M1 PT/OT-IP Prior Functional Status Start: 06/25/24 11:40 Freq: NEEDED Status: Active Protocol: Document 06/28/24 13:43 CGR (Rec: 06/28/24 14:02 CGR [id number]) Medical Review Prior Functional Status Medical History Reviewed Yes Communication RAMPART Mobility and Gait Ambulated w/4ww indep. Occ drives. Activities of Daily Living and IADL's Indep with some ADLs. Lives in son + chace in law's house - they prepare meals and bring them to her. They also help with medications. She has a call button if she needs help. Prior Functional Level (Other details) Last friday was still able to go to the [employer] to play cards. Social History Household Members family Living Arrangements House Number of Floors (Floors) Two Floors Number of Stairs To Enter/Railing? Stays on ground floor. Family lives upstairs. Home Environment Standard Height Toilet,Walk in Shower Home Equipment Four Wheel Walker,Raised Toilet Seat Without Armrests, Hand Held Shower,Grab Bars In Shower Employment Status Retired Additional Social History Comment Goes out to play cards with friends. M2 OT-IP Current Condition Start: 06/28/24 13:43 Freq: Status: Active Protocol: Document 06/28/24 13:43 CGR (Rec: 06/28/24 14:02 CGR [id number]) Occupational Therapy Current Condition Current Condition Evaluation Date 06/28/24 Treatment Diagnosis L5 burst fx Diagnosis Onset Date 06/25/24 Post Operative Precautions Lumbar Precautions Log Roll,No Twisting,Limit Bending,Lifting Restriction of 10 lbs,Gait Belt above Incisional Area Other Precautions Mobility with TLSO for comfort M3 OT- IP Subjective and Pain Start: 06/28/24 13:43 Freq: Status: Active Protocol: Document 06/28/24 13:43 CGR (Rec: 06/28/24 14:02 CGR [id number]) OT- Subjective Occupational Therapy Visit Type Type Initial Evaluation Visit Start Time 13:12 Visit Stop Time 13:34 Notes Pt agreeable to getting up to bathroom. OT Pain Assessment Pain When Pain Assessed At Rest Pain Present Pain Present Pain Reported Location Left Back Intensity 7 Scale Used Numeric (0 - 10) Pain Behaviors Guarding Management Techniques Distraction,Modification of Treatment,Re-positioning M4 OT- IP ADL's Start: 06/28/24 13:43 Freq: Status: Active Protocol: Document 06/28/24 13:43 CGR (Rec: 06/28/24 14:02 CGR [id number]) OT [id number] Comments OT Self-Feeding Comments Pt has already completed lunch . Per pt, she feeds IND. OT ADL-Grooming Comments OT Grooming Comments Pt declined. OT ADL-Oral Care Comments Oral Care Comments Pt declined. OT ADL-Dressing General Eval Upper Body Dressing Ability Total Assistance Lower Body Dressing Ability Total Assistance Areas Needing Assistance Socks Comments OT Dressing Comments Total assist for socks and for tightening TLSO. OT ADL-Toileting General Evaluation Toileting Ability Minimal Assistance,Moderate Assistance Areas Needing Assistance Manage Clothing,Perform Perineal Hygiene Comments OT Toileting Comments Pt pulled down brief but then needed assist after toileting for cleaning and pulling brief back up. OT ADL-Bathing Comments OT Bathing Comments not performed, pt states she performed shower this AM M5 OT- IP IADL's Start: 06/28/24 13:43 Freq: Status: Active Protocol: Document 06/28/24 13:43 CGR (Rec: 06/28/24 14:02 CGR [id number]) OT-Instrumental Activities of Daily Living Deficits IADL Deficits Identified No Deficits Home Safety Awareness Awareness of Need for Assistance at Home Good Awareness Ability to Problem Solve Emergency Able to Problem Solve Situations Medication Management Medication Management Caregiver Administers Money Management Money Management Caregiver Provides Assistance Meal Preparation Meal Preparation Caregiver Provides Assist Community Youth Secretary Community Youth Secretary Caregiver Provides Assist Driving Driving Comments Pt drives in [place] only. M6 OT- IP Functional Cognition Start: 06/28/24 13:43 Freq: Status: Active Protocol: Document 06/28/24 13:43 CGR (Rec: 06/28/24 14:02 CGR [id number]) Cognitive Factors Limiting Selfcare Function Cognitive Ability Level of Alertness Alert Patient Orientation Name,Age,Birthday,Month,Date, Year,Day of Week,Place, Situation Attention Span Ability Capable of Focused Attention, Capable of Sustained Attention Ability to Follow Commands Able to Follow One Step Commands with Increased Time, Able to Follow One Step Commands with Repetition OT- Vision and Hearing OT- Hearing Assessment OT- Hearing Assessment Hearing Impaired,Use of Hearing Aids OT- Vision Assessment Visual Acuity Glasses All The Time Visual Attentiveness WFL Occular Pursuits WFL Visual Convergence WFL M7 OT- IP Mobility and Balance Start: 06/28/24 13:43 Freq: Status: Active Protocol: Document 06/28/24 13:43 CGR (Rec: 06/28/24 14:02 CGR [id number]) OT-Transfer Assessment Sit to and From Stand Sit to and from Stand Minimal Assistance Transfers Transfer Ability Minimal Assistance Technique Transfer Destination Chair,Toilet Transfer Technique Stand Step Pivot Devices Transfer Assistive Devices Gait Belt,Front Wheeled Walker Comments Mobility Comments Pt stood from chair with min a and ambulated to toilet for urination then returned to chair afterwards. Pt with dyspnea at end of session with limited mobility. OT- Gait Assessment Gait Gait Assistance Required: Minimum Assistance Assistive Devices Assistive Device Gait Belt,Front Wheeled Walker Comments Gait Ability Comments mobility in room. OT- Balance Assessment Sitting Balance and Reactions Static Sitting Balance Ability Good Dynamic Sitting Balance Ability Good M8 OT- IP Objective Assessments Start: 06/28/24 13:43 Freq: Status: Active Protocol: Document 06/28/24 13:43 CGR (Rec: 06/28/24 14:02 CGR [id number]) OT Gross Range of Motion Upper Extremity Range of Motion Assessment Within Functional Limits OT Strength Upper Extremity Strength Assessment Within Functional Limits Comments Strength Comments Pt had difficulty performing strength to B arms at the same time, but individually pt is grossly 4-/5. OT- Coordination Assessment Upper Extremity Finger to Nose Test Within Functional Limits Finger Tapping Test Within Functional Limits OT-Muscle Tone Assessment Muscle Tone WNL Yes OT Sensation Assessment Edema Edema Absent M9 OT- IP Assessment and Plan Start: 06/28/24 13:43 Freq: Status: Active Protocol: Document 06/28/24 13:43 CGR (Rec: 06/28/24 14:02 CGR [id number]) OT Summary Assessment and Plan Potential Rehabilitation Potential Good Analytic Complexity at Evaluation Moderate Summary OT Impairments Pain,Balance,Functional Mobility,Grooming,Dressing, Toileting,Bathing,Toilet Transfers,Shower Transfers, Activity Tolerance Progress Towards Goals Slow Progress due to Pain Assessment Summary Pt presents as a moderate complexity evaluation s/p admit with L5 burst fx. Per consult, pt is to wear TLSO and follow up as an outpatient . Pt currently is needing min a for mobility and max to total for dressing LB and TLSO . Pt will benefit from SNF to improve independence and endurance before returning home. Pt will continue to benefit from OT services while hospitalized. Goals Grooming Goal Independent Dressing Goal Independent Toileting Goal Independent Bathing Goal Independent Toilet Transfer Goal Independent Shower Transfer Goal Independent Days to Meet Goals 15 Frequency of Treatment Other frequency 5x a week Treatment Plan OT Treatment Plan ADL Training,Functional Mobility,Patient/Family Education,Discharge Planning Other Treatment Recommendations and Next LB dressing with DME Treatment Focus Discharge Recommendations OT Discharge Recommendations SNF Rehab Transportation Needs at Discharge Private Vehicle,Wheelchair/ Cabulance
--- NOTE | 2024-06-28 13:41 | PT-IP ANOTE ---
PT enters at the end of OT treatment to assist pt with further gait and she declines d/t fatigue. Pt left up in chair and answered questions about brace, etc. Pt to d/c to SNF tomorrow.
--- NOTE | 2024-06-28 14:23 | P.PN_ITS ---
Subjective Subjective Interval history: She is doing much better with her TLSO. S: She was very good pain control with her TLSO brace. She denies any nausea or dyspnea. She does have some numbness down the back of her left leg and a footdrop on the left leg. She was able to ambulate with a walker. She was scheduled to go to [facility] tomorrow. Exam Vital Signs (past 8 hours): - 06/28/24 06:54 06/28/24 12:00 Temperature 96.2 F L 96.8 F L Pulse Rate 62 71 Respiratory Rate 18 24 Blood Pressure 153/48 H 159/64 H Pulse Oximetry 97 99 Oxygen Flow Rate 0 0 Oxygen Delivery Method Room Air Oxygen Flow Rate 0 Narrative Exam Narrative: NAD, alert and oriented. Fluent speech. Lungs are clear, normal rate and effort. Heart is regular, no murmur gallop or rub. Abdomen is soft, non distended. Extremities are free of edema. Objective Labs 06/25/24 01:40 06/25/24 01:40 [facility] Medical History Kidney stone on left side Pancreatic cancer Social History household members: family Smoking Status: Former smoker Assessment & Plan Assessment & Plan narrative: 1. L5 compression fracture, present on admission and active. - TLSO brace - Monitor L4 nerve root compression on the left with left leg weakness with progressive therapy, may require surgery if progressive or worsening weakness 2. DM type 2, present on admission and stable. Labile controlled due to poor dietary habits. Decrease Lantus to 30 units nightly noting mild hypoglycemia this morning. Emphasized low-sugar diet. 3. Hypertension, present on admission and active. 4. Pancreas cancer which has been controlled since 2016 with monthly treatments per Oncology. PLAN: -pain control with oral agents. -continue back brace. -physical therapy. -resume continuous blood glucose monitoring system. -snf facility on June 29. NOTE: She will be able to take a break from her ongoing chemotherapy for pancreatic cancer for least 1 month, very likely 2 months to allow time for her nursing facility rehabilitation. Time-Based Coding :: [TOTAL MINUTES] spent with patient and on the chart (including review of chart, obtaining history, exam, reviewing outside data, placing orders, documenting exam and treatment plan, and counseling patient) on [DATE]. Quality VTE Deep Vein Thrombosis/Pulmonary Embolism Present on Admission: No
--- NOTE | 2024-06-28 15:06 | CM.DPNOTE ---
Addendum entered by YUE Jenkins 06/28/24 15:32: Per Divina at Dr. Woodward's office, Dr. Woodward gave verbal order for pt to miss one dose. Will continue to be in contact with family to re-evaluate in two weeks. BUGGY RUNNER updated provider and asked if he would put that updated information in his PN re: missing dose verbal order approval. Provider in agreement. BUGGY RUNNER met with pt, son, and DIL in room. updated on Dr. Woodward's message. in agreement with plan and express understanding cannot have injection at [facility]. asked if pt could have her [employer] tirso 3 CGM system while at (does not like to have finger pricked anymore/fingers during blue). has all necessary pump/monitoring equipment with them in room. BUGGY RUNNER updated Charlene at that pt can miss one dose and pt/family/provider in agreement with plan. Asked about CGM tirso system. Charlene unsure, plans to ask team and get back to this BUGGY RUNNER. P: anticipate dc to tomorrow 06/29, time pending. waiting on updates from re: CGM. PASRR completed. CM team will continue to follow closely YUE Jenkins Original Note: DCP note BUGGY RUNNER reviewed EMR. per hospitalist in morning rounds, pt medically stable to dc to when arranged. Per Charlene at , can accept pt if pt/family agree to pause pt's monthly immunotherapy injection while at [facility]. Asked for our hospitalist to include that information in his PN approval to withhold the injection. Per pt, willing to do whatever oncologist recommends. acknowledges understanding that she cannot get injection while at [facility]. oncologist=Dr. Woodward, [facility]. Per JOSEPHINE Greer, (p [phone]) reports she has multiple messages out to onc office. DIL in agreement with and reports understanding to hold treatments while at [facility], just wants confirmation from oncologist that this would not be detrimental to pt's oil heaterman health. BUGGY RUNNER spoke with staff at [facility] oncology (p [phone]). provided them with hospitalist's contact information for oncologist to confirm plan. Staff plans to call this BUGGY RUNNER back with updates and will pass along question to Dr. Woodward. P: anticipate dc to [facility] tomorrow 06/29, time pending. waiting on updates from oncologist. PASRR completed. CM team will continue to follow closely YUE Jenkins
[2024-06-28] MEDS: CYCLOBENZAPRINE 10 MG TABLET 5 MG PO (15:47)
[2024-06-28 20:00] VITALS: BP 122/40; PULSE 69; RESP 18; TEMP 36.6; O2SAT 96
[2024-06-28] MEDS: ATORVASTATIN 20 MG TABLET 40 MG PO (20:08)
[2024-06-28] MEDS: GABAPENTIN 100 MG CAPSULE PO (20:09)
[2024-06-28] MEDS: SENNOSIDES 8.6 MG TABLET 17.2 MG PO (20:09)
[2024-06-29] MEDS: OXYCODONE/ACETAMINOPHEN 5/325 TABLET 1 TAB PO ×3 (03:15→12:01)
[2024-06-29 04:09] VITALS: BP 145/52; PULSE 67; RESP 16; TEMP 36.6; O2SAT 97
[2024-06-29] MEDS: CYCLOBENZAPRINE 10 MG TABLET 5 MG PO (04:47)
--- NOTE | 2024-06-29 07:41 | PM.DS.1 ---
History of Present Illness History of Present Illness Chief complaint: lt sided fall. unable to walk Narrative: From H&P: The pt is a 84 yo with a known hx of pancreatic cancer and receives immunotherapy for the past 3 years who presents to the ER after a fall 3 days ago when she slid off her bed onto the floor, afterwards she has had severe pain in her lower back with occation radiation of the pain down her legs. Her left leg is weakness and more painful than the right. Found to have a compression fracture. S: She fell on Friday and has been struggling with lower lumbar pain and left foot burning as well as left leg weakness since Friday. She finally came in because of progressive severe pain and inability to ambulate. In the ED she was found to have an L5 compression on plain imaging. An MRI was obtained which reveals a L5 compression fracture with some retropulsion and nerve impingement. Orthopedics recommended a review by spine surgery. I reviewed her images with Dr. Gonzalez, spine surgery at [facility]. He feels the spine is stable with regard to the fracture but does recommended TLSO brace for the next several weeks. Discharge Providers Provider Date of admission: 06/25/24 01:42 Discharge Date: 06/29/24 Primary care physician: Juan Ren MD Consults: 06/25/24 01:30 Consult to Orthopedic Surgery Stat Comment: Consulting Provider: Reema Bedolla Reason for consultation: [id number] Has provider been notified: Yes 06/25/24 01:58 Consult to Occupational Therapy Evaluate & Treat Comment: Physician Instructions: Evaluate and treat Consult to Physical Therapy Evaluate & Treat Comment: Physician Instructions: Evaluate and Treat Discharge provider: Onur Rodríguez MD Summary Hospital Course Discharge Diagnosis: 1. L5 compression fracture, present on admission and active. - TLSO brace - Monitor L4 nerve root compression on the left with left leg weakness with progressive therapy, may require surgery if progressive or worsening weakness 2. DM type 2, present on admission and stable. Labile controlled due to poor dietary habits. Decrease Lantus to 30 units nightly noting mild hypoglycemia this morning. Emphasized low-sugar diet. 3. Hypertension, present on admission and active. 4. Pancreas cancer which has been controlled since 2016 with monthly treatments per Oncology. Hospital Course: She was admitted for pain control. Images were reviewed with spine surgeon, Dr. Gonzalez, at [facility]. [place] the fracture was stable, and recommended a TLSO brace for several weeks. The patient did have 1 applied and had good improvement of pain. This was in combination with the lidocaine patch and oral pain medications. She was felt to be stable for transition to rehabilitation facility. Status at Discharge Cognitive/behavioral status at discharge: oriented Functional status at discharge: uses cane/walker Overall status at discharge: patient is progressing back to baseline Time Spent with Patient Time spent: Greater than 30 minutes Exam Vital Signs (past 8 hours): - 06/29/24 04:09 Temperature 97.9 F Pulse Rate 67 Respiratory Rate 16 Blood Pressure 145/52 H Pulse Oximetry 97 Oxygen Delivery Method Room Air Oxygen Flow Rate 0 Narrative Exam Narrative: NAD, alert and oriented. Fluent speech. Lungs are clear, normal rate and effort. Heart is regular, no murmur gallop or rub. Abdomen is soft, non distended. Extremities are free of edema. Objective Imaging Multiple studies:: Radiologist's impression: Pelvis CT: No acute pelvic fractures. Redemonstration of L5 compression deformity as described on dedicated lumbar spine CT. LS spine CT: Compression deformity of the L5 vertebral body with approximately 50 percent height loss is new compared to 04/01/2024. There is mild retropulsion resulting in at least mild central canal stenosis. Redemonstration of pancreatic head mass which is not well evaluated on this noncontrast exam. Please see above for additional findings. Hip x-ray: No acute osseous abnormality. If pain persists with conservative management, consider repeat x-ray in 10-14 days or cross-sectional imaging. MRI LS: Paraspinous Soft Tissues: No paravertebral masses. T12-L1: Normal appearance. L1-L2: Normal appearance. L2-L3: Mild loss of disc height is seen. Loss of disc signal is seen. Mild to moderate disc bulge is seen, which is eccentric to the right. Mild facet joint hypertrophy is seen. Moderate bilateral neural foraminal narrowing is seen, right worse than left. Minimal central canal narrowing is seen. L3-L4: The disc height is well-preserved. Loss of disc signal is seen at this level. Mild to moderate disc bulge is seen, with a central disc protrusion. Moderate facet joint hypertrophy is seen. There is [id number] right-sided and moderate left-sided neural foraminal narrowing. Mild central canal narrowing is seen. L4-L5: The disc height is well-preserved. Loss of disc signal is seen at this level. Moderate disc bulge is seen, with a mild central disc protrusion. Prominent facet hypertrophy is seen, left worse than right. There is moderate right-sided and moderate to severe left-sided neural foraminal narrowing. There is a degree of compression seen upon the exiting left L4 nerve root. At least moderate central canal narrowing is seen. L5-S1: The disc height is well-preserved. Loss of disc signal is seen at this level. Mild generalized disc bulge is seen. Moderate facet joint hypertrophy is seen. There is moderate left-sided and no significant right-sided neural foraminal narrowing. No significant central canal narrowing is seen. IMPRESSION: As previously demonstrated, there is an acute L5 fracture, with posterior displacement of fracture fragments. Multiple levels of underlying degenerative change are seen, which are overall worst at the L4-L5 level. Labs 06/25/24 01:40 06/25/24 01:40 [facility] Medical History Kidney stone on left side Pancreatic cancer Social History household members: family Smoking Status: Former smoker Discharge Assessment & Plan Assessment and Plan Assessment: 1. L5 compression fracture, present on admission and active. - TLSO brace - Monitor L4 nerve root compression on the left with left leg weakness with progressive therapy, may require surgery if progressive or worsening weakness Plan of Treatment: Discharge to snf facility for ongoing rehabilitative efforts today. Discharge Plan Discharge Plan Patient Disposition: SNF Transfer to: [facility] Under care of provider: Dr John Provider Discharge Comment: Stable for discharge to rehabilitation facility for ongoing rehab efforts. Discharge orders & Medications Prescriptions: New cyclobenzaprine 10 mg Tablet 5 mg PO Q8HR PRN (Reason: spasm) Qty: 30 0RF sennosides [senna] 8.6 mg Tablet 17.2 mg PO BEDTIME Qty: 30 0RF cephalexin 250 mg Capsule 500 mg PO TID Qty: 20 0RF oxycodone-acetaminophen 5-325 mg Tablet 1 tab PO Q4HR PRN (Reason: Pain, Severe (7-10)) Qty: 15 0RF lidocaine 5 % Adhesive Patch,Medicated 1 patch topical BEDTIME Qty: 14 0RF insulin glargine [Lantus Solostar U-100 Insulin] 100 unit/mL (3 mL) Insulin Pen 35 unit SUBCUT 0800 Qty: 30 0RF Continued atorvastatin 40 mg tablet 40 mg PO DAILY lisinopril 20 mg Tablet 20 mg PO DAILY sertraline 100 mg Tablet 100 mg PO DAILY diphenoxylate-atropine 2.5-0.025 mg tablet 2 tab Q4HR MDD 8 PRN (Reason: Diarrhea) Patient Comments: TAKE TWO TABLETS BY MOUTH EVERY FOUR HOURS NEEDED FOR DIARRHEA, UPTO 8 TABLETS PER DAY omeprazole 20 mg capsule,delayed release(DR/EC) 20 mg PO BID insulin aspart U-100 [Novolog FlexPen U-100 Insulin] 100 unit/mL (3 mL) insulin pen See Rx Instructions .ROUTE .COMPLEX Rx Instructions: unit subcutaneously ;based on carbs 13-16 solifenacin 10 mg tablet 10 mg PO DAILY potassium chloride 8 mEq capsule, extended release 8 meq PO DAILY torsemide 10 mg tablet 10 mg PO DAILY gabapentin 100 mg capsule 100 mg PO ONCE PM colchicine 0.6 mg tablet 0.6 mg PO DAILY Discontinued insulin glargine [Lantus Solostar U-100 Insulin] 100 unit/mL (3 mL) insulin pen See Rx Instructions .ROUTE .COMPLEX Patient Comments: Inject 46 units subcutaneously daily in the morning and inject 18 units nightly in the evening Rx Instructions: unit subcutaneously Follow up/Referrals: Juan Ren MD [Primary Care Provider] - Discharge Health Status Multidrug resistant organism: No MDRO Diet/Activity/Treatments Diet: Carb-consistent/Diabetic Liquid consistency: Normal/Thin Food texture: Regular Skin/Wound/Dressing Care Report to your healthcare provider any signs of infection, such as:: chills, fever and increased pain Special Rehabilitation Services Reason for rehabilitation: Recovery r/t decondition Rehab type: Physical therapy and Occupational therapy Visit Report/Discharge Packet Stand Alone Forms: Patient Portal/API Discharge Data Primary Care Provider: Juan Ren Quality VTE Deep Vein Thrombosis/Pulmonary Embolism Present on Admission: No MIPS - DC The patient has a history of heart transplant or Left Ventricular Assist Device (LVAD). If yes, STOP here.: No The patient has current or prior documentation of left ventricular ejection fraction (LVEF) less than or equal to 40%, or moderate or severely depressed left ventricular systolic function.: No
[2024-06-29] MEDS: cephALEXin 250 MG CAPSULE 500 MG PO (08:35)
[2024-06-29] MEDS: ENOXAPARIN 40 MG/0.4 ML SYRINGE SUBCUT (08:36)
[2024-06-29] MEDS: SERTRALINE 50 MG TABLET 100 MG PO (08:37)
[2024-06-29] MEDS: INSULIN LISPRO 100 UNIT/ML 3ML VIAL SUBCUT ×2 (08:38→11:24)
[2024-06-29] MEDS: INSULIN GLARGINE 100 UNIT/ML 3ML PEN 35 UNIT SUBCUT (08:39)
[2024-06-29] MEDS: KETOROLAC 30 MG/ML VIAL 15 MG IV (09:00)
[2024-06-29] MEDS: LIDOCAINE 5% PATCH 1 EACH TOP (09:05)
--- NOTE | 2024-06-29 10:45 | CM.DPC ---
DCP Cont. Reviewed EMR and team rounds for status updates. Pt has been medically cleared for d/c today to [facility]. They will transport her at 12:00pm, faxed d/c clinicals and PASSAR, no further needs are indicated at this time.
--- NOTE | 2024-06-29 10:56 | CM.DPC ---
DCP Cont. Reviewed EMR and team rounds for status updates. Pt has been medically cleared for d/c today to [facility] for rehab. They will transport her today at 2:30pm. No further d/c needs identified at this time.
--- NOTE | 2024-06-29 14:24 | PC.NURSE ---
Patient is A&OX4, VSS, afebrile on RA. She reports pain 6-8/10 to back but improved with prn pain medications. She is cleared for discharge to [facility] today. CM arranged transport for 12 pm. Transporter arrived before noon, pt toileted and given prn pain med for transport. TLSO brace in place. BG 220. Report given to [facility] RONNIE Jensen. She is transported via w/ch by transporter at 1220 this afternoon with all of her belongings, family following behind her.
== END 2024-06-29 12:30 | DRG 552 ==
LOC: ED 06-25 01:23 → AC 06-25 06:42
PROVIDERS: Admitting Provider Internal Medicine; Emergency Provider Emergency Medicine; PCP Internal Medicine; Referring Provider Emergency Medicine; Visit Provider Internal Medicine
DX: S32.051A Stable burst fracture of fifth lumbar vertebra, initial encounter for closed fracture (principal); C25.9 Malignant neoplasm of pancreas, unspecified; Z68.41 Body mass index [BMI] 40.0-44.9, adult; G54.4 Lumbosacral root disorders, not elsewhere classified; I10 Essential (primary) hypertension; E11.649 Type 2 diabetes mellitus with hypoglycemia without coma; E66.9 Obesity, unspecified; M48.061 Spinal stenosis, lumbar region without neurogenic claudication; E11.40 Type 2 diabetes mellitus with diabetic neuropathy, unspecified; W06.XXXA Fall from bed, initial encounter; Z79.4 Long term (current) use of insulin; Z87.891 Personal history of nicotine dependence
CPT/HCPCS: 36415; 72131; 72148; 72192; 73502; 80048; 81003; 81015; 82962; 85025; 87077; 87086; 87186; 96374; 97116; 97163; 97166; 97530; 97535; 99285; J1650; J1815; J1885; J2270

== ENCOUNTER → 2024-08-04 13:07 | Outpatient (ROUT) | payer MEDICARE, OTHER, SELFPAY ==
[2024-06-25 13:19] VITALS: BMI 41.9
[2024-08-04 13:22] LABS: Appearance Urine UA SL CLOUDY; Bilirubin Urine UA NEGATIVE (NEGATIVE); Color Urine UA YELLOW; Glucose Urine UA 2+ g/dL (Negative); Ketones Urine UA NEGATIVE (NEGATIVE); Leukocyte Esterase Urine UA 2+ (NEGATIVE); Nitrite Urine UA NEGATIVE (Negative); Occult Blood Urine UA NEGATIVE (Negative); Protein Urine UA NEGATIVE (Negative); Urobilinogen Urine UA 0.2 E.U./dL (0.2)
[2024-08-04 13:23] LABS: pH Urine UA 5.5 (4.5-8.0)
[2024-08-04 13:26] LABS: Bacteria Urine Many (>30); Culture Indicated Urine Specimen Cultured; RBC Urine None Seen (0-5/HPF); Squamous Epithelial Cell Urine None Seen (0-5/HPF); Urine Volume 10mL (spun); WBC Urine 5-10/HPF (0-5/HPF)
== END ==
PROVIDERS: PCP Internal Medicine; Visit Provider Hospitalist
DX: N39.0 Urinary tract infection, site not specified (principal)
CPT/HCPCS: 81001; 87077; 87086